=== PATIENT | male | born 1960 | race Caucasian/White ===

== ENCOUNTER 2024-05-01 23:29 | Inpatient (IN) | payer OTHER, SELFPAY ==
[2024-05-01] VITALS (8 sets, daily range): BP systolic 156–172; BP diastolic 84–96; BMI 26.0
[2024-05-01 21:44] LABS: % Basophils 0.5 % (0-2); % Immature Granulocytes 0.3 % (0-0.5); % Lymphocytes 22.2 % (20.5-51.1); % Monocytes 10.1 % (1.7-9.3); % Neutrophils 63.9 % (42.2-75.2); Absolute Eosinophils 0.2 10^3/uL (0-0.7); Absolute Lymphocytes 1.3 10^3/uL (1.2-3.4); Absolute Monocytes 0.6 10^3/uL (0.1-0.6); Absolute Neutrophils 3.8 10^3/uL (1.4-6.5); Hematocrit 45.7 % (39.0-52.0); Hemoglobin 15.2 g/dL (13.0-18.0); Mean Corp Hgb Conc. 33.3 g/dL (33.0-37.0); Mean Corpuscular Hgb 28.6 pg (27.0-31.0); Mean Corpuscular Volume 86.1 fL (80.0-94.0); Mean Platelet Volume 11.3 fL (7.4-10.4); Nucleated Red Blood Cells % 0 % (-); Platelet Count 163 10^3/uL (130-400); Red Blood Cell Count 5.31 10^6/uL (4.70-6.10); Red Cell Dist. Width 13.1 % (11.5-14.5); White Blood Cell Count 5.9 10^3/uL (4.8-10.8)
--- NOTE | 2024-05-01 21:53 | PHANOTE ---
med rec note- patient has no ecw and not making full sentence. family has not since patient in about a week . patient in car by himself
[2024-05-01 21:54] LABS: INR 0.96; PT 12.5 Sec (11.4-14.6)
[2024-05-01 21:57] LABS: ALT (SGPT) 27 U/L (0-50); AST (SGOT) 29 U/L (17-59); Albumin 4.3 g/dl (3.5-5.0); Alkaline Phosphatase 91 U/L (38-126); Blood Urea Nitrogen 16 mg/dl (9-20); Calcium 9.4 mg/dl (8.4-10.2); Carbon Dioxide 27 mmol/L (22-30); Chloride 101 mmol/L (98-107); Estimated Creatinine Clearance 68 ml/min; Glucose 224 mg/dl (70-99); Potassium 4.8 mmol/L (3.5-5.1); Sodium 141 mmol/L (135-145); Total Bilirubin 0.4 mg/dl (0.2-1.3); Total Protein 7.3 g/dl (6.3-8.2); eGFR > 60.00
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
[2024-05-01 22:08] LABS: Troponin I < 0.012 ng/ml
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
[2024-05-01] MEDS: ASPIRIN 300 MG RECTAL (23:45)
[2024-05-02] VITALS (20 sets, daily range): BP systolic 134–187; BP diastolic 76–119; PULSE 98–102; BMI 24.6
--- NOTE | 2024-05-02 | EDRN ---
Patient saturated in urine, changed brief, sheets and pulled up in bed, resting comfortably at this time, will call report to get patient upstairs.
--- NOTE | 2024-05-02 03:05 | PTCARENOTE ---
Pt admitted from ED. Assessment completed. Pt Q4 neuro and Qshift NIHSS. Pt assessment difficult due to diagnosis of Asperger syndrome (per the sister). Pt answering some question. Therapeutic communication tactics helped with talking more and
answering some questions, even smiled with laugh a few times. Pt appears easily over stimulated. Pt did state he feel anxious 'quite often' and sad because of 'autism'. Emotional support given. Pt able to minimally move (twitch) left leg when bottom
of left foot is touched, per ED RN this is new. Pt having no sensation or intentional movement in left arm. Left arm does posture up to chest with fingers bent and in fist, rolled washcloth placed in hand. Pt neck and head gravitates to right, Pt
able to turn head all the way left when asked. Pt follows finger but appears to look off then come right back to where finger has stopped. In what presents as a over stimulated way rather than loss of sight or drift. pt has call hutchison within reach
with education given. bed alarm on. Vitals stable at this time. Assessment care and vitals as charted.
[2024-05-02 05:40] LABS: Glucose - Point of Care 228 mg/dl (70-99)
[2024-05-02 05:45] LABS: Hematocrit 46.6 % (39.0-52.0); Hemoglobin 15.7 g/dL (13.0-18.0); Mean Corp Hgb Conc. 33.7 g/dL (33.0-37.0); Mean Corpuscular Hgb 28.5 pg (27.0-31.0); Mean Corpuscular Volume 84.7 fL (80.0-94.0); Mean Platelet Volume 11.7 fL (7.4-10.4); Platelet Count 172 10^3/uL (130-400); Red Cell Dist. Width 12.8 % (11.5-14.5); White Blood Cell Count 9.2 10^3/uL (4.8-10.8)
[2024-05-02 06:16] LABS: Troponin I < 0.012 ng/ml
[2024-05-02 06:20] LABS: Blood Urea Nitrogen 15 mg/dl (9-20); Calcium 9.3 mg/dl (8.4-10.2); Carbon Dioxide 23 mmol/L (22-30); Chloride 100 mmol/L (98-107); Estimated Creatinine Clearance 84 ml/min; Glucose 227 mg/dl (70-99); HDL Cholesterol 41 mg/dl; Magnesium 1.9 mg/dl (1.6-2.3); Potassium 4.3 mmol/L (3.5-5.1); Sodium 138 mmol/L (135-145); Total Cholesterol 278 mg/dl (50-199); eGFR > 60.00
[2024-05-02 06:48] LABS: Triglyceride 469 mg/dl (10-149)
[2024-05-02 07:21] LABS: Glucose - Point of Care 216 mg/dl (70-99)
[2024-05-02 07:30] LABS: LDL Cholesterol, Direct 147 mg/dl
--- NOTE | 2024-05-02 07:46 | PTCARENOTE ---
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 Pt becoming more hypertensive. Pt assessed, repositioned, temp taken (98.8). Pain assessed, labs unremarkable other than cholesterol. Per pt
not pain 'discomfort'. Day RN to contact Pt
--- NOTE | 2024-05-02 08:40 | PTOTSP ---
Speech Language Pathology
Pt seen for speech and language evaluations. Significantly decreased verbal initiation noted. Pt would immediately answer NURSE INFECTION CONTROL at times, and not answer at all at other times. When verbalizing, no dysarthria noted. L inattention noted with R gaze
preference. Language evaluated via the Quick Aphasia Battery (QAB), form 1. Results likely skewed given lack of responses many times. Overall score of 5.37, indicative of moderate deficits. Pt with the following deficits on the following
subtests: word comprehension= 7.08 (moderate); sentence comprehension= 0.00 (severe); word finding= 7.00 (mod); grammatical construction= 8.88 9 (mild); speech motor programming= 10.00 (WNL); repetition= 0.00 (severe); reading= 6.25 (moderate).
Pt also seen for clinical bedside swallow evaluation. P.O. trials of puree, regular solids, and thin liquids. Adequate mastication, bolus formation, and A-P transit noted with no oral residue. No overt signs of aspiration.
Recommend:
(1) Regular solids/thin liquids
(2) General aspiration precautions
(3) Meds as tolerated
(4) NURSE INFECTION CONTROL to continue to follow. Further dysphagia services not indicated. Will follow for cognitive-linguistic tx
[2024-05-02] MEDS: LOW STRENGTH ASPIRIN 81 MG PO (09:44)
[2024-05-02] MEDS: LOPRESSOR 12.5 MG PO ×2 (09:44→21:29)
[2024-05-02] MEDS: PLAVIX 75 MG PO (09:44)
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
[2024-05-02] MEDS: NOVOLOG FLEXPEN-MODERATE RESISTANCE 3 UNITS SC ×2 (11:15→14:45)
[2024-05-02 11:28] LABS: Glycohemoglobin (HgbA1c) 8.9 % (4.0-5.6)
--- NOTE | 2024-05-02 12:05 | PTCARENOTE ---
Received patient from hourly shift. Patient scored a 12 on NIH. Difficult to assess patient due Asbergers. Patient will not respond to certain questions or perform certain tasks. Patients can become tachycardic jumping up to the 130s, physician
notified and 12.5 mg metoprolol ordered. Patient ate small breakfast. Call hutchison within reach. Continuing to monitor.
[2024-05-02 13:18] LABS: Glucose - Point of Care 216 mg/dl (70-99)
--- NOTE | 2024-05-02 14:02 | W.PN.HOSP.TC ---
Today's Communication/Plan
-
See plan
Assessment / Plan
Assessment / Plan
Impression:
Acute right REMI territory infarct with left hemiparesis.
History of multiple CVA
Essential hypertension
NIDDM.
Plan:
Right REMI territory infarct.
MRI of the brain:
1. LARGE 8.6 cm ACUTE ISCHEMIC INFARCT in the ANTEROMEDIAL RIGHT FRONTAL LOBE (right anterior cerebral artery territory) containing severe cytotoxic edema.
2. Multiple small chronic infarcts in the white matter of both frontal lobes.
3. Small chronic lacunar infarcts in the basal ganglia.
4. Severe white matter leukoaraiosis in the frontal and parietal lobes.
5. Mild Wallerian degeneration in the right side of the midbrain and lisa.
6. Moderate diffuse cerebral and cerebellar volume loss.
CTA
There is absent flow/occlusion in the right anterior cerebral artery beyond the A2 segment of the right anterior cerebral artery with absent flow in the proximal portions of the right callosal marginal and pericallosal arteries with cross filling of
distal pericallosal branches
Risk factors dyslipidemia/LDL 147
Diabetes
ECG NSR/sinus tach. No known history of arrhythmias.
Was not a candidate for thrombolytics given unknown time of onset of symptoms/duration.
Initiated on dual antiplatelet therapy: Aspirin�Plavix.
Statin.
Permissive hypertension over the next 24 hours.
Echocardiogram pending
Follow neurochecks.
Physical therapy assessment
Essential hypertension
Permissive hypertension for the next 24 hours
Given significantly elevated SBP and tachycardia will initiate low-dose of beta-neftaly. Monitor closely
Type 2 diabetes
Hemoglobin A1c pending.
Confirm preadmission med regimen.
Continue basal bolus protocol with serial Accu-Cheks. Diet has been advanced with aspiration precautions.
Anticipated Discharge: 24 - 48 hours
Subjective/Interval History
-
Date of Service: May 02, 2024
Objective Data
-
Labs:
Laboratory Results
05/02/24
05:32
WBC 9.2
Hgb 15.7
Hct 46.6
Plt Count 172
Sodium 138
Potassium 4.3
Chloride 100
Carbon Dioxide 23
BUN 15
Creatinine 1.0
Glucose 227 H
Calcium 9.3
Vital Signs:
Vital Signs
Temp Pulse Resp BP Pulse Ox
98.4 F 112 21 172/111 94
05/02/24 13:10 05/02/24 09:44 05/02/24 06:45 05/02/24 09:44 05/02/24 06:45
I&O
05/01/24 05/02/24 05/03/24
06:59 06:59 06:59
Output Total 400 / 400 400 / 400
Balance -400 / -400 -400 / -400
Physical Exam
-
General: Well Developed and No Apparent Distress
HEENT: Normocephalic, Atraumatic and Moist Mucous Membranes
Respiratory: Clear to Auscultation
Cardiac: Regular Rhythm and S1/S2; Negative Murmur, Rub or Gallop
GI: Soft, Nontender, Nondistended and Normal Bowel Sounds; Negative Organomegaly
Rectal: Deferred by Provider
Musculoskeletal: No Clubbing, No Cyanosis and No Edema
Skin: Negative Rash
Neuro: Awake, Alert, Oriented and Other (Slow and intermittent response to questions. Left hemiparesis.)
[2024-05-02] MEDS: PROTONIX 20 MG PO (16:04)
--- NOTE | 2024-05-02 16:27 | CM ---
Patient with Hx Asperger Syndrome with Dx CVA with left hemiparesis. Room air. Brain MRI today. PT & OT recommends acute rehab. Physiatry Consult pending.
Spoke with patient's sister Poornima;
the patient resides alone in a mobile home with 4 TOPHER.
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 He had
rambling paranoid speech.
He has some housing insecurity due to not working and not paying his rent for several months- sister had to pay out about $3000 for his rent.
No prior DME, VN, SNF.
Pharmacy - [facility], [place]
The patient has no children. He has another sister in [facility].
The patient does not have a POA - Poornima is the process of doing POA.
Discussed patient's current functional status as per PT/OT. Poornima was informed re; Physiatry Consult. She is aware that if he goes to [facility] for [place] he would need a terminal block assembler plan, likely SNF placement. She would be interested in [facility] as
patient's mother resides there.
Case discussed with [facility] Liaison.
Plan follow up after seen by Physiatry.
--- NOTE | 2024-05-02 16:56 | CM ---
Patient with Hx Asperger Syndrome with Dx CVA with left hemiparesis. Room air. Brain MRI today. PT & OT recommends acute rehab. Physiatry Consult pending.
Spoke with patient's sister Poornima;
the patient resides alone in a mobile home with 4 TOPHER.
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
sugar. The patient has not been showering and not cleaning his home. He has had rambling paranoid speech per his sister.
His sister had contacted [facility] for resources.
He has some housing insecurity due to not working and not paying his rent for several months- sister had to pay out about $3000 for his rent.
No prior DME, VN, SNF.
Pharmacy - [facility] [address], [place]
The patient has no children. He has another sister in [facility].
The patient does not have a POA - Poornima is the process of doing POA.
Discussed patient's current functional status as per PT/OT. Poornima was informed re; Physiatry Consult. She is aware that if he goes to [facility] for [place] he would need a prison plan, likely SNF placement. She would be interested in [facility] as
patient's mother resides there.
Case discussed with [facility]iaison.
Plan follow up after seen by Physiatry.
[2024-05-02] MEDS: NOVOLOG FLEXPEN-MODERATE RESISTANCE 5 UNITS SC (17:49)
[2024-05-02] MEDS: LIPITOR 80 MG PO (17:52)
[2024-05-02 17:58] LABS: Glucose - Point of Care 264 mg/dl (70-99)
[2024-05-02 21:43] LABS: Glucose - Point of Care 187 mg/dl (70-99)
[2024-05-02] MEDS: TYLENOL 650 MG PO (21:47)
[2024-05-03] VITALS (13 sets, daily range): BP systolic 102–175; BP diastolic 64–110; PULSE 79
--- NOTE | 2024-05-03 01:34 | PTCARENOTE ---
Addendum entered by Sherry Schaffer RN 05/03/24 05:26:
Per neurology Recommendations, Permissive HTN. See work list for vital trend.
Original Note:
Pt able to communicate at times. Pt appearing to be more somber and tired this shift. Pt did laugh 2 times with RN. Pt not responding verbally a much as previous night. Pt able to communicate better with thumbs up thumbs down questions. Pt continues
on NIH and neuro checks, assessments difficult due to HX of Asperger. Call within reach. bed alarm on. Assessment care and vitals as charted.
--- NOTE | 2024-05-03 06:29 | PTCARENOTE ---
Pt taking out IV. VAT called and replaced.
[2024-05-03] MEDS: LOPRESSOR 12.5 MG PO (08:19)
[2024-05-03] MEDS: NOVOLOG FLEXPEN-MODERATE RESISTANCE 3 UNITS SC ×2 (08:19→17:11)
[2024-05-03] MEDS: PLAVIX 75 MG PO (08:19)
[2024-05-03] MEDS: PROTONIX 20 MG PO (08:19)
[2024-05-03] MEDS: LOW STRENGTH ASPIRIN 81 MG PO (08:20)
[2024-05-03 08:21] LABS: Glucose - Point of Care 248 mg/dl (70-99)
--- NOTE | 2024-05-03 09:50 | PN.CDI ---
CDI
- -
CDI:
Physician Documentation Request
Admit Date: 05/01/24 23:29
Dear Doctor Ck,
Please review the following and provide your response in the progress notes.
Clinical Indicators
The diagnosis of cytotoxic edema was included in the signed MRI of brain on 05/02/24.
Additional clinical indicators in the chart include:
Pt admitted with stroke.
05/02 brain MRI: 'Large acute infarct demonstrates restricted diffusion and contains a large amount of acute cytotoxic edema.'
Please indicate in your progress notes if you are in agreement that the above diagnosis is valid for this patient:
Cytotoxic edema is a valid diagnosis (Please include it in your progress notes)
Cytotoxic edema is not a valid diagnosis for this patient
Cytotoxic edema is not yet confirmed but remains a suspected condition
Other
Use of terms such as suspected, likely, concern for, or probable are acceptable for a diagnosis that is being evaluated, monitored or treated as if it exists and can be coded in the inpatient setting, when documented at the time of discharge.
Thank you,
Grace Hansen RN, BSN
CDI Specialist
Available via [place] [employer]
Please use your independent medical judgment in providing your response.
--- NOTE | 2024-05-03 10:44 | PTCARENOTE ---
Pt slightly restless today, pulling off condom cath and clothing frequently. Emotional support provided. Goal normotension today, plan discussed with neurologist Dr. Stover at bedside.
--- NOTE | 2024-05-03 10:55 | PTCARENOTE ---
Plan discussed with attending, will resume medications for diabetes and blood pressure control, will downgrade pt to med surg.
[2024-05-03] MEDS: ZESTRIL 5 MG PO (11:50)
[2024-05-03] MEDS: ACTOS 15 MG PO (11:50)
[2024-05-03] MEDS: NOVOLOG FLEXPEN-MODERATE RESISTANCE 5 UNITS SC (11:50)
[2024-05-03 11:54] LABS: Glucose - Point of Care 295 mg/dl (70-99)
--- NOTE | 2024-05-03 14:32 | PTCARENOTE ---
Pt written for transfer to [facility], attempt to call report to [facility] -RN unavailable at this time.
--- NOTE | 2024-05-03 14:58 | W.PN.HOSP.TC ---
Today's Communication/Plan
-
DAPT.
Statin.
PT/physiatry evaluation.
Adjust antihypertensive regimen.
Reintroduce Actos. Continue basal bolus protocol with serial Accu-Cheks.
Assessment / Plan
Assessment / Plan
Impression:
Acute right REMI territory infarct with left hemiparesis.
History of multiple CVA
Essential hypertension
NIDDM.
Asperger syndrome reported
Plan:
Right REMI territory infarct.
MRI of the brain:
1. LARGE 8.6 cm ACUTE ISCHEMIC INFARCT in the ANTEROMEDIAL RIGHT FRONTAL LOBE (right anterior cerebral artery territory) containing severe cytotoxic edema.
2. Multiple small chronic infarcts in the white matter of both frontal lobes.
3. Small chronic lacunar infarcts in the basal ganglia.
4. Severe white matter leukoaraiosis in the frontal and parietal lobes.
5. Mild Wallerian degeneration in the right side of the midbrain and lisa.
6. Moderate diffuse cerebral and cerebellar volume loss.
CTA
There is absent flow/occlusion in the right anterior cerebral artery beyond the A2 segment of the right anterior cerebral artery with absent flow in the proximal portions of the right callosal marginal and pericallosal arteries with cross filling of
distal pericallosal branches
Risk factors dyslipidemia/LDL 147
Diabetes
ECG NSR/sinus tach. No known history of arrhythmias.
Found not to be a candidate for thrombolytics given unknown time of onset of symptoms/duration.
Initiated on dual antiplatelet therapy: Aspirin�Plavix. For 21 days with aspirin on day 22.
Statin.
Permissive hypertension over the next 24 hours.
Echocardiogram with preserved biventricular function and no evidence of cardioembolic source.
Physical therapy assessment
Physiatry consultation
Essential hypertension
Adjust antihypertensive regimen with increased dose of Toprol and addition of lisinopril.
Type 2 diabetes
Hemoglobin A1c 8.9
Resume Actos
Continue basal bolus protocol.
Adjust accordingly
Anticipated Discharge: 24 - 48 hours
Subjective/Interval History
-
Date of Service: May 03, 2024
Objective Data
-
Vital Signs:
Vital Signs
Temp Pulse Resp BP Pulse Ox
98.3 F 86 18 137/88 97
05/03/24 11:00 05/03/24 14:36 05/03/24 14:36 05/03/24 14:36 05/03/24 07:15
I&O
05/02/24 05/03/24 05/04/24
06:59 06:59 06:59
Intake Total 60 / 60
Output Total 400 / 400 850 / 850
Balance -400 / -400 -790 / -790
Physical Exam
-
General: Well Developed and No Apparent Distress
HEENT: Normocephalic, Atraumatic and Moist Mucous Membranes
Respiratory: Clear to Auscultation
Cardiac: Regular Rhythm and S1/S2; Negative Murmur, Rub or Gallop
GI: Soft, Nontender, Nondistended and Normal Bowel Sounds; Negative Organomegaly
Rectal: Deferred by Provider
Musculoskeletal: No Clubbing, No Cyanosis and No Edema
Skin: Negative Rash
Neuro: Awake, Alert, Oriented and Other (Slow and intermittent response to questions. Left hemiparesis and neglect)
--- NOTE | 2024-05-03 15:09 | PTCARENOTE ---
Report given to YASMIN Gonzales, will send pt up to [facility] when finished working with PT/OT.
[2024-05-03 15:52] LABS: Glucose - Point of Care 228 mg/dl (70-99)
--- NOTE | 2024-05-03 16:41 | CM ---
Patient with Hx Asperger Syndrome with Dx CVA with left hemiparesis. Room air. PT & OT recommends acute rehab. Physiatry Consult pending.
Message to [facility] Liaison & Dr Blackman requesting Physiatry Eval.
Message from [facility]; not sure patient will be able to tolerate acute rehab. Will see how he does in therapy and revisit tomorrow.
Met with patient while he was working with PT/OT.
Met with mother and patient's sister Poornima; provided Poornima with 2 types of POA applications for healthcare or financial POAs, as found on [employer], official [place] website. His sister plans on having notary come in and establishing POA to help
patient with LTC plans.
Plan follow up with [facility] after PT/OT Re-eval tomorrow.
[2024-05-03] MEDS: LIPITOR 80 MG PO (17:15)
[2024-05-03 21:34] LABS: Glucose - Point of Care 252 mg/dl (70-99)
--- NOTE | 2024-05-03 21:37 | PTCARENOTE ---
Patient uncooperative with NIH, he follow basic commends like lifting his right hand and foot but refused to answer any question or open his eyes. When I attempted to open his eyes he close it tighter. Will try NIH later.
[2024-05-04 03:10] VITALS: BP 133/85
[2024-05-04 07:24] VITALS: BP 146/80
[2024-05-04 07:37] LABS: Glucose - Point of Care 270 mg/dl (70-99)
[2024-05-04] MEDS: NOVOLOG FLEXPEN-MODERATE RESISTANCE 5 UNITS SC ×2 (08:50→13:45)
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
--- NOTE | 2024-05-04 09:30 | PTOTSP ---
Speech Language Pathology
Pt seen for speech/language therapy. Upon arrival, pt sleeping. No response to verbal or tactile stimulation, including sternal rub. Notified PCT and RNs assessed pt. Once RN manually opened pt's eyes, eyes remained open for short period of
time. Vital signs stable. Attempted therapy with minimal ability to participate. Eyes remained closed unless manually opened by CARGO SUPERVISOR. They would remain open for less than a minute at times, and pt visually fixated on CARGO SUPERVISOR x2, but did not visually
track. Intermittent 1-step command following (60%). Minimal head shake/nod noted to 4 yes/no questions during entirety of session, including pt shaking head yes to 'Are you having more trouble talking?' No verbalizations or vocalizations noted
despite max cueing.
Pt also seen for dysphagia tx. Per PCT and RN, pt ate breakfast with some assistance this date. Oral holding of liquids was frequently noted per their report. This was not noted on evaluation 05/02. Pt accepted small sip of water via straw. No
oral manipulation noted despite max cueing (verbal, tactile, etc). CARGO SUPERVISOR had to get oral swab to push water out of oral cavity. Further P.O. trials deferred. Concerned regarding change in status from evaluation on 05/02. Notified neurology and
hospitalist.
Recommend:
(1) NPO
(2) Oral care 4x/day with suctioning as needed
(3) Non-oral meds while largely unresponsive
(4) CARGO SUPERVISOR to continue to follow
[2024-05-04 09:39] LABS: Glucose - Point of Care 293 mg/dl (70-99)
[2024-05-04] MEDS: TYLENOL/FEVERALL 650 MG RECTAL (10:40)
[2024-05-04] MEDS: ACTOS PO (11:28)
[2024-05-04] MEDS: NSS 1000 IV (11:28)
[2024-05-04 11:51] LABS: % Basophils 0.4 % (0-2); % Eosinophils 0.3 % (0-6); % Immature Granulocytes 0.2 % (0-0.5); % Lymphocytes 12.2 % (20.5-51.1); % Monocytes 10.3 % (1.7-9.3); % Neutrophils 76.6 % (42.2-75.2); Absolute Lymphocytes 1.2 10^3/uL (1.2-3.4); Absolute Neutrophils 7.5 10^3/uL (1.4-6.5); Hematocrit 47.3 % (39.0-52.0); Hemoglobin 16.4 g/dL (13.0-18.0); Mean Corp Hgb Conc. 34.7 g/dL (33.0-37.0); Mean Corpuscular Hgb 29.6 pg (27.0-31.0); Mean Corpuscular Volume 85.4 fL (80.0-94.0); Mean Platelet Volume 11.3 fL (7.4-10.4); Nucleated Red Blood Cells % 0 % (-); Platelet Count 165 10^3/uL (130-400); Red Blood Cell Count 5.54 10^6/uL (4.70-6.10); Red Cell Dist. Width 13.2 % (11.5-14.5); White Blood Cell Count 9.8 10^3/uL (4.8-10.8)
[2024-05-04 11:56] VITALS: BP 128/70
[2024-05-04 11:58] LABS: Glucose - Point of Care 314 mg/dl (70-99)
[2024-05-04 12:12] LABS: Blood Urea Nitrogen 26 mg/dl (9-20); Calcium 9.2 mg/dl (8.4-10.2); Carbon Dioxide 19 mmol/L (22-30); Chloride 98 mmol/L (98-107); Estimated Creatinine Clearance 70 ml/min; Glucose 329 mg/dl (70-99); Potassium 4.7 mmol/L (3.5-5.1); Sodium 134 mmol/L (135-145); eGFR > 60.00
--- NOTE | 2024-05-04 13:09 | W.PN.NEURO.1 ---
Today's Communication / Plan
-
63-year-old male with history of uncontrolled hypertension right frontal infarct with profound left hemiplegia who was improving. He is currently unresponsive
Plan: CT head/EEG/IV Keppra/chest x-ray/ID consult
Neuro Assessment/Plan
Assessment
63 yr. old male with h/o right frontal infarction with left hemiplegia who is currently febrile and unresponsive
Plan
1. Chest x-ray
2. IV antibiotics
3. ID consult
4. N.p.o.
5. EEG
6. IV KEPPRA
Subjective/Objective
Subjective Data
Date of Service: May 04, 2024
Mr. Varghese remains hemiplegic and following breakfast has been somnolent and difficult to arouse
Objective Data
Vital Signs
Temp Pulse Resp BP Pulse Ox
37.0 C 85 16 128/70 96
05/04/24 11:56 05/04/24 11:56 05/04/24 11:56 05/04/24 11:56 05/04/24 11:56
Lab Results
05/04/24 11:40
05/04/24 11:40
PT 12.5 Sec (11.4-14.6) 05/01/24 21:36
INR 0.96 05/01/24 21:36
APTT 25.0 Sec (23.4-35.0) 05/01/24 21:36
Sodium 134 mmol/L (135-145) L 05/04/24 11:40
Potassium 4.7 mmol/L (3.5-5.1) 05/04/24 11:40
BUN 26 mg/dl (9-20) H 05/04/24 11:40
Glucose 329 mg/dl (70-99) H 05/04/24 11:40
Calcium 9.2 mg/dl (8.4-10.2) 05/04/24 11:40
LDL Cholesterol Direct 147 mg/dl 05/02/24 05:32
LDL Cholesterol, Calc mg/dl 05/02/24 05:32
Patient Allergies
Penicillins Allergy (Verified 05/01/24 21:59)
Unknown
Review of Systems
-
Unable to obtain full review of systems at this time due to: Acuity and Lethargy
Constitutional: Fever
EENT: No Symptoms Reported
Respiratory: No Symptoms
Cardiac: No Symptoms
Abdomen/GI: No Symptoms
Genitourinary: No Symptoms
Musculoskeletal: No Symptoms
Skin: No Symptoms
Neuro: Weakness
Endocrine: No Symptoms
Hematologic / Lymphatic: No Symptoms
Allergy / Immunology: No Symptoms
Physical Exam
-
General: Well Developed, Well Nourished and Comfortable
Eyes: Able to visualize OU, Round OU, [place] Conjunctivae, No Ptosis and PERRLA
HEENT: Normocephalic and Atraumatic
Neck: No Bruits Bilaterally and Full Range of Motion
Respiratory: Decreased Breath Sounds
Cardiac: Regular Rhythm
GI: Normal Bowel Sounds
Skin: Unremarkable
Extremities: No Clubbing, No Cyanosis and No Edema
Psych: Unable to Assess
Extended Neurological Exam
Mood & Affect: Unable to Assess
Attention Span & Concentration: Unresponsive to Verbal Stimuli
Memory: Unable to Assess
Tremor: Hand Tremor Absent and Head Tremor Absent
Involuntary Movement: None
Speech: Unable to Assess
Cranial Nerve II: Left Eye: Visual Cole Grossly Intact
Cranial Nerve II: Right Eye: Visual Cole Grossly Intact
Cranial Nerves III, IV, : Extraocular Movement: Extraocular Movement Full in all Directions
Cranial Nerve V: Facial Sensation: Intact to Light Touch
Cranial Nerve VII: Facial Symmetry: Reduced
Cranial Nerve VIII: Hearing: Unable to Assess
Cranial Nerves IX, X: Palate Movement: Unable to Assess
Cranial Nerve XI: Shoulder Shrug: Unable to Assess
Cranial Nerve XII: Tongue Protusion: Unable to Assess
Muscle Strength, Overall: Reduced on Left
Muscle Bulk & Tone: Increased Tone
Pronator Drift: Unable to Assess
Deep Tendon Reflexes: Trace Throughout
Cold Sensation: Reduced and Unable to Assess
Vibration Sensation: Reduced and Unable to Assess
Touch Sensation: Unable to Assess
Coordination: Unable to Assess
Babinski Sign: Present on Left
Gait & Station: Unable to Assess
Modified Castro Score (MRS)
-
Modified Castro Scale (mRS): Severe disability. Requires constant nursing care.
Score: 5
[2024-05-04] MEDS: DEPACON 55 MG IV (14:15)
[2024-05-04] MEDS: KEPPRA 500 MG IV (14:16)
[2024-05-04] MEDS: PLAVIX PO ×2 (14:39→19:22)
[2024-05-04] MEDS: TOPROL XL PO ×2 (14:39→19:22)
[2024-05-04] MEDS: ZESTRIL PO ×2 (14:40→19:22)
[2024-05-04] MEDS: LIPITOR PO ×2 (14:40→19:22)
[2024-05-04] MEDS: LOW STRENGTH ASPIRIN PO ×2 (14:40→19:21)
[2024-05-04] MEDS: PROTONIX PO ×2 (14:40→19:22)
[2024-05-04 15:15] VITALS: BP 122/74
--- NOTE | 2024-05-04 15:18 | CM ---
CM reviewed chart, spoke with nurse and Dr. Blackman. Per Dr. Blackman, patient not able to participate in therapy, not appropriate for acute rehab at this time. CM will watch for updated PT notes for recommendations. CM will continue to follow for
all discharge planning needs.
Plan; watch for updated PT recommendations, may need SNF vs Acute Rehab is able to participate.
--- NOTE | 2024-05-04 15:25 | W.PN.HOSP.TC ---
Today's Communication/Plan
-
Fever workup.
Aspiration precautions
Empiric antibiotics
Assessment / Plan
Assessment / Plan
Impression:
Acute right REMI territory infarct with left hemiparesis.
Fever
History of multiple CVA
Essential hypertension
NIDDM.
Asperger syndrome reported
Plan:
Right REMI territory infarct.
MRI of the brain:
1. LARGE 8.6 cm ACUTE ISCHEMIC INFARCT in the ANTEROMEDIAL RIGHT FRONTAL LOBE (right anterior cerebral artery territory) containing severe cytotoxic edema.
2. Multiple small chronic infarcts in the white matter of both frontal lobes.
3. Small chronic lacunar infarcts in the basal ganglia.
4. Severe white matter leukoaraiosis in the frontal and parietal lobes.
5. Mild Wallerian degeneration in the right side of the midbrain and lisa.
6. Moderate diffuse cerebral and cerebellar volume loss.
CTA
There is absent flow/occlusion in the right anterior cerebral artery beyond the A2 segment of the right anterior cerebral artery with absent flow in the proximal portions of the right callosal marginal and pericallosal arteries with cross filling of
distal pericallosal branches
Risk factors dyslipidemia/LDL 147
Diabetes
ECG NSR/sinus tach. No known history of arrhythmias.
Found not to be a candidate for thrombolytics given unknown time of onset of symptoms/duration.
Initiated on dual antiplatelet therapy: Aspirin�Plavix. For 21 days with aspirin on day 22.
Statin.
Permissive hypertension over the next 24 hours.
Echocardiogram with preserved biventricular function and no evidence of cardioembolic source.
Physical therapy assessment
Physiatry consultation
New onset of fever 05/03 - 05/04.
Lethargic.
Concern for evolving infection/sepsis: At risk for aspiration, UTI
Sepsis workup including blood culture, urinalysis with reflex to culture
Chest x-ray with no parenchymal abnormalities, although with significant risk for aspiration
Keep n.p.o. while awaiting oral medications with caution.
Repeat CT scan of the head.
Empiric antibiotics: Ceftriaxone covering potential UTI versus aspiration
IV fluids normotonic solution for maintenance
Essential hypertension
Adjust antihypertensive regimen with increased dose of Toprol and addition of lisinopril.
Type 2 diabetes
Hemoglobin A1c 8.9
Given persistent neurologic deficiencies hold Actos
Continue basal bolus protocol
Anticipated Discharge: > 48 hours
Subjective/Interval History
-
Date of Service: May 04, 2024
Objective Data
-
Labs:
Laboratory Results
05/04/24
11:40
WBC 9.8
Hgb 16.4
Hct 47.3
Plt Count 165
Sodium 134 L
Potassium 4.7
Chloride 98
Carbon Dioxide 19 L
BUN 26 H
Creatinine 1.2
Glucose 329 H
Calcium 9.2
Vital Signs:
Vital Signs
Temp Pulse Resp BP Pulse Ox
98.7 F 69 18 122/74 96
05/04/24 15:15 05/04/24 15:15 05/04/24 15:15 05/04/24 15:15 05/04/24 15:15
I&O
05/03/24 05/04/24 05/05/24
06:59 06:59 06:59
Intake Total 60 / 60
Output Total 850 / 850 125 / 125
Balance -790 / -790 -125 / -125
Physical Exam
-
General: Well Developed and No Apparent Distress
HEENT: Normocephalic, Atraumatic and Moist Mucous Membranes
Respiratory: Clear to Auscultation
Cardiac: Regular Rhythm and S1/S2; Negative Murmur, Rub or Gallop
GI: Soft, Nontender, Nondistended and Normal Bowel Sounds; Negative Organomegaly
Rectal: Deferred by Provider
Musculoskeletal: No Clubbing, No Cyanosis and No Edema
Skin: Negative Rash
Neuro: Other (Left hemiparesis and neglect. Lethargic)
[2024-05-04] MEDS: STERILE WATER FOR INJECTION 10 ML IV (17:59)
[2024-05-04] MEDS: ROCEPHIN 1000 MG IV (17:59)
[2024-05-04 18:12] LABS: Glucose - Point of Care 151 mg/dl (70-99)
[2024-05-04] MEDS: NOVOLOG FLEXPEN-MODERATE RESISTANCE 1 UNITS SC (18:45)
[2024-05-04 18:59] LABS: Urine Albumin Trace (Neg - Trace); Urine Bilirubin Negative (Negative); Urine Character Clear (Clear); Urine Color Yellow; Urine Glucose 3+ (Negative); Urine Ketone Trace (Negative); Urine Leukocyte Negative (Negative); Urine Nitrite Negative (Negative); Urine Occult Blood Negative (Negative); Urine Specific Gravity 1.025 (<1.030); Urine Urobilinogen Negative (Neg - 1+)
[2024-05-04 19:53] VITALS: BP 142/73
[2024-05-04 23:14] LABS: Glucose - Point of Care 218 mg/dl (70-99)
[2024-05-04 23:17] VITALS: BP 120/76
[2024-05-04] MEDS: NOVOLOG FLEXPEN-MODERATE RESISTANCE 3 UNITS SC (23:28)
[2024-05-05] VITALS (8 sets, daily range): BP systolic 107–143; BP diastolic 53–83; PULSE 66; O2SAT 98
[2024-05-05] MEDS: KEPPRA 500 MG IV ×2 (02:19→14:46)
[2024-05-05] MEDS: NSS 1000 IV ×2 (02:22→16:15)
[2024-05-05 06:07] LABS: Glucose - Point of Care 210 mg/dl (70-99)
[2024-05-05] MEDS: NOVOLOG FLEXPEN-MODERATE RESISTANCE 3 UNITS SC (06:10)
[2024-05-05] MEDS: PROTONIX PO (07:49)
[2024-05-05] MEDS: PLAVIX PO (07:49)
[2024-05-05] MEDS: LOW STRENGTH ASPIRIN PO (07:49)
[2024-05-05] MEDS: TOPROL XL PO (07:49)
[2024-05-05] MEDS: ZESTRIL PO (07:49)
[2024-05-05 07:53] LABS: % Basophils 0.4 % (0-2); % Eosinophils 1.8 % (0-6); % Immature Granulocytes 0.4 % (0-0.5); % Lymphocytes 17.2 % (20.5-51.1); % Monocytes 10.6 % (1.7-9.3); % Neutrophils 69.6 % (42.2-75.2); Absolute Eosinophils 0.1 10^3/uL (0-0.7); Absolute Lymphocytes 1.4 10^3/uL (1.2-3.4); Absolute Monocytes 0.8 10^3/uL (0.1-0.6); Absolute Neutrophils 5.5 10^3/uL (1.4-6.5); Hematocrit 45.3 % (39.0-52.0); Hemoglobin 15.3 g/dL (13.0-18.0); Mean Corp Hgb Conc. 33.8 g/dL (33.0-37.0); Mean Corpuscular Hgb 28.8 pg (27.0-31.0); Mean Corpuscular Volume 85.2 fL (80.0-94.0); Nucleated Red Blood Cells % 0 % (-); Platelet Count 153 10^3/uL (130-400); Red Blood Cell Count 5.32 10^6/uL (4.70-6.10); Red Cell Dist. Width 13.2 % (11.5-14.5); White Blood Cell Count 7.9 10^3/uL (4.8-10.8)
[2024-05-05] MEDS: DEPACON IV (08:00)
[2024-05-05 08:25] LABS: Blood Urea Nitrogen 23 mg/dl (9-20); Calcium 8.7 mg/dl (8.4-10.2); Carbon Dioxide 21 mmol/L (22-30); Chloride 101 mmol/L (98-107); Estimated Creatinine Clearance 77 ml/min; Glucose 190 mg/dl (70-99); Potassium 4.2 mmol/L (3.5-5.1); Sodium 138 mmol/L (135-145); eGFR > 60.00
--- NOTE | 2024-05-05 09:35 | PTOTSP ---
Speech Language Pathology
Pt seen for cognitive-lingusitic tx. Initially drowsy with no response to verbal or tactile stimulation. However, after oral suctioning, eyes open and pt more alert. Mod-severe cognitive-linguistic deficits noted. No verbalizations or
vocalizations noted during session despite max cueing. When asked pt if he was having trouble, he shook his head yes. Pt able to visually fixate on FIELD MARKETING MANAGER and able to track FIELD MARKETING MANAGER to L side of bed given mod cueing. Simple yes/no questions answered 50%
of the time. He followed 1-step commands 50% of the time as well.
Pt also seen for dysphagia tx. Sister reported that pt has had choking episodes since CVA 3 years ago. Consistently oral holding thin liquids without swallow initiation. Oral suctioning completed. With puree and moderately thick liquids,
prolonged bolus formation and A-P transit noted, but was able to initiate swallow without oral residue. No overt signs of aspiration, but unable to rule out silent aspiration bedside. Pt will need VSE, but will wait until more consistently
responsive.
Recommend:
(1) Cautious initiation of IDDSI Level 4 (Puree) and Moderately thick liquids
(2) Aspiration precautions: sit upright, full supervision with assist as needed, slow rate, liquids via tsp or single cup sips, ensure oral cavity clear post P.O. intake with oral suctioning
(3) If oral holding consistently noted, stop meal
(4) If signs of aspiration with P.O. intake, make NPO
(5) Meds crushed in puree
(6) Will determine appropriate timing of VSE
(7) FIELD MARKETING MANAGER to continue to follow
[2024-05-05] MEDS: DEPACON 55 MG IV (09:44)
--- NOTE | 2024-05-05 10:40 | CM ---
Patient seen at bedside with sister Merrill
States she is working on POA with a instructional technologist.
Per note from Catherine Hilton from [facility], based on his current status, he would be a candidate for SNF.
Options of SNF given to sister. Discussed looking at facilities as well.
Sister also stated he would need SNF with LTC.
Referrals placed to [facility] - Will need authorization.
PLAN: Discharge when medically stable to SNF/LTC
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
[2024-05-05 12:25] LABS: Glucose - Point of Care 163 mg/dl (70-99)
[2024-05-05] MEDS: NOVOLOG FLEXPEN-MODERATE RESISTANCE 1 UNITS SC ×2 (12:29→17:08)
--- NOTE | 2024-05-05 12:59 | W.PN.NEURO.1 ---
Documented by User: Claudette Rod NP 05/05/24 13:58
Today's Communication / Plan
-
.
Neuro Assessment/Plan
Assessment
This is a 63-year-old male who presented to on 05/01/24 with report of confusion, aphasia, and left sided hemiparesis. He was outside of the time window for TNK/IAT.
05/04/24 AMS, patient obtunded. Febrile to 101.2 and exam concerning for seizure. Keppra initiated.
-CTA head/neck 05/01/24: There is absent flow/occlusion in the right anterior cerebral artery beyond the A2 segment of the right anterior cerebral artery with absent flow in the proximal portions of the right callosal marginal and pericallosal
arteries with cross filling of distal pericallosal branches.
-MRI brain 05/02/24: LARGE 8.6 cm ACUTE ISCHEMIC INFARCT in the ANTEROMEDIAL RIGHT FRONTAL LOBE (right anterior cerebral artery territory) containing severe cytotoxic edema. Multiple small chronic infarcts in the white matter of both frontal lobes.
Small chronic lacunar infarcts in the basal ganglia. Severe white matter leukoaraiosis in the frontal and parietal lobes. Mild Wallerian degeneration in the right side of the midbrain and lisa. Moderate diffuse cerebral and cerebellar volume loss.
-EEG 05/04/24: pending.
I. Large R REMI territory ischemic infarct in the setting of R A2 REMI occlusion. Etiology possibly cardioembolic.
II. Multiple old chronic infarcts.
III. NIDDM.
IV. HLD
V. HTN
Plan
-Continue Keppra 500mg IV q12hrs.
-Continue DAPT with aspirin 81mg daily and Plavix 75mg daily for 21 days. After 21 days, stop Plavix and continue aspirin 81mg daily only, indefinitely.
-Goal normotension.
-Goal normothermia.
-Monitor on telemetry, consider outpatient Holter monitoring.
-LDL goal <70. LDL is 147. Continue atorvastatin 80mg daily.
-Goal normoglycemia, hbA1c is 8.9.
-NIHSS and neurological checks per unit guidelines.
-Patient provided with a stroke education packet.
-PT/OT/ST evaluations.
-DVT prophylaxis.
-Patient should follow-up with Neurology in 4-6 weeks, may see the LUGGAGE LINER or one of the physicians.
Subjective/Objective
Subjective Data
Date of Service: May 05, 2024
No acute events overnight. Patient is still lethargic today but was more alert and interactive this morning per his family at bedside. No further fevers. His left side was previously spastic, and is now normal tone.
Objective Data
Vital Signs
Temp Pulse Resp BP Pulse Ox
97.9 F 64 18 122/81 97
05/05/24 11:54 05/05/24 11:54 05/05/24 11:54 05/05/24 11:54 05/05/24 11:54
Lab Results
05/05/24 06:39
05/05/24 06:39
PT 12.5 Sec (11.4-14.6) 05/01/24 21:36
INR 0.96 05/01/24 21:36
APTT 25.0 Sec (23.4-35.0) 05/01/24 21:36
Sodium 138 mmol/L (135-145) 05/05/24 06:39
Potassium 4.2 mmol/L (3.5-5.1) 05/05/24 06:39
BUN 23 mg/dl (9-20) H 05/05/24 06:39
Glucose 190 mg/dl (70-99) H 05/05/24 06:39
Calcium 8.7 mg/dl (8.4-10.2) 05/05/24 06:39
LDL Cholesterol Direct 147 mg/dl 05/02/24 05:32
LDL Cholesterol, Calc mg/dl 05/02/24 05:32
Patient Allergies
Penicillins Allergy (Verified 05/01/24 21:59)
Unknown
LDL Level: >70, statin ordered
Review of Systems
-
Unable to obtain full review of systems at this time due to: Lethargy
Physical Exam
-
General: No Apparent Distress
Eyes: PERRLA
HEENT: Normocephalic and Atraumatic
GI: Non-distended
Extremities: No Clubbing, No Cyanosis and No Edema
Psych: Unable to Assess
Extended Neurological Exam
Mood & Affect: Unable to Assess
Attention Span & Concentration: Lethargic and Closes Eyes after Stimulation (opens eyes to pain, not following commands currently)
Memory: Unable to Assess
Tremor: Hand Tremor Absent and Head Tremor Absent
Involuntary Movement: None
Speech: Moderately Reduced Output and Dysarthric
Cranial Nerve II: Left Eye: Pupillary Reactivity Unremarkable, Pupillary Size Unremarkable and Unable to Assess Visual Cole
Cranial Nerve II: Right Eye: Pupillary Reactivity Unremarkable, Pupillary Size Unremarkable and Unable to Assess Visual Cole
Cranial Nerves III, IV, : Extraocular Movement: Unable to Assess (gaze is midline)
Cranial Nerve V: Facial Sensation: Unable to Assess
Cranial Nerve VII: Facial Symmetry: Reduced (left facial drooping)
Cranial Nerve VIII: Hearing: Unable to Assess
Cranial Nerves IX, X: Palate Movement: Unable to Assess
Cranial Nerve XI: Shoulder Shrug: Unable to Assess
Cranial Nerve XII: Tongue Protusion: Unable to Assess
Muscle Strength, Overall: Reduced on Left (LUE withdraws to pain, LLE withdraws to pain)
Muscle Bulk & Tone: Bulk Unremarkable and Reduced Tone (LUE)
Pronator Drift: Unable to Assess
Deep Tendon Reflexes: Unremarkable Throughout
Cold Sensation: Unable to Assess
Vibration Sensation: Unable to Assess
Touch Sensation: Unable to Assess
Coordination: Unable to Assess
Babinski Sign: Absent Bilaterally
Modified Anshul Score (MRS)
-
Modified Anshul Scale (mRS): Severe disability. Requires constant nursing care.
Score: 5
Data Reviewed
-
CT-A: Report Reviewed and Image Reviewed
CT-Perfusion: Report Reviewed and Image Reviewed
CT Head: Report Reviewed and Image Reviewed
MRI Head: Report Reviewed and Image Reviewed
Echocardiogram: Report Reviewed
EEG: Report Reviewed
Labs: Report Reviewed
Lipid Profile: Report Reviewed
HgbA1C: Report Reviewed
Reviewed with: Physician, Patient and Family
Medications
-
Active Medications
Generic Name Dose Route Start Last Admin
Trade Name Freq PRN Reason Stop Dose Admin
Acetaminophen 650 mg 05/02/24 00:45 05/04/24 10:40
Acetaminophen 650 Mg Rectal Suppository RECTAL 05/30/24 00:44 650 mg
Q4HPRN PRN Administration
HARRIS, mild pain, or temp >100.4F
Acetaminophen 650 mg 05/02/24 00:45 05/02/24 21:47
Acetaminophen 325 Mg Tablet PO 05/30/24 00:44 650 mg
Q4HPRN PRN Administration
HARRIS, mild pain, or temp >100.4F
Aspirin 81 mg 05/02/24 10:00 05/05/24 07:49
Aspirin 81 Mg Chewable Tablet PO 05/30/24 09:59 Not Given
DAILY HO
Atorvastatin Calcium 80 mg 05/02/24 18:00 05/04/24 19:22
Atorvastatin (Lipitor) 80 Mg Tablet PO 05/30/24 17:59 Not Given
QPM HO
Clopidogrel Bisulfate 75 mg 05/02/24 08:00 05/05/24 07:49
Clopidogrel 75 Mg Tablet PO 05/30/24 07:59 Not Given
DAILY HO
Dextrose 12.5 grams 05/02/24 00:45
Dextrose 50% (0.5 Grams/Ml) 50 Ml Syringe IV 05/30/24 00:44
[id number] PRN
hypoglycemia
Protocol
Glucagon 1 mg 05/02/24 00:45
Glucagon 1 Mg Vial IM 05/30/24 00:44
PRN PRN
hypoglycemia
Protocol
Sodium Chloride 1,000 mls @ 75 mls/hr 05/04/24 11:15 05/05/24 02:22
Nss IV 1,000 mls
[id number] HO Administration
Insulin Aspart 0 units 05/05/24 00:00 05/05/24 12:29
Insulin Aspart Moderate Resistance 300 Units/3 Ml Pen.Injctr SC 06/02/24 00:00 1 units
Q6 HO Administration
Protocol
Levetiracetam 500 mg 05/04/24 14:00 05/05/24 02:19
Levetiracetam (100 Mg/Ml) 500 Mg/5 Ml Vial IV 06/01/24 13:59 500 mg
Q12H HO Administration
Lisinopril 5 mg 05/03/24 11:00 05/05/24 07:49
Lisinopril 5 Mg Tablet PO 05/31/24 10:59 Not Given
DAILY HO
Metoprolol Succinate 25 mg 05/04/24 08:00 05/05/24 07:49
Metoprolol 25 Mg Extended Release Tablet PO 06/01/24 07:59 Not Given
DAILY HO
Pantoprazole Sodium 20 mg 05/02/24 15:00 05/05/24 07:49
Pantoprazole 20 Mg Delayed Release Tablet PO 05/30/24 14:59 Not Given
DAILY HO
Pioglitazone HCl 15 mg 05/03/24 11:00 05/04/24 11:28
Pioglitazone Hcl 15 Mg Tablet PO 05/31/24 10:59 Not Given
DAILY HO
Sodium Chloride 0 flush 05/01/24 23:00
Sodium Chloride 0.9% (Flush) Syringe IV 05/29/24 22:59
PER PROTOCOL HO
Home Medications
�Medication �Instructions �Recorded
furosemide 20 mg tablet (Lasix) 20 mg PO DAILY 05/01/24
pioglitazone 15 mg tablet (Actos) 15 mg PO DAILY 05/01/24
rosuvastatin 40 mg tablet (Crestor) 40 mg PO DAILY 05/01/24
NIH Stroke Score
Subsequent NIH Scale
Date of Subsequent NIH Scale: 05/05/24
Time of Subsequent NIH Scale: 11:15
NIH Stroke Score
Level of Consciousness: 1 - Arousable
LOC Questions: 2-Neither correct
LOC Commands: 2-Performs neither correctly
Best Horizontal Gaze: 0-Normal
Visual Cole: 0=Normal, no visual loss
Facial Palsy: 2=Partial paralysis
Motor - Right Arm: UN=Amputation/jointfusion
Motor - Left Arm: 4=No movement
Motor - Right Leg: UN-Amputation/jointfusion
Motor - Left Le-No movement
Limb Ataxia: UN-Amputation/jointfusion
Sensation: 0-Normal
Best Language: 1-Mild aphasia
Dysarthria: 1-Mild slurring
Extinction and Inattention: 1-Sensory inattention
Total Score:: 18
Modified Kirklin (mRS) Score
Modified Kirklin Scale (mRS): Severe disability. Requires constant nursing care.
Score: 5
Alteplase Contraindication
Inclusion and Exclusion criteria reviewed: Yes

Documented by User: Quinn Stover MD 05/05/24 16:10
Today's Communication / Plan
-
63-year-old male who was admitted [facility] on 05/01/24 with sudden confusion, aphasia, and left sided hemiparesis. He was outside of the time window for IV TNK/IAT.
05/04/24 AMS, patient obtunded. Febrile to 101.2 and exam concerning for seizure. Patient placed on Keppra 500 mg twice daily with improvement of cognition..
PLAN: Continue aspirin
Continue Keppra 500 twice daily
Speech therapy
Will need SNF placement
Modified Kirklin Score (MRS)
-
Score: 5
NIH Stroke Score
NIH Stroke Score
Total Score:: 18
Modified Kirklin (mRS) Score
Score: 5
--- NOTE | 2024-05-05 14:29 | EEG.RPT ---
Electroencephalogram Report
Recording
Date of EE05/05/24
Type of EEG: Routine
Length of EEG recordin mins
Done with Video Recording: Yes
Patient Status: Inpatient
Recording Conditions: Confused
Hyperventilation Performed: No
Photic Stimulation Performed: Yes
Report
METHODS
A 21 channel digitized electroencephalogram was performed at [facility]. The 10/20 international system of electrode placement was used. In addition to EEG, the patient was monitored for EKG. The duration of the recording was 26 minutes.
BACKGROUND
The background consisted of diffuse lowing to ~7Hz frequencies. The study was limited frequently by movement artifact and artifact from the patient attempting to remove leads.
PHOTIC STIMULATION
Photic stimulation using a step-moore increase in photic frequency varying from 1-31 Hertz resulted in no driving responses but no appearance of abnormal activity.
CLINICAL EVENTS
The patient did not follow any commands during the study.
INTERPRETATION AND CLINICAL CORRELATION
This EEG is abnormal due to the presence of diffuse lowing to ~7Hz frequencies consistent with mild diffuse cerebral dysfunction, nonspecific in etiology.. The study was limited frequently by movement artifact and artifact from the patient
attempting to remove leads. From what was visible beneath the frequent artifact, no clear seizures were seen.
--- NOTE | 2024-05-05 16:26 | W.PN.HOSP.TC ---
Today's Communication/Plan
-
With large CVA, possibly subclinical seizure neurologic status remains tenuous
Continue DAPT.
Continue statin
Continue Keppra
Monitor closely for neurologic recovery
Diet adjusted with aspiration precautions
Discussed with nursing, neurology, patient's mother at the bedside.
Assessment / Plan
Assessment / Plan
Impression:
Acute right REMI territory infarct with left hemiparesis.
Fever
History of multiple CVA
Essential hypertension
NIDDM.
Asperger syndrome reported
Plan:
Right REMI territory infarct.
MRI of the brain:
1. LARGE 8.6 cm ACUTE ISCHEMIC INFARCT in the ANTEROMEDIAL RIGHT FRONTAL LOBE (right anterior cerebral artery territory) containing severe cytotoxic edema.
2. Multiple small chronic infarcts in the white matter of both frontal lobes.
3. Small chronic lacunar infarcts in the basal ganglia.
4. Severe white matter leukoaraiosis in the frontal and parietal lobes.
5. Mild Wallerian degeneration in the right side of the midbrain and lisa.
6. Moderate diffuse cerebral and cerebellar volume loss.
CTA
There is absent flow/occlusion in the right anterior cerebral artery beyond the A2 segment of the right anterior cerebral artery with absent flow in the proximal portions of the right callosal marginal and pericallosal arteries with cross filling of
distal pericallosal branches
Risk factors dyslipidemia/LDL 147
Diabetes
ECG NSR/sinus tach. No known history of arrhythmias.
Echocardiogram with preserved ventricular function and no evidence for cardioembolic source
Found not to be a candidate for thrombolytics given unknown time of onset of symptoms/duration.
Initiated on dual antiplatelet therapy: Aspirin�Plavix. For 21 days with aspirin on day 22.
Statin.
Concern for subclinical seizures given persistent lethargy
Repeated EEG with no epileptic activity.
Initiated on Keppra 500 mg IV every 12 hours on 05/04 by neurology
Continue to monitor mental status closely
Aspiration risk.
Speech evaluation daily.
Aspiration precautions
Initiated on modified diet.
New onset of fever 05/03 - 05/04.
Lethargic.
Concern for evolving infection/sepsis: At risk for aspiration, UTI
Sepsis workup with negative
Initiated empiric antibiotics discontinued on 05/05
Keep n.p.o. while awaiting oral medications with caution.
Essential hypertension
Adjust antihypertensive regimen with increased dose of Toprol and addition of lisinopril.
Type 2 diabetes
Hemoglobin A1c 8.9
Given persistent neurologic deficiencies hold Actos
Continue basal bolus protocol
Anticipated Discharge: > 48 hours
Subjective/Interval History
-
Date of Service: May 05, 2024
Objective Data
-
Labs:
Laboratory Results
05/05/24
06:39
WBC 7.9
Hgb 15.3
Hct 45.3
Plt Count 153
Sodium 138
Potassium 4.2
Chloride 101
Carbon Dioxide 21 L
BUN 23 H
Creatinine 1.1
Glucose 190 H
Calcium 8.7
Vital Signs:
Vital Signs
Temp Pulse Resp BP Pulse Ox
97.8 F 64 18 143/68 97
05/05/24 16:04 05/05/24 16:04 05/05/24 16:04 05/05/24 16:04 05/05/24 16:04
I&O
05/04/24 05/05/24 05/06/24
06:59 06:59 06:59
Intake Total 1140 / 1140
Output Total 125 / 125
Balance -125 / -125 1140 / 1140
Physical Exam
-
General: Well Developed and No Apparent Distress
HEENT: Normocephalic, Atraumatic and Moist Mucous Membranes
Respiratory: Clear to Auscultation
Cardiac: Regular Rhythm and S1/S2; Negative Murmur, Rub or Gallop
GI: Soft, Nontender, Nondistended and Normal Bowel Sounds; Negative Organomegaly
Rectal: Deferred by Provider
Musculoskeletal: No Clubbing, No Cyanosis and No Edema
Skin: Negative Rash
Neuro: Other (Lethargic with intermittent response to voice and simple commands. Left neglect. Left upper extremity weakness.)
[2024-05-05] MEDS: LIPITOR 80 MG PO (17:09)
[2024-05-05 17:15] LABS: Glucose - Point of Care 166 mg/dl (70-99)
[2024-05-06] VITALS (8 sets, daily range): BP systolic 137–167; BP diastolic 73–90; PULSE 70
[2024-05-06 00:18] LABS: Glucose - Point of Care 156 mg/dl (70-99)
[2024-05-06] MEDS: NOVOLOG FLEXPEN-MODERATE RESISTANCE 1 UNITS SC ×2 (00:20→05:48)
[2024-05-06] MEDS: KEPPRA 500 MG IV ×2 (02:47→13:26)
[2024-05-06 05:49] LABS: Glucose - Point of Care 182 mg/dl (70-99)
[2024-05-06] MEDS: TOPROL XL 25 MG PO (07:54)
[2024-05-06] MEDS: LOW STRENGTH ASPIRIN 81 MG PO (07:54)
[2024-05-06] MEDS: ZESTRIL 5 MG PO (07:54)
[2024-05-06] MEDS: PLAVIX 75 MG PO (07:54)
[2024-05-06] MEDS: PROTONIX 20 MG PO (07:54)
--- NOTE | 2024-05-06 08:10 | PTOTSP ---
Speech Language Pathology
Pt seen for speech/language tx. Poor initiation noted, but improved visual tracking noted, especially to L. No attempts at vocalizations/verbalizations noted during session. When asked pt if he was trying to talk, he utilized hand gesture for
'sort of.' Unsure if related to a severe verbal apraxia, behavioral, or combination. Pt followed 1-step commands with arm/leg, but did not follow any oral motor commands. Question oral motor apraxia. He was able to write name, although extremely
small and difficult to see. When asked to write how he felt, he wrote 'ok feelll.' Able to appropriately utilize low-tech picture communication board and letter board. 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 Left clipboard bedside with low-tech picture communication boards, paper, and pen.
Pt also seen for dysphagia tx. Trialed puree and moderately thick liquids via tsp/cup. Intermittently orally holding thickened liquids. When this was noted, empty spoon to lips was effective. When swallow initiated, no oral residue noted. No
overt signs of aspiration. Unable to rule out silent aspiration bedside.
Recommend:
(1) VSE given improved alertness
(2) Continue IDDSI Level 4 (Puree) and Moderately Thick Liquids via tsp/cup as tolerated pending VSE
(3) Meds crushed in puree as tolerated
(4) Consider Aspiration Risk Hydration Protocol (ARHP) pending VSE
(5) Communicate with pt via simple yes/no question and simple commands. Have pt communicate via communication boards and writing if not verbalizing
(6) EMERGENCY ROOM PHYSICIAN ASSISTANT to continue to follow
--- NOTE | 2024-05-06 10:19 | W.PN.NEURO.1 ---
Documented by User: Claudette Rod NP 05/06/24 13:45
Today's Communication / Plan
-
.
Neuro Assessment/Plan
Assessment
This is a 63-year-old male who presented to on 05/01/24 with report of confusion, aphasia, and left sided hemiparesis. He was outside of the time window for TNK/IAT.
05/04/24 AMS, patient obtunded. Febrile to 101.2 and exam concerning for seizure. Keppra initiated.
-CTA head/neck 05/01/24: There is absent flow/occlusion in the right anterior cerebral artery beyond the A2 segment of the right anterior cerebral artery with absent flow in the proximal portions of the right callosal marginal and pericallosal
arteries with cross filling of distal pericallosal branches.
-MRI brain 05/02/24: LARGE 8.6 cm ACUTE ISCHEMIC INFARCT in the ANTEROMEDIAL RIGHT FRONTAL LOBE (right anterior cerebral artery territory) containing severe cytotoxic edema. Multiple small chronic infarcts in the white matter of both frontal lobes.
Small chronic lacunar infarcts in the basal ganglia. Severe white matter leukoaraiosis in the frontal and parietal lobes. Mild Wallerian degeneration in the right side of the midbrain and lisa. Moderate diffuse cerebral and cerebellar volume loss.
-EEG 05/05/24: This EEG is abnormal due to the presence of diffuse lowing to ~7Hz frequencies consistent with mild diffuse cerebral dysfunction, nonspecific in etiology.. The study was limited frequently by movement artifact and artifact from the
patient attempting to remove leads. From what was visible beneath the frequent artifact, no clear seizures were seen.
I. Large R REMI territory ischemic infarct in the setting of R A2 REMI occlusion. Etiology possibly cardioembolic.
II. Likely seizure and fever of unknown origin in the setting of large ischemic infarct producing change in mental status over the past few days, now improving.
III. Multiple old chronic infarcts.
IV. NIDDM.
V. HLD
. HTN
Plan
-Continue Keppra 500mg IV q12hrs.
-Continue DAPT with aspirin 81mg daily and Plavix 75mg daily for 21 days. After 21 days, stop Plavix and continue aspirin 81mg daily only, indefinitely.
-Goal normotension.
-Goal normothermia.
-Monitor on telemetry, consider outpatient Holter monitoring.
-LDL goal <70. LDL is 147. Continue atorvastatin 80mg daily.
-Goal normoglycemia, hbA1c is 8.9.
-NIHSS and neurological checks per unit guidelines.
-Patient provided with a stroke education packet.
-PT/OT/ST evaluations.
-DVT prophylaxis.
-Patient should follow-up with Neurology in 4-6 weeks, may see the BEAUTY CULTURIST or one of the physicians.
Subjective/Objective
Subjective Data
Date of Service: May 06, 2024
No acute events overnight. Patient is very alert today. Currently he is not speaking but he is communicating well using a communication board. He denies any headache, dizziness, vision changes, swallowing difficulty, numbness, chest pain,
palpitations, and shortness of breath.
Objective Data
Vital Signs
Temp Pulse Resp BP Pulse Ox
98.0 F 65 18 159/83 97
05/06/24 07:00 05/06/24 07:00 05/06/24 07:00 05/06/24 07:00 05/06/24 07:00
Lab Results
05/05/24 06:39
05/05/24 06:39
PT 12.5 Sec (11.4-14.6) 05/01/24 21:36
INR 0.96 05/01/24 21:36
APTT 25.0 Sec (23.4-35.0) 05/01/24 21:36
Sodium 138 mmol/L (135-145) 05/05/24 06:39
Potassium 4.2 mmol/L (3.5-5.1) 05/05/24 06:39
BUN 23 mg/dl (9-20) H 05/05/24 06:39
Glucose 190 mg/dl (70-99) H 05/05/24 06:39
Calcium 8.7 mg/dl (8.4-10.2) 05/05/24 06:39
LDL Cholesterol Direct 147 mg/dl 05/02/24 05:32
LDL Cholesterol, Calc mg/dl 05/02/24 05:32
Patient Allergies
Penicillins Allergy (Verified 05/01/24 21:59)
Unknown
LDL Level: >70, statin ordered
Review of Systems
-
Unable to obtain full review of systems at this time due to: Aphasia
History Source: Patient
EENT: Negative Blurry Vision, Decreased Vision or Swallowing Difficulty
Respiratory: Negative Cough or Trouble Breathing
Cardiac: Negative Chest Pain or Palpitations
Abdomen/GI: Negative Nausea
Neuro: Weakness and Speech Problem; Negative Dizzy, Headache, Numbness, Ataxia or Tremors
Physical Exam
-
General: Well Developed, Well Nourished and No Apparent Distress
Eyes: No Ptosis and PERRLA
HEENT: Normocephalic and Atraumatic
Neck: Full Range of Motion
GI: Non-distended
Extremities: No Clubbing, No Cyanosis and No Edema
Extended Neurological Exam
Mood & Affect: Unable to Assess
Attention Span & Concentration: Awake, Alert and Interactive
Memory: Unremarkable (AAOx3 using communication board)
Tremor: Hand Tremor Absent and Head Tremor Absent
Involuntary Movement: None
Speech: Mute
Cranial Nerve II: Left Eye: Pupillary Reactivity Unremarkable, Pupillary Size Unremarkable and Unable to Assess Visual Cole
Cranial Nerve II: Right Eye: Pupillary Reactivity Unremarkable, Pupillary Size Unremarkable and Unable to Assess Visual Cole
Cranial Nerves III, IV, : Extraocular Movement: Extraocular Movement Full in all Directions
Cranial Nerve V: Facial Sensation: Unable to Assess
Cranial Nerve VII: Facial Symmetry: Reduced (left facial drooping)
Cranial Nerve VIII: Hearing: Unremarkable Hearing to Normal Conversational Volume
Cranial Nerves IX, X: Palate Movement: Unable to Assess
Cranial Nerve XI: Shoulder Shrug: Reduced on Left
Cranial Nerve XII: Tongue Protusion: Unable to Assess
Muscle Strength, Overall: Reduced on Left (LUE TF to pain, LLE withdraws to pain. )
Muscle Bulk & Tone: Reduced Tone (LUE)
Pronator Drift: Unable to Assess
Touch Sensation: Unable to Assess
Coordination: Unable to Assess
Babinski Sign: Absent Bilaterally
Gait & Station: Unable to Assess
Modified Sanborn Score (MRS)
-
Modified Sanborn Scale (mRS): Severe disability. Requires constant nursing care.
Score: 5
Data Reviewed
-
CT-A: Report Reviewed and Image Reviewed
CT-Perfusion: Report Reviewed and Image Reviewed
CT Head: Report Reviewed and Image Reviewed
MRI Head: Report Reviewed and Image Reviewed
Echocardiogram: Report Reviewed
EEG: Report Reviewed
Labs: Report Reviewed
Lipid Profile: Report Reviewed
HgbA1C: Report Reviewed
Reviewed with: Physician, Patient and Family

Documented by User: Quinn Stover MD 05/06/24 16:15
Today's Communication / Plan
-
63-year-old male who presented to on 05/01/24 with report of confusion, aphasia, and left sided hemiparesis, who improved initially followed by brief period of clinical decline 05/04/24 AMS,and exam concerning for seizure who recovered with. Keppra
On Keppra maintenance.
.
Modified Sanborn Score (MRS)
-
Score: 5
--- NOTE | 2024-05-06 10:22 | CM ---
Addendum entered by Jen Barrientos 05/06/24 14:42:
Additional skilled rehab list provided to patients sister and mother.
Addendum entered by Jen Barrientos 05/06/24 12:33:
Spoke with Marlene from [facility] [phone] she would like updated PT/OT/ST notes sent via [employer] today or tomorrow to show progress.
They will review with their MDR.
Will need a [facility] auth.
If accepted will need NPI#s
Marelne will be off for a month, but her vm will have the covering liaison.
Original Note:
Spoke with family bedside.
Sister Merrill is working on POA, trademark attorney to come to hospital today.
Patient more alert.
Merrill is also working on patient getting SS and disability.
Sister would like patient reeval for Acute Rehab because he is now more alert.
CM did review therapy recommendations and referrals placed for [facility] rehab and [facility].
Referrals also placed to [facility] facilities.
Plan: rehab once medically appropriate.
--- NOTE | 2024-05-06 11:36 | PTOTSP ---
Addendum entered and electronically signed by ST Marycruz 05/06/24 11:41:
5. Strategies: upright to 90 degrees, full supervision with assist as needed, slow rate, ensure oral cavity clear post P.O. intake with oral suctioning
Original Note:
Video Swallow Study
Summary: Patient with moderate oral stage changes (i.e., prolonged but functional mastication, prolonged oral holding, prolonged A-P transfers with lingual pumping, segmented transfers, but only trace oral residue) and WFL-mild pharyngeal stage of
swallowing. No penetration/aspiration occurred. Esophageal sweep unremarkable.
PO intake may be limited by oral stage changes/prolonged oral holding. Dietitian consulted. Continue pureed diet. Consider advancing to thin liquids as outlined below. Monitor clinical tolerance closely and discontinue if patient with decline in
mental status and/or respiratory status.
Recommendations:
1. IDDSI Level 4 Puree, IDDSI Level 0 Thin Liquids
2. Medications crushed in puree if medically cleared
3. Oral care 3x daily
4. Dysphagia therapy and speech therapy at the acute care level and after D/C from acute care.
[2024-05-06 12:17] LABS: Glucose - Point of Care 238 mg/dl (70-99)
[2024-05-06] MEDS: NOVOLOG FLEXPEN-MODERATE RESISTANCE 3 UNITS SC (12:50)
--- NOTE | 2024-05-06 15:38 | W.PN.HOSP.TC ---
Today's Communication/Plan
-
Mentation improved
Remains with dense left-sided paresis.
Repeated VSE cleared for modified diet.
Continue IV Keppra with transition to oral if stable oral intake over the next 24 hours.
Physical therapy evaluation.
Asking physiatry to come back and consider acute rehab.
Discussed with nursing.
Discussed with family members at the bedside.
Assessment / Plan
Assessment / Plan
Impression:
Acute right REMI territory infarct with left hemiparesis.
Fever
History of multiple CVA
Essential hypertension
NIDDM.
Asperger syndrome reported
Plan:
Right REMI territory infarct.
MRI of the brain:
1. LARGE 8.6 cm ACUTE ISCHEMIC INFARCT in the ANTEROMEDIAL RIGHT FRONTAL LOBE (right anterior cerebral artery territory) containing severe cytotoxic edema.
2. Multiple small chronic infarcts in the white matter of both frontal lobes.
3. Small chronic lacunar infarcts in the basal ganglia.
4. Severe white matter leukoaraiosis in the frontal and parietal lobes.
5. Mild Wallerian degeneration in the right side of the midbrain and lisa.
6. Moderate diffuse cerebral and cerebellar volume loss.
CTA
There is absent flow/occlusion in the right anterior cerebral artery beyond the A2 segment of the right anterior cerebral artery with absent flow in the proximal portions of the right callosal marginal and pericallosal arteries with cross filling of
distal pericallosal branches
Risk factors dyslipidemia/LDL 147
Diabetes
ECG NSR/sinus tach. No known history of arrhythmias.
Echocardiogram with preserved ventricular function and no evidence for cardioembolic source
Found not to be a candidate for thrombolytics given unknown time of onset of symptoms/duration.
Initiated on dual antiplatelet therapy: Aspirin�Plavix. For 21 days with aspirin on day 22.
Statin.
Concern for subclinical seizures given persistent lethargy
Repeated EEG with no epileptic activity.
Initiated on Keppra 500 mg IV every 12 hours on 05/04 by neurology
Continue to monitor mental status closely
Aspiration risk.
Speech evaluation daily including VSE on 05/06
Aspiration precautions
Initiated on modified diet.
New onset of fever 05/03 - 05/04.
Lethargic.
Concern for evolving infection/sepsis: At risk for aspiration, UTI
Sepsis workup with negative
Initiated empiric antibiotics discontinued on 05/05
Keep n.p.o. while awaiting oral medications with caution.
Essential hypertension
Adjust antihypertensive regimen with increased dose of Toprol and addition of lisinopril.
Type 2 diabetes
Hemoglobin A1c 8.9
Given persistent neurologic deficiencies hold Actos
Continue basal bolus protocol
Anticipated Discharge: > 48 hours
Subjective/Interval History
-
Date of Service: May 06, 2024
Objective Data
-
Vital Signs:
Vital Signs
Temp Pulse Resp BP Pulse Ox
98.1 F 70 20 167/73 97
05/06/24 11:00 05/06/24 11:00 05/06/24 11:00 05/06/24 11:00 05/06/24 11:00
I&O
05/05/24 05/06/24 05/07/24
06:59 06:59 06:59
Intake Total 1140 / 1140
Balance 1140 / 1140
Physical Exam
-
General: Well Developed and No Apparent Distress
HEENT: Normocephalic, Atraumatic and Moist Mucous Membranes
Respiratory: Clear to Auscultation
Cardiac: Regular Rhythm and S1/S2; Negative Murmur, Rub or Gallop
GI: Soft, Nontender, Nondistended and Normal Bowel Sounds; Negative Organomegaly
Rectal: Deferred by Provider
Musculoskeletal: No Clubbing, No Cyanosis and No Edema
Skin: Negative Rash
Neuro: Awake, Alert, Oriented and Other (Left upper extremity weakness)
[2024-05-06 16:15] LABS: Glucose - Point of Care 290 mg/dl (70-99)
[2024-05-06] MEDS: NOVOLOG FLEXPEN-MODERATE RESISTANCE 5 UNITS SC (16:35)
[2024-05-06] MEDS: LIPITOR PO (17:50)
[2024-05-06 21:21] LABS: Glucose - Point of Care 231 mg/dl (70-99)
[2024-05-07] VITALS (8 sets, daily range): BP systolic 104–159; BP diastolic 72–98; PULSE 73; O2SAT 96
[2024-05-07] MEDS: KEPPRA 500 MG IV ×2 (01:57→13:19)
[2024-05-07 08:00] LABS: Glucose - Point of Care 192 mg/dl (70-99)
[2024-05-07] MEDS: ZESTRIL 5 MG PO (09:00)
[2024-05-07] MEDS: TOPROL XL 25 MG PO (09:00)
[2024-05-07] MEDS: PLAVIX 75 MG PO (09:00)
[2024-05-07] MEDS: LOW STRENGTH ASPIRIN 81 MG PO (09:00)
[2024-05-07] MEDS: PROTONIX 20 MG PO (09:00)
[2024-05-07] MEDS: NOVOLOG FLEXPEN-MODERATE RESISTANCE 1 UNITS SC ×2 (09:02→17:21)
[2024-05-07 11:39] LABS: Glucose - Point of Care 328 mg/dl (70-99)
[2024-05-07] MEDS: NOVOLOG FLEXPEN-MODERATE RESISTANCE 7 UNITS SC (11:44)
--- NOTE | 2024-05-07 12:31 | W.PN.HOSP.TC ---
Today's Communication/Plan
-
Planning for SNF
Neurochecks
Continue DAPT and high intensity statin
Assessment / Plan
Assessment / Plan
#Acute right REMI infarct C/B left hemiparesis
#H/O multiple lacunar and cerebral CVA
-Suspected cerebrovascular etiology with multiple previous infarcts; no arrhythmia history, low suspicion for cardioembolic
-CTA showed absent flow to the right REMI distal to A2; MRI confirmed acute stroke with severe cytotoxic edema
-Metabolic risk factors including T2DM, dyslipidemia that are poorly controlled
-Was started on to dual antiplatelet therapy for 21 days, high intensity
-Remains on neurochecks, difficult to assess due to his Asperger's and communication issues
Plan
-Continue DAPT for 21 days; start MAPT on 05/24/24
-Continue with high intensity statin, consider Zetia as well in future
-Will need risk factor modification with improved control of diabetes, HLD
-Continue with neurochecks every shift
#Subclinical seizure concern
-Has persistent lethargy, compounded by poor communication skills from Asperger's
-Currently on Keppra 500 mg twice daily IV empirically, ordered by neurology on 05/04
-Monitor clinically with neurochecks, neurology following
#Aspiration risk
-Currently on pur�ed diet with aspiration precautions
#New onset fever on 05/03 through 04/24
-Infectious workup was negative, possibly secondary to CVA
-Status post empiric antibiotic course
#Essential hypertension
-Currently on regimen consisting of Toprol and lisinopril
-Suspect this is contributing to his chronic cerebrovascular disease
-Will monitor closely and adjust regimen
#Type 2 diabetes mellitus
-A1c 8.9%, C/B macrovascular disease/ASCVD, no known microvascular disease states though likely present
-Currently on ISS with Accu-Cheks; holding pioglitazone due to neurological status
-Continue with Accu-Cheks, glucose goal <200, avoid hypoglycemia
DVT prophylaxis: SCDs
Diet: Pur�ed
CODE STATUS: Full code
Disposition: Acute inpatient rehab per PT, will consult today
Anticipated Discharge: 24 - 48 hours
Subjective/Interval History
-
Date of Service: May 07, 2024
Seen and examined at bedside. No acute events overnight. AFVSS this morning. Remains minimally responsive though arousable
On exam he has flaccid paresis of the left upper extremity, as well as left lower extremity. Babinski upgoing on the left
History limited by baseline mental status as well as effects of CVA, possible seizure event
Objective Data
-
Vital Signs:
Vital Signs
Temp Pulse Resp BP Pulse Ox
98.9 F 81 16 144/80 97
05/07/24 11:04 05/07/24 11:04 05/07/24 11:04 05/07/24 11:04 05/07/24 11:04
I&O
05/06/24 05/07/24 05/08/24
06:59 06:59 06:59
Intake Total 630 / 630
Balance 630 / 630
Review of Systems
-
Unable to obtain full review of systems at this time due to: Patient Non-verbal
Physical Exam
-
General: Well Nourished, No Apparent Distress, Comfortable and Other (Arousable, not engaging in conversation)
HEENT: Normocephalic, Atraumatic and Moist Mucous Membranes
Respiratory: Clear to Auscultation and Non Labored Respirations
Cardiac: Regular Rhythm and S1/S2; Negative Murmur, Rub or Gallop
GI: Soft, Nontender, Nondistended and Normal Bowel Sounds
Musculoskeletal: No Clubbing, No Cyanosis and No Edema
Skin: Warm and Dry; Negative Rash
Neuro: Other (Lethargic, unable to assess cranial nerves though PERRLA. Flaccid paralysis of left upper and lower extremity. Upgoing Babinski on the left)
--- NOTE | 2024-05-07 14:02 | CM ---
Addendum entered by Maritza Espinosa 05/07/24 15:03:
CM met with patients sister, discussed plan for SNF with transition to LTC. Merrill requesting referrals to [facility], [facility], [facility], [facility], and [facility]. Referrals placed in [facility].
Plan; SNF pending accepting facility.
Original Note:
Patient asleep, met with mother, Beatriz, bedside. CM discussed [facility] declining patient. CM discussed PMR consult from earlier in the week recommending SNF. Patient mother reports her daughter, Merrill, has been the main contact and she
will be in the hospital in about an hour. CM will return to discuss with family.
Plan; acute vs SNF
[2024-05-07 16:45] LABS: Glucose - Point of Care 188 mg/dl (70-99)
[2024-05-07] MEDS: LIPITOR PO (17:31)
[2024-05-07 21:26] LABS: Glucose - Point of Care 174 mg/dl (70-99)
[2024-05-08] VITALS (8 sets, daily range): BP systolic 114–153; BP diastolic 70–89; PULSE 64; O2SAT 97
[2024-05-08] MEDS: KEPPRA 500 MG IV ×2 (01:00→13:19)
[2024-05-08] MEDS: PLAVIX 75 MG PO (07:23)
[2024-05-08] MEDS: PROTONIX 20 MG PO (07:23)
[2024-05-08] MEDS: LOW STRENGTH ASPIRIN 81 MG PO (07:23)
[2024-05-08] MEDS: TOPROL XL 25 MG PO (07:23)
[2024-05-08] MEDS: ZESTRIL 5 MG PO (07:23)
[2024-05-08] MEDS: NOVOLOG FLEXPEN-MODERATE RESISTANCE 1 UNITS SC ×2 (07:25→18:20)
[2024-05-08 07:59] LABS: Glucose - Point of Care 158 mg/dl (70-99)
--- NOTE | 2024-05-08 10:43 | W.PN.HOSP.TC ---
Today's Communication/Plan
-
Continue with DAPT and statin
Evaluation by physiatry if awake and responding enough
Assessment / Plan
Assessment / Plan
#Acute right REMI infarct C/B left hemiparesis
#H/O multiple lacunar and cerebral CVA
-Suspected cerebrovascular etiology with multiple previous infarcts; no arrhythmia history, low suspicion for cardioembolic
-CTA showed absent flow to the right REMI distal to A2; MRI confirmed acute stroke with severe cytotoxic edema
-Metabolic risk factors including T2DM, dyslipidemia that are poorly controlled
-Was started on to dual antiplatelet therapy for 21 days, high intensity
-Remains on neurochecks, difficult to assess due to his Asperger's and communication issues
Plan
-Continue DAPT for 21 days; start MAPT on 05/24/24
-Continue with high intensity statin, consider Zetia as well in future
-Will need risk factor modification with improved control of diabetes, HLD
-Continue with neurochecks every shift
#Subclinical seizure concern
-Has persistent lethargy, compounded by poor communication skills from Asperger's
-Currently on Keppra 500 mg twice daily IV empirically, ordered by neurology on 05/04
-Monitor clinically with neurochecks, neurology following
#Aspiration risk
-Currently on pur�ed diet with aspiration precautions
#New onset fever on 05/03 through 04/24
-Infectious workup was negative, possibly secondary to CVA
-Status post empiric antibiotic course
#Essential hypertension
-Currently on regimen consisting of Toprol and lisinopril
-Suspect this is contributing to his chronic cerebrovascular disease
-Will monitor closely and adjust regimen
#Type 2 diabetes mellitus
-A1c 8.9%, C/B macrovascular disease/ASCVD, no known microvascular disease states though likely present
-Currently on ISS with Accu-Cheks; holding pioglitazone due to neurological status
-Continue with Accu-Cheks, glucose goal <200, avoid hypoglycemia
DVT prophylaxis: SCDs
Diet: Pur�ed
CODE STATUS: Full code
Disposition: SNF versus acute inpatient rehab
Anticipated Discharge: Within 24 hours
Subjective/Interval History
-
Date of Service: May 08, 2024
Seen and examined at the bedside. No acute events overnight. AFVSS this morning.
He states that he feels okay, not in pain currently. Will aim to have evaluation by physiatry when more awake
History limited by his communication deficit
Objective Data
-
Vital Signs:
Vital Signs
Temp Pulse Resp BP Pulse Ox
97.7 F 69 16 148/89 96
05/08/24 07:00 05/08/24 07:00 05/08/24 07:00 05/08/24 07:00 05/08/24 07:00
I&O
05/07/24 05/08/24 05/09/24
06:59 06:59 06:59
Intake Total 630 / 630 120 / 120
Balance 630 / 630 120 / 120
Review of Systems
-
Unable to obtain full review of systems at this time due to: Patient Non-verbal
Physical Exam
-
General: Well Nourished, No Apparent Distress and Comfortable
HEENT: Normocephalic, Atraumatic and Moist Mucous Membranes
Respiratory: Clear to Auscultation and Non Labored Respirations; Negative Wheezes, Rales or Rhonchi
Cardiac: Regular Rhythm and S1/S2; Negative Murmur, Rub or Gallop
GI: Soft, Nontender, Nondistended and Normal Bowel Sounds
Musculoskeletal: No Clubbing, No Cyanosis and No Edema
Skin: Warm and Dry; Negative Rash
Neuro: AO x 3, Central Nerve's Intact and Other (Flaccid paralysis to the left extremities, upgoing Babinski on left)
Psych: Calm
[2024-05-08 12:00] LABS: Glucose - Point of Care 357 mg/dl (70-99)
[2024-05-08] MEDS: NOVOLOG FLEXPEN-MODERATE RESISTANCE 9 UNITS SC (12:43)
[2024-05-08 14:33] LABS: Glucose - Point of Care 216 mg/dl (70-99)
[2024-05-08 17:40] LABS: Glucose - Point of Care 186 mg/dl (70-99)
[2024-05-08] MEDS: LIPITOR 80 MG PO (18:19)
[2024-05-08 21:31] LABS: Glucose - Point of Care 243 mg/dl (70-99)
[2024-05-09] MEDS: KEPPRA 500 MG IV ×2 (01:02→15:06)
[2024-05-09 03:25] VITALS: BP 149/83
[2024-05-09 07:30] VITALS: BP 120/83
[2024-05-09 08:26] LABS: Glucose - Point of Care 189 mg/dl (70-99)
[2024-05-09] MEDS: TOPROL XL 25 MG PO (08:58)
[2024-05-09] MEDS: LOW STRENGTH ASPIRIN 81 MG PO (08:59)
[2024-05-09] MEDS: ZESTRIL 5 MG PO (08:59)
[2024-05-09] MEDS: PROTONIX 20 MG PO (08:59)
[2024-05-09] MEDS: PLAVIX 75 MG PO (09:00)
[2024-05-09] MEDS: NOVOLOG FLEXPEN-MODERATE RESISTANCE 1 UNITS SC (09:03)
[2024-05-09 11:30] VITALS: BP 129/66
[2024-05-09 12:18] LABS: Glucose - Point of Care 223 mg/dl (70-99)
--- NOTE | 2024-05-09 13:35 | CM ---
CM met with patients sisterMerrill, discussed [facility] reviewing patient, awaiting ability to accept. [facility], [facility] in [facility]. CM will continue to follow for all discharge
planning needs.
Plan; SNF once facility found, will need insurance auth.
[2024-05-09] MEDS: NOVOLOG FLEXPEN-MODERATE RESISTANCE 3 UNITS SC (13:53)
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
[2024-05-09 15:30] VITALS: BP 111/67
--- NOTE | 2024-05-09 17:10 | W.PN.HOSP.TC ---
Today's Communication/Plan
-
Continue antiplatelet therapy.
Continue Keppra transitioning to oral.
Continue supportive care
Diet has been advanced with aspiration precautions.
Placement to senior care facility for rehab.
Assessment / Plan
Assessment / Plan
#Acute right REMI infarct C/B left hemiparesis
#H/O multiple lacunar and cerebral CVA
-Suspected cerebrovascular etiology with multiple previous infarcts; no arrhythmia history, low suspicion for cardioembolic
-CTA showed absent flow to the right REMI distal to A2; MRI confirmed acute stroke with severe cytotoxic edema
-Metabolic risk factors including T2DM, dyslipidemia that are poorly controlled
-Was started on to dual antiplatelet therapy for 21 days, high intensity
-Remains on neurochecks, difficult to assess due to his Asperger's and communication issues
Plan
-Continue DAPT for 21 days; start MAPT on 05/24/24
-Continue with high intensity statin, consider Zetia as well in future
-Will need risk factor modification with improved control of diabetes, HLD
-Continue with neurochecks every shift
#Subclinical seizure concern
-Has persistent lethargy, compounded by poor communication skills from Asperger's
-Currently on Keppra 500 mg twice daily IV empirically, ordered by neurology on 05/04
-Monitor clinically with neurochecks, neurology following
#Aspiration risk
-Currently on pur�ed diet with aspiration precautions
#New onset fever on 05/03 through 04/24
-Infectious workup was negative, possibly secondary to CVA
-Status post empiric antibiotic course
#Essential hypertension
-Currently on regimen consisting of Toprol and lisinopril
-Suspect this is contributing to his chronic cerebrovascular disease
-Will monitor closely and adjust regimen
#Type 2 diabetes mellitus
-A1c 8.9%, C/B macrovascular disease/ASCVD, no known microvascular disease states though likely present
-Currently on ISS with Accu-Cheks; holding pioglitazone due to neurological status
-Continue with Accu-Cheks, glucose goal <200, avoid hypoglycemia
DVT prophylaxis: SCDs
Diet: Pur�ed
CODE STATUS: Full code
Disposition: SNF versus acute inpatient rehab
Anticipated Discharge: 24 - 48 hours
Subjective/Interval History
-
Date of Service: May 09, 2024
Objective Data
-
Vital Signs:
Vital Signs
Temp Pulse Resp BP Pulse Ox
98.5 F 67 16 129/66 96
05/09/24 11:30 05/09/24 11:30 05/09/24 11:30 05/09/24 11:30 05/09/24 11:30
I&O
05/08/24 05/09/24 05/10/24
06:59 06:59 06:59
Intake Total 120 / 120 840 / 840
Balance 120 / 120 840 / 840
Physical Exam
-
General: Well Nourished, No Apparent Distress and Comfortable
HEENT: Normocephalic, Atraumatic and Moist Mucous Membranes
Respiratory: Clear to Auscultation and Non Labored Respirations; Negative Wheezes, Rales or Rhonchi
Cardiac: Regular Rhythm and S1/S2; Negative Murmur, Rub or Gallop
GI: Soft, Nontender, Nondistended and Normal Bowel Sounds
Musculoskeletal: No Clubbing, No Cyanosis and No Edema
Skin: Warm and Dry; Negative Rash
Neuro: AO x 3, Central Nerve's Intact and Other (Flaccid paralysis to the left extremities, upgoing Babinski on left)
Psych: Calm
[2024-05-09 17:17] LABS: Glucose - Point of Care 298 mg/dl (70-99)
--- NOTE | 2024-05-09 17:24 | CON.NEURO ---
Neuro Assessment/Plan
Assessment
This is a 63-year-old male who presented to on 05/01/24 with report of confusion, aphasia, and left sided hemiparesis. He was outside of the time window for TNK/IAT.
05/04/24 AMS, patient obtunded. Febrile to 101.2 and exam concerning for seizure. Keppra initiated.
-CTA head/neck 05/01/24: There is absent flow/occlusion in the right anterior cerebral artery beyond the A2 segment of the right anterior cerebral artery with absent flow in the proximal portions of the right callosal marginal and pericallosal
arteries with cross filling of distal pericallosal branches.
-MRI brain 05/02/24: LARGE 8.6 cm ACUTE ISCHEMIC INFARCT in the ANTEROMEDIAL RIGHT FRONTAL LOBE (right anterior cerebral artery territory) containing severe cytotoxic edema. Multiple small chronic infarcts in the white matter of both frontal lobes.
Small chronic lacunar infarcts in the basal ganglia. Severe white matter leukoaraiosis in the frontal and parietal lobes. Mild Wallerian degeneration in the right side of the midbrain and lisa. Moderate diffuse cerebral and cerebellar volume loss.
-EEG 05/05/24: This EEG is abnormal due to the presence of diffuse lowing to ~7Hz frequencies consistent with mild diffuse cerebral dysfunction, nonspecific in etiology.. The study was limited frequently by movement artifact and artifact from the
patient attempting to remove leads. From what was visible beneath the frequent artifact, no clear seizures were seen.
I. Large R REMI territory ischemic infarct in the setting of R A2 REMI occlusion. Etiology possibly cardioembolic.
II. Likely seizure and fever of unknown origin in the setting of large ischemic infarct producing change in mental status over the past few days, now improving.
III. Multiple old chronic infarcts.
IV. NIDDM.
V. HLD
. HTN
Plan
-Continue Keppra 500mg IV q12hrs.
-Continue DAPT with aspirin 81mg daily and Plavix 75mg daily for 21 days. After 21 days, stop Plavix and continue aspirin 81mg daily only, indefinitely.
-Goal normotension.
-Goal normothermia.
-Monitor on telemetry, consider outpatient Holter monitoring.
-LDL goal <70. LDL is 147. Continue atorvastatin 80mg daily.
-Goal normoglycemia, hbA1c is 8.9.
-NIHSS and neurological checks per unit guidelines.
-Patient provided with a stroke education packet.
-PT/OT/ST evaluations.
-DVT prophylaxis.
-Patient should follow-up with Neurology in 4-6 weeks, may see the [employer] VICE PRESIDENT or one of the physicians.
Consultation
Order
Date of Consultation: 05/09/24
Requesting Provider:
Reason for Consult: Stroke
Neurology follow-up note
CC: none
HPI: This is a 63-year-old man who presented to [facility] on May 01, 2024 after he was found encephalopathic by EMS following witnessed driving issues.
Hospital course was complicated by fever. The patient was started in Keppra given worsening of encephalopathy. Routine EEG(05/05/2024) showed diffuse lowing to ~7Hz frequencies.
ER VS: 171/85, 79, afebrile
PDMP:no Rxed meds
Labs:LDL 147, VmP5C-8.9
EKG-NSR
Tele-no reported events to date(the patient is freeqeuncy removes leads)
Brain MRI wo indira(05/02/2024) acute R REMI infarct with edema, multiple chronic periventricular white matter infarcts in the frontal lobes measuring 5 mm in size in the right frontal lobe and 6.4 mm in size in the left frontal lobe. There is a 5.9 mm
chronic infarct in the periventricular right frontal lobe and right basal ganglia. There is a 4.5 mm chronic infarct in the superior right basal ganglia. There is a 6.7 mm chronic lacunar infarct in the left basal ganglia; severe white matter
leukoaraiosis in the frontal and parietal lobes.
Small central disc herniation at C2/C3 causing mild spinal cord compression and central canal stenosis.
Moderate diffuse cerebral and cerebellar volume loss
Brain MRI wo indira(05/09/2024) acute/subacute right ICA infarct with hemorrhagic conversion, new acute to subacute R parks radiata and L inferior left cerebellar hemisphere.
CTA head/neck(05/01/2024)no evidence of intracranial or extracranial stenosis.
TTE(05/02/2024)-no evidence of PFO, ASA
PMH: type II DM, DLP, BPH, chronic prostatitis, elevated PSA, ?Asperger syndrome
PSH: prostate biopsy
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
All:PNC
ROS:Constitutional: Negative. Negative for chills, fever and unexpected weight change.
HENT: Negative for ear pain, hearing loss, tinnitus and trouble swallowing.
Eyes: Negative. Negative for photophobia, pain and visual disturbance.
Respiratory: Negative for cough, choking and shortness of breath.
Cardiovascular: Negative for chest pain, palpitations and leg swelling.
Gastrointestinal: Negative for abdominal pain and vomiting.
Endocrine: Negative. Negative for cold intolerance.
Genitourinary: Negative for dysuria, flank pain and urgency.
Musculoskeletal: Negative for back pain, gait problem, neck pain and neck stiffness.
Skin: Negative for rash.
Allergic/Immunologic: Negative. Negative for immunocompromised state.
Neurological: Negative for dizziness, tremors, seizures, speech difficulty, numbness and headaches.
Psychiatric/Behavioral: Negative for behavioral problems, confusion and hallucinations.
General: Well developed. In no acute distress.
Cardio: Regular rate and rhythm without murmur. Extremities are without cyanosis or edema.
Neuro:
Mental Status: Alert, oriented to name, age, month, year. Severely increased processing time. Able to cross midline. Impaired attention and comprehension. Nonfluent, no hemineglect.
Cranial Nerves: Pupils are equally round and reactive to light. EOMs full. BTT BL No ptosis. No nystagmus. L mild facial weakness Normal hearing AU. The palate elevated well. SCMs and traps 5/5. Tongue midline. No dysarthria. Severe
hypophonia
Motor: R hemiplegia
Reflexes: limited exam due to cooperation
Sensory: Unable due to encephalopathy
Coordination: No tremor; normal
Gait: Nonambulatory.
Assessment and Plan:
I. Acute R REMI with hemorrhagic conversion and edema
II. Acute R MCA and Left SCA territory strokes. Likely etiology-embolic.
III. Vacular/metabolic encephalopathy
V. Leukoaraiosis
. 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
-Continue Telemetry monitoring
-Neurochecks every 3 hours
-Aspiration precautions
-Head MRV or CTV
-Hold Plavix
-Leukoencephalopathy blood work
-DIAMANTE
-CT head wo contrast tomorrow in AM or with any change in neuro exam
-Continue Keppra 500 mg twice daily
-Continue ASA 81 mg QD
-Lipitor 80 mg QHS.
-Loop recorder if no events of Telemetry and normal DIAMANTE.
-PT, speech therapy
-DVT prophylaxis.
I personally reviewed all radiology and labs along with past medical records pertinent to current medical problems. Total time spent in patient care is 60 minutes.
Thank you for allowing us to participate in the care of this patient. We will continue to follow. Please do not hesitate to contact us with any questions or concerns.
Subjective/Objective
Subjective Data
Date of Service: May 09, 2024
Objective Data
Vital Signs
Temp Pulse Resp BP Pulse Ox
36.9 C 67 16 129/66 96
05/09/24 11:30 05/09/24 11:30 05/09/24 11:30 05/09/24 11:30 05/09/24 11:30
Lab Results
05/05/24 06:39
05/05/24 06:39
PT 12.5 Sec (11.4-14.6) 05/01/24 21:36
INR 0.96 05/01/24 21:36
APTT 25.0 Sec (23.4-35.0) 05/01/24 21:36
Sodium 138 mmol/L (135-145) 05/05/24 06:39
Potassium 4.2 mmol/L (3.5-5.1) 05/05/24 06:39
BUN 23 mg/dl (9-20) H 05/05/24 06:39
Glucose 190 mg/dl (70-99) H 05/05/24 06:39
Calcium 8.7 mg/dl (8.4-10.2) 05/05/24 06:39
LDL Cholesterol Direct 147 mg/dl 05/02/24 05:32
LDL Cholesterol, Calc mg/dl 05/02/24 05:32
Patient Allergies
Penicillins Allergy (Verified 05/01/24 21:59)
Unknown
Medications
-
Active Medications
Generic Name Dose Route Start Last Admin
Trade Name Freq PRN Reason Stop Dose Admin
Acetaminophen 650 mg 05/02/24 00:45 05/04/24 10:40
Acetaminophen 650 Mg Rectal Suppository RECTAL 05/30/24 00:44 650 mg
Q4HPRN PRN Administration
HARRIS, mild pain, or temp >100.4F
Acetaminophen 650 mg 05/02/24 00:45 05/02/24 21:47
Acetaminophen 325 Mg Tablet PO 05/30/24 00:44 650 mg
Q4HPRN PRN Administration
HARRIS, mild pain, or temp >100.4F
Aspirin 81 mg 05/02/24 10:00 05/09/24 08:59
Aspirin 81 Mg Chewable Tablet PO 05/30/24 09:59 81 mg
DAILY HO Administration
Atorvastatin Calcium 80 mg 05/02/24 18:00 05/08/24 18:19
Atorvastatin (Lipitor) 80 Mg Tablet PO 05/30/24 17:59 80 mg
QPM HO Administration
Clopidogrel Bisulfate 75 mg 05/02/24 08:00 05/09/24 09:00
Clopidogrel 75 Mg Tablet PO 05/30/24 07:59 75 mg
DAILY HO Administration
Dextrose 12.5 grams 05/02/24 00:45
Dextrose 50% (0.5 Grams/Ml) 50 Ml Syringe IV 05/30/24 00:44
[id number] PRN
hypoglycemia
Protocol
Glucagon 1 mg 05/02/24 00:45
Glucagon 1 Mg Vial IM 05/30/24 00:44
PRN PRN
hypoglycemia
Protocol
Insulin Aspart 0 units 05/06/24 11:30 05/09/24 13:53
Insulin Aspart Moderate Resistance 300 Units/3 Ml Pen.Injctr SC 06/03/24 11:29 3 units
AC HO Administration
Protocol
Levetiracetam 500 mg 05/09/24 20:00
Levetiracetam 500 Mg Regular Release Tablet PO 06/06/24 19:59
BID HO
Lisinopril 5 mg 05/03/24 11:00 05/09/24 08:59
Lisinopril 5 Mg Tablet PO 05/31/24 10:59 5 mg
DAILY HO Administration
Loratadine 10 mg 05/08/24 08:00
Loratadine 10 Mg Tablet PO 06/05/24 07:59
BIDPRN PRN
ALLERGY SYMPTOMS
Metoprolol Succinate 25 mg 05/04/24 08:00 05/09/24 08:58
Metoprolol 25 Mg Extended Release Tablet PO 06/01/24 07:59 25 mg
DAILY HO Administration
Pantoprazole Sodium 20 mg 05/02/24 15:00 05/09/24 08:59
Pantoprazole 20 Mg Delayed Release Tablet PO 05/30/24 14:59 20 mg
DAILY HO Administration
Pioglitazone HCl 15 mg 05/03/24 11:00 05/04/24 11:28
Pioglitazone Hcl 15 Mg Tablet PO 05/31/24 10:59 Not Given
DAILY HO
Sodium Chloride 0 flush 05/01/24 23:00
Sodium Chloride 0.9% (Flush) Syringe IV 05/29/24 22:59
PER PROTOCOL HO
Home Medications
�Medication �Instructions �Recorded
furosemide 20 mg tablet (Lasix) 20 mg PO DAILY 05/01/24
pioglitazone 15 mg tablet (Actos) 15 mg PO DAILY 05/01/24
rosuvastatin 40 mg tablet (Crestor) 40 mg PO DAILY 05/01/24
Vital Signs and Labs
-
Vital Signs and Labs:
Vital Signs
Temp Pulse Resp BP Pulse Ox
36.9 C 67 16 129/66 96
05/09/24 11:30 05/09/24 11:30 05/09/24 11:30 05/09/24 11:30 05/09/24 11:30
Lab Results
05/05/24 06:39
05/05/24 06:39
PT 12.5 Sec (11.4-14.6) 05/01/24 21:36
INR 0.96 05/01/24 21:36
APTT 25.0 Sec (23.4-35.0) 05/01/24 21:36
Sodium 138 mmol/L (135-145) 05/05/24 06:39
Potassium 4.2 mmol/L (3.5-5.1) 05/05/24 06:39
BUN 23 mg/dl (9-20) H 05/05/24 06:39
Glucose 190 mg/dl (70-99) H 05/05/24 06:39
Calcium 8.7 mg/dl (8.4-10.2) 05/05/24 06:39
LDL Cholesterol Direct 147 mg/dl 05/02/24 05:32
LDL Cholesterol, Calc mg/dl 05/02/24 05:32
Medications
-
Medications:
Generic Name Dose Route Start Last Admin
Trade Name Freq PRN Reason Stop Dose Admin
Acetaminophen 650 mg 05/02/24 00:45 05/04/24 10:40
Acetaminophen 650 Mg Rectal Suppository RECTAL 05/30/24 00:44 650 mg
Q4HPRN PRN Administration
HARRIS, mild pain, or temp >100.4F
Acetaminophen 650 mg 05/02/24 00:45 05/02/24 21:47
Acetaminophen 325 Mg Tablet PO 05/30/24 00:44 650 mg
Q4HPRN PRN Administration
HARRIS, mild pain, or temp >100.4F
Aspirin 81 mg 05/02/24 10:00 05/09/24 08:59
Aspirin 81 Mg Chewable Tablet PO 05/30/24 09:59 81 mg
DAILY HO Administration
Atorvastatin Calcium 80 mg 05/02/24 18:00 05/08/24 18:19
Atorvastatin (Lipitor) 80 Mg Tablet PO 05/30/24 17:59 80 mg
QPM HO Administration
Clopidogrel Bisulfate 75 mg 05/02/24 08:00 05/09/24 09:00
Clopidogrel 75 Mg Tablet PO 05/30/24 07:59 75 mg
DAILY HO Administration
Dextrose 12.5 grams 05/02/24 00:45
Dextrose 50% (0.5 Grams/Ml) 50 Ml Syringe IV 05/30/24 00:44
[id number] PRN
hypoglycemia
Protocol
Glucagon 1 mg 05/02/24 00:45
Glucagon 1 Mg Vial IM 05/30/24 00:44
PRN PRN
hypoglycemia
Protocol
Insulin Aspart 0 units 05/06/24 11:30 05/09/24 13:53
Insulin Aspart Moderate Resistance 300 Units/3 Ml Pen.Injctr SC 06/03/24 11:29 3 units
AC HO Administration
Protocol
Levetiracetam 500 mg 05/09/24 20:00
Levetiracetam 500 Mg Regular Release Tablet PO 06/06/24 19:59
BID HO
Lisinopril 5 mg 05/03/24 11:00 05/09/24 08:59
Lisinopril 5 Mg Tablet PO 05/31/24 10:59 5 mg
DAILY HO Administration
Loratadine 10 mg 05/08/24 08:00
Loratadine 10 Mg Tablet PO 06/05/24 07:59
BIDPRN PRN
ALLERGY SYMPTOMS
Metoprolol Succinate 25 mg 05/04/24 08:00 05/09/24 08:58
Metoprolol 25 Mg Extended Release Tablet PO 06/01/24 07:59 25 mg
DAILY HO Administration
Pantoprazole Sodium 20 mg 05/02/24 15:00 05/09/24 08:59
Pantoprazole 20 Mg Delayed Release Tablet PO 05/30/24 14:59 20 mg
DAILY HO Administration
Pioglitazone HCl 15 mg 05/03/24 11:00 05/04/24 11:28
Pioglitazone Hcl 15 Mg Tablet PO 05/31/24 10:59 Not Given
DAILY HO
Sodium Chloride 0 flush 05/01/24 23:00
Sodium Chloride 0.9% (Flush) Syringe IV 05/29/24 22:59
PER PROTOCOL HO
Home Medications
-
Home Medications
furosemide 20 mg tablet (Lasix) 20 mg PO DAILY 05/01/24
pioglitazone 15 mg tablet (Actos) 15 mg PO DAILY 05/01/24
rosuvastatin 40 mg tablet (Crestor) 40 mg PO DAILY 05/01/24
[2024-05-09] MEDS: LIPITOR PO (18:01)
[2024-05-09] MEDS: NOVOLOG FLEXPEN-MODERATE RESISTANCE 5 UNITS SC (18:35)
[2024-05-09 19:30] VITALS: BP 111/70
[2024-05-09 22:14] LABS: Erythrocyte Sed Rate 23 mm/hour (0-20)
[2024-05-09 22:21] LABS: Lactic Acid 1.7 mmol/L (0.7-2.0)
[2024-05-09] MEDS: KEPPRA 500 MG PO (22:22)
[2024-05-09 23:34] LABS: Glucose - Point of Care 164 mg/dl (70-99)
[2024-05-09 23:54] VITALS: BP 115/66
[2024-05-10 01:01] LABS: Amphetamines Negative (Negative); Barbiturates Negative (Negative); Benzodiazepines Negative (Negative); Buprenorphine Negative (Negative); Cocaine Negative (Negative); Marijuana Negative (Negative); Methadone Negative (Negative); Methamphetamines Negative (Negative); Opiates Negative (Negative); Phencyclidine Negative (Negative); Tricyclic Antidepressants Negative (Negative)
[2024-05-10 03:44] VITALS: BP 155/86
[2024-05-10 05:51] LABS: Glucose - Point of Care 197 mg/dl (70-99)
[2024-05-10 07:00] VITALS: BP 139/80
[2024-05-10] MEDS: KEPPRA 500 MG PO ×2 (08:08→20:24)
[2024-05-10] MEDS: NOVOLOG FLEXPEN-MODERATE RESISTANCE 1 UNITS SC (08:08)
[2024-05-10] MEDS: LOW STRENGTH ASPIRIN 81 MG PO (08:09)
[2024-05-10] MEDS: PROTONIX 20 MG PO (08:09)
[2024-05-10] MEDS: ZESTRIL 5 MG PO (08:09)
[2024-05-10] MEDS: TOPROL XL 25 MG PO (08:09)
--- NOTE | 2024-05-10 10:35 | W.PN.NEURO.1 ---
Today's Communication / Plan
-
.
Neuro Assessment/Plan
Assessment
This is a 63-year-old male who presented to on 05/01/24 with report of confusion, aphasia, and left sided hemiparesis. He was outside of the time window for TNK/IAT.
05/04/24 AMS, patient obtunded. Febrile to 101.2 and exam concerning for seizure. Keppra initiated.
-CTA head/neck 05/01/24: There is absent flow/occlusion in the right anterior cerebral artery beyond the A2 segment of the right anterior cerebral artery with absent flow in the proximal portions of the right callosal marginal and pericallosal
arteries with cross filling of distal pericallosal branches.
-MRI brain 05/02/24: LARGE 8.6 cm ACUTE ISCHEMIC INFARCT in the ANTEROMEDIAL RIGHT FRONTAL LOBE (right anterior cerebral artery territory) containing severe cytotoxic edema. Multiple small chronic infarcts in the white matter of both frontal lobes.
Small chronic lacunar infarcts in the basal ganglia. Severe white matter leukoaraiosis in the frontal and parietal lobes. Mild Wallerian degeneration in the right side of the midbrain and lisa. Moderate diffuse cerebral and cerebellar volume loss.
-EEG 05/05/24: This EEG is abnormal due to the presence of diffuse lowing to ~7Hz frequencies consistent with mild diffuse cerebral dysfunction, nonspecific in etiology.. The study was limited frequently by movement artifact and artifact from the
patient attempting to remove leads. From what was visible beneath the frequent artifact, no clear seizures were seen.
I. Large R REMI territory ischemic infarct in the setting of R A2 REMI occlusion. Etiology possibly cardioembolic.
II. Likely seizure and fever of unknown origin in the setting of large ischemic infarct producing change in mental status over the past few days, now improving.
III. Multiple old chronic infarcts.
IV. NIDDM.
V. HLD
. HTN
Plan
-Continue Keppra 500mg IV q12hrs.
-Continue DAPT with aspirin 81mg daily and Plavix 75mg daily for 21 days. After 21 days, stop Plavix and continue aspirin 81mg daily only, indefinitely.
-Goal normotension.
-Goal normothermia.
-Monitor on telemetry, consider outpatient Holter monitoring.
-LDL goal <70. LDL is 147. Continue atorvastatin 80mg daily.
-Goal normoglycemia, hbA1c is 8.9.
-NIHSS and neurological checks per unit guidelines.
-Patient provided with a stroke education packet.
-PT/OT/ST evaluations.
-DVT prophylaxis.
-Patient should follow-up with Neurology in 4-6 weeks, may see the COPYMAN or one of the physicians.
Subjective/Objective
Subjective Data
Date of Service: May 10, 2024
Reason for Consult: Stroke
Neurology follow-up note
24h events: Normotensive, afebrile, no reported or documented seizures.
Telemetry�normal sinus rhythm
MAR: No [employer] suppressants.
MRV head-no evidence of thrombosis.
Labs: pending
Brain MRI wo indira(05/02/2024) acute R REMI infarct with edema, multiple chronic periventricular white matter infarcts in the frontal lobes measuring 5 mm in size in the right frontal lobe and 6.4 mm in size in the left frontal lobe. There is a 5.9 mm
chronic infarct in the periventricular right frontal lobe and right basal ganglia. There is a 4.5 mm chronic infarct in the superior right basal ganglia. There is a 6.7 mm chronic lacunar infarct in the left basal ganglia; severe white matter
leukoaraiosis in the frontal and parietal lobes.
Small central disc herniation at C2/C3 causing mild spinal cord compression and central canal stenosis.
Moderate diffuse cerebral and cerebellar volume loss
Brain MRI wo indira(05/09/2024) acute/subacute right ICA infarct with hemorrhagic conversion, new acute to subacute R parks radiata and L inferior left cerebellar hemisphere.
CTA head/neck(05/01/2024)no evidence of intracranial or extracranial stenosis.
TTE(05/02/2024)-no evidence of PFO, ASA
PMH: type II DM, DLP, BPH, chronic prostatitis, elevated PSA, ?Asperger syndrome
PSH: prostate biopsy
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
All:PNC
ROS: Unable due to encephalopathy
General: Well developed. In no acute distress.
Cardio: Regular rate a. Extremities are without cyanosis or edema.
Neuro:
Mental Status: Stuporous, grimaces to sternal rub. Does not follow requests. No verbal output
CN: Resisted eye opening. Left facial weakness.
Motor: Spastic hemiplegia on the left, spastic hemiparesis on the left(leg>arm)
Reflexes: Limited exam due to increased motor
Sensory: Does not localize
Coordination: No tremors or myoclonic movements
Gait: Nonambulatory.
Assessment and Plan:
I. Acute R REMI with hemorrhagic conversion and edema
II. Acute R MCA and Left SCA territory strokes. Likely etiology-embolic.
III. Vacular/metabolic encephalopathy, clinically worse.
V. Leukoaraiosis
. 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
-NPO
-stat CT head wo contrast
-f/u Leukoencephalopathy blood work
-DIAMANTE
-Continue Keppra 500 mg twice daily
-Lipitor 80 mg QHS.
-Loop recorder if no events of Telemetry and normal DIAMANTE.
-Will consider ABG and EEG based on CT head results
-DVT prophylaxis.
I personally reviewed all radiology and labs along with past medical records pertinent to current medical problems. Total time spent in patient care is 35 minutes.
Thank you for allowing us to participate in the care of this patient. We will continue to follow. Please do not hesitate to contact us with any questions or concerns.
Objective Data
Vital Signs
Temp Pulse Resp BP Pulse Ox
36.8 C 70 18 139/80 96
05/10/24 07:00 05/10/24 07:00 05/10/24 07:00 05/10/24 07:00 05/10/24 07:00
Lab Results
05/05/24 06:39
PT 12.5 Sec (11.4-14.6) 05/01/24 21:36
INR 0.96 05/01/24 21:36
APTT 25.0 Sec (23.4-35.0) 05/01/24 21:36
Sodium 138 mmol/L (135-145) 05/05/24 06:39
Potassium 4.2 mmol/L (3.5-5.1) 05/05/24 06:39
BUN 23 mg/dl (9-20) H 05/05/24 06:39
Glucose 190 mg/dl (70-99) H 05/05/24 06:39
Calcium 8.7 mg/dl (8.4-10.2) 05/05/24 06:39
LDL Cholesterol Direct 147 mg/dl 05/02/24 05:32
LDL Cholesterol, Calc mg/dl 05/02/24 05:32
Ur Buprenorphine Negative (Negative) 05/10/24 00:23
Patient Allergies
Penicillins Allergy (Verified 05/01/24 21:59)
Unknown
[2024-05-10 11:18] LABS: Blood Urea Nitrogen 22 mg/dl (9-20); Calcium 9.2 mg/dl (8.4-10.2); Carbon Dioxide 26 mmol/L (22-30); Chloride 101 mmol/L (98-107); Estimated Creatinine Clearance 70 ml/min; Glucose 218 mg/dl (70-99); Potassium 4.5 mmol/L (3.5-5.1); Sodium 137 mmol/L (135-145); eGFR > 60.00
[2024-05-10] MEDS: NOVOLOG FLEXPEN-MODERATE RESISTANCE SC (11:50)
[2024-05-10 12:22] LABS: % Basophils 0.6 % (0-2); % Eosinophils 1.8 % (0-6); % Immature Granulocytes 0.3 % (0-0.5); % Lymphocytes 13.1 % (20.5-51.1); % Monocytes 8.8 % (1.7-9.3); % Neutrophils 75.4 % (42.2-75.2); Absolute Basophils 0.1 10^3/uL (0-0.2); Absolute Eosinophils 0.2 10^3/uL (0-0.7); Absolute Lymphocytes 1.1 10^3/uL (1.2-3.4); Absolute Monocytes 0.8 10^3/uL (0.1-0.6); Absolute Neutrophils 6.6 10^3/uL (1.4-6.5); Hematocrit 44.8 % (39.0-52.0); Hemoglobin 15.1 g/dL (13.0-18.0); Mean Corp Hgb Conc. 33.7 g/dL (33.0-37.0); Mean Platelet Volume 11.9 fL (7.4-10.4); Nucleated Red Blood Cells % 0 % (-); Platelet Count 185 10^3/uL (130-400); Red Blood Cell Count 5.21 10^6/uL (4.70-6.10); Red Cell Dist. Width 12.8 % (11.5-14.5); White Blood Cell Count 8.7 10^3/uL (4.8-10.8)
--- NOTE | 2024-05-10 13:41 | W.PN.CD ---
Today's Communication / Plan
-
Unremarkable DIAMANTE.
We will signoff please call with questions/concerns.
Impression / Plan
-
Stroke:
-this diagnosis is threat to bodily function
-Head CT: There is 8.5 cm subacute nonhemorrhagic right middle cerebral artery infarct with cytotoxic edema and mass effect with compression of the underlying ventricle and effacement of the overlying sulci. There is 15 mm lacunar infarct involving
the head of the caudate and anterior limb of the internal capsule and the right. There is a 20 mm lacunar infarct involving the head of the caudate, anterior limb of the internal capsule and lentiform nucleus on the left. There is moderate diffuse
cortical atrophy with nonspecific white matter changes as described above.
-Brain MRI: Signal abnormality involving the previously seen right anterior cerebral artery infarct. There has been interval development of decreased T2 gradient-echo signal within this area of infarction, suggesting hemosiderin deposition from a
component of hemorrhage. MRI is very sensitive for hemorrhage, and this may represent microscopic hemorrhage. If evaluation for a component of macroscopic hemorrhage is desired, consider a follow-up CT of the head. New foci of acute to subacute
infarction involving the parks radiata of the right parietal lobe and the anterior and inferior left cerebellar hemisphere.
-On ASA, plavix, statin
-tele stable without arrhythmia. Echo unremarkable.
- DIAMANTE was unremarkable no PFO appreciated
HTN:
-better with ACEI/BB addition
HLD:
-LDL 147
-now on statin
DM:
-hgbA1C 8.9
-management per primary
Physical Exam
Vital Signs/Labs
Vital Signs
Temp Pulse Resp BP Pulse Ox
98.2 F 70 18 139/80 96
05/10/24 07:00 05/10/24 07:00 05/10/24 07:00 05/10/24 07:00 05/10/24 08:20
05/10/24 06:00
05/10/24 10:32
PT 12.5 Sec (11.4-14.6) 05/01/24 21:36
INR 0.96 05/01/24 21:36
APTT 25.0 Sec (23.4-35.0) 05/01/24 21:36
Magnesium 1.9 mg/dl (1.6-2.3) 05/02/24 05:32
Triglycerides 469 mg/dl (10-149) H 05/02/24 05:32
LDL Cholesterol, Calc mg/dl 05/02/24 05:32
VLDL Cholesterol, Calc mg/dl (0-30) 05/02/24 05:32
HDL Cholesterol 41 mg/dl 05/02/24 05:32
Physical Exam
Constitutional: No acute distress and Comfortable
EENT: Anicteric
Cardiovascular: Rhythm & rate is regular and Pedal edema is absent
Respiratory: Respiratory effort normal
GI: Soft
Neuro/Psych: Alert and Oriented
Data Reviewed
-
Date of Service: May 10, 2024
EKG: Tracing Personally Visualized and interpreted (sr)
Echo: Tracing Personally Visualized and interpreted
Labs: Labs Reviewed by me
--- NOTE | 2024-05-10 14:06 | EEG.RPT ---
Electroencephalogram Report
Recording
Date of EE05/10/24
Type of EEG: Routine
Length of EEG recordin mins
Done with Video Recording: Yes
Patient Status: Inpatient
Recording Conditions: Asleep
Hyperventilation Performed: No
Photic Stimulation Performed: Yes
Report
A 21 channel digitized electroencephalogram was performed at [facility]. The 10/20 international system of electrode placement was used. In addition to EEG, the patient was monitored for EKG. The duration of the recording was 23 minutes.
BACKGROUND
The background consisted of diffuse lowing to ~7Hz frequencies
SLEEP
Stage II sleep was obtained and consisted of symmetrical sleep spindles.
PHOTIC STIMULATION
Photic stimulation using a step-moore increase in photic frequency varying from 1-31 Hertz resulted in no driving responses but no appearance of abnormal activity.
CLINICAL EVENTS
None
INTERPRETATION AND CLINICAL CORRELATION
This EEG is abnormal due to the presence of diffuse lowing to ~7Hz frequencies consistent with mild diffuse cerebral dysfunction, nonspecific in etiology. Sleep architecture was also captured; no clear epileptiform abnormalities were noted.
--- NOTE | 2024-05-10 14:22 | CM ---
CM reviewed chart and call to sister to review dc planning
Pt offered beds at [facility] and [facility] and [facility] extended care are considering
Pt declined at a number of SNFs
[facility] is 1st choice per sister
Pt with Aspergers and thorough PASRR screen completed
Pt diagnosed two years prior greater than 18 y/o- pt is NOT a target
Updated PASRR completed and uploaded into Care Port
Pt will require auth for SNF placement with eventual transition to LTC
Discharge Disposition- SNF pending auth
[2024-05-10 15:00] VITALS: BP 145/80
--- NOTE | 2024-05-10 15:20 | PTOTSP ---
Speech Language Pathology
Pt seen for aphasia/apraxia tx. Suspect severe apraxia, negatively affecting swallow initiation, verbal initiation, and oral motor commands. Able to follow 1-step commands in all areas, except oral motor. Verbalized x3 during session
spontaneously (not in response to command), which further supports apraxia dx. He stated 'no,' 'depressing' when RN TRANSFER pointed out political commercials, and 'brain is broken' at end of session with pt crying after saying this.
Pt also seen for dysphagia tx. P.O. trials of puree, regular solids, and thin liquids provided. Adequate mastication of regular solids. Improved swallow initiation with regular solids compared to puree and thin liquids, suspect secondary to
increased tactile feedback. Significant oral holding with puree and thin liquids. Provided max cueing, including touching empty tsp to lips, offering next trial, oral prep set, verbal cueing, buccal/laryngeal massage. Inconsistently effective.
Had to orally suction thin liquids from oral cavity given no initiation x2. Mild diffuse oral residue of solids suctioned from oral cavity. Pt attempting to aid in swallow initiation himself by touching cracker to his lips, but this was
ineffective. No overt signs of aspiration.
Recommend:
(1) Upgrade to IDDSI Level 6 (Soft/Bite-Sized) and Thin Liquids
(2) Aspiration precautions: ensure pt swallows prior to next bite/sip, oral suctioning post meals, sit upright, full supervision
(3) Meds as tolerated
(4) Consider repeat PM&R consult for acute rehab consideration
(5) RN TRANSFER to continue to follow
[2024-05-10 15:24] LABS: HIV Combo Negative (Negative)
--- NOTE | 2024-05-10 16:20 | W.PN.HOSP.TC ---
Today's Communication/Plan
-
DIAMANTE.
Diet with aspiration precautions per
Continue monitoring for neurologic recovery
Attempt of physical therapy.
Consider repeat physiatry evaluation if able to participate with PT.
Assessment / Plan
Assessment / Plan
Impression:
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
Fever
History of multiple CVA
Essential hypertension
NIDDM.
Asperger syndrome reported
Plan:
Acute likely embolic multifocal CVA.
MRI of the brain:
1. LARGE 8.6 cm ACUTE ISCHEMIC INFARCT in the ANTEROMEDIAL RIGHT FRONTAL LOBE (right anterior cerebral artery territory) containing severe cytotoxic edema.
2. Multiple small chronic infarcts in the white matter of both frontal lobes.
3. Small chronic lacunar infarcts in the basal ganglia.
4. Severe white matter leukoaraiosis in the frontal and parietal lobes.
5. Mild Wallerian degeneration in the right side of the midbrain and lisa.
6. Moderate diffuse cerebral and cerebellar volume loss.
CTA
There is absent flow/occlusion in the right anterior cerebral artery beyond the A2 segment of the right anterior cerebral artery with absent flow in the proximal portions of the right callosal marginal and pericallosal arteries with cross filling of
distal pericallosal branches
Risk factors dyslipidemia/LDL 147
Diabetes
ECG NSR/sinus tach. No known history of arrhythmias.
Echocardiogram with preserved ventricular function and no evidence for cardioembolic source
Found not to be a candidate for thrombolytics given unknown time of onset of symptoms/duration.
Initiated on dual antiplatelet therapy: Aspirin�Plavix. For 21 days with aspirin on day 22.
Statin.
Repeat MRI 05/09 with new foci of acute to subacute infarction involving parks radiata of the right parietal lobe and anterior and inferior left cerebral hemisphere.
In addition there is a hemorrhagic component at the right REMI infarct territory
MRV negative for thrombosis
DIAMANTE 05/10 with no evidence of cardioembolic source.
Initially on DAPT with aspirin and Plavix, although with concern for hemorrhagic conversion as well as no evidence of intracranial stenosis on imaging Plavix had been discontinued on 05/09
Clinical concern for embolic CVA, although no documented arrhythmia on presentation and ongoing telemetry. May require outpatient cardiac monitoring.
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
Concern for subclinical seizures given persistent lethargy
Repeated EEG with no epileptic activity.
Continue Keppra 5 mg every 12 hours
Continue to monitor mental status closely
Aspiration risk.
Speech evaluation daily including VSE on 05/06
Aspiration precautions
Initiated on modified diet.
New onset of fever 05/03 - 05/04.
Lethargic.
Concern for evolving infection/sepsis: At risk for aspiration, UTI
Sepsis workup with negative
Initiated empiric antibiotics discontinued on 05/05
Keep n.p.o. while awaiting oral medications with caution.
Essential hypertension
Adjust antihypertensive regimen with increased dose of Toprol and addition of lisinopril.
Type 2 diabetes
Hemoglobin A1c 8.9
Given persistent neurologic deficiencies hold oral glucose lowering medication
Continue basal bolus protocol
Initiated on Lantus. Continue dose adjustment.
Anticipated Discharge: > 48 hours
Anticipated Discharge: 24 - 48 hours
Subjective/Interval History
-
Date of Service: May 10, 2024
Objective Data
-
Labs:
Laboratory Results
05/10/24 05/10/24
06:00 10:32
WBC 8.7
Hgb 15.1
Hct 44.8
Plt Count 185 D
Sodium 137
Potassium 4.5
Chloride 101
Carbon Dioxide 26
BUN 22 H
Creatinine 1.2
Glucose 218 H
Calcium 9.2
Vital Signs:
Vital Signs
Temp Pulse Resp BP Pulse Ox
98.2 F 70 18 139/80 96
05/10/24 07:00 05/10/24 07:00 05/10/24 07:00 05/10/24 07:00 05/10/24 08:20
I&O
05/09/24 05/10/24 05/11/24
06:59 06:59 06:59
Intake Total 840 / 840 580 / 580
Balance 840 / 840 580 / 580
Physical Exam
-
General: Well Nourished, No Apparent Distress and Comfortable
HEENT: Normocephalic, Atraumatic and Moist Mucous Membranes
Respiratory: Clear to Auscultation and Non Labored Respirations; Negative Wheezes, Rales or Rhonchi
Cardiac: Regular Rhythm and S1/S2; Negative Murmur, Rub or Gallop
GI: Soft, Nontender, Nondistended and Normal Bowel Sounds
Musculoskeletal: No Clubbing, No Cyanosis and No Edema
Skin: Warm and Dry; Negative Rash
Neuro: AO x 3, Central Nerve's Intact and Other (Flaccid paralysis to the left extremities, upgoing Babinski on left)
Psych: Calm
[2024-05-10 16:51] LABS: Glucose - Point of Care 219 mg/dl (70-99)
[2024-05-10] MEDS: NOVOLOG FLEXPEN-MODERATE RESISTANCE 3 UNITS SC (16:58)
[2024-05-10] MEDS: LIPITOR 80 MG PO (17:00)
[2024-05-10 19:23] VITALS: BP 101/59
[2024-05-10 21:51] LABS: Glucose - Point of Care 175 mg/dl (70-99)
[2024-05-10 22:53] VITALS: BP 158/101
[2024-05-10] MEDS: LANTUS 0.07 UNITS SC (23:09)
[2024-05-11] VITALS (8 sets, daily range): BP systolic 96–153; BP diastolic 60–89
--- NOTE | 2024-05-11 02:45 | FALL ---
Description of Fall: RN heard bed alarm sounding. Upon entering room, Patient seen laying horizontal across bed with torso and legs on bed but head and arms dangling over side of bed with head touching floor. Patient denies pain but states he hit
his head on the floor.
Injuries Noted: No visible injuries noted
Action Taken: Patient assisted back into bed by staff. Neuro checks unchanged from previous neurochecks. Vitals stable. direct care worker PETER and claims adjuster supervisor notified. Head CT obtained.
Name of Provider Notified: PETER Gibbons
--- NOTE | 2024-05-11 03:23 | W.PN.UPDATE ---
Update Note
Progress Note Update
RN notified LAUNDRY AGENT, noticed patient dangling his upper body from the bed towards floor, almost touching the ground. Patient is AAOx2-3, reports he has autism and couldn't focus. does report he hit his head, mild redness on top of his head, nothing new
per nursing, no bruises, cuts noted. Denies headache, dizziness or blur vision at present. Neuro checks at baseline. was on Plavix, ASA, Will order CT head r/o bleed. Stable VS.
[2024-05-11 07:08] LABS: Glucose - Point of Care 180 mg/dl (70-99)
[2024-05-11] MEDS: KEPPRA 500 MG PO ×2 (08:19→19:57)
[2024-05-11] MEDS: NOVOLOG FLEXPEN-MODERATE RESISTANCE 1 UNITS SC ×2 (08:19→17:34)
[2024-05-11] MEDS: LOW STRENGTH ASPIRIN 81 MG PO (08:20)
[2024-05-11] MEDS: PROTONIX 20 MG PO (08:23)
[2024-05-11] MEDS: TOPROL XL 25 MG PO (08:23)
[2024-05-11] MEDS: ZESTRIL 5 MG PO (08:24)
--- NOTE | 2024-05-11 08:52 | W.PN.NEURO.1 ---
Today's Communication / Plan
-
.
Subjective/Objective
Subjective Data
Date of Service: May 11, 2024
Neurology follow-up note
24h events: The patient was found repositioned in the bed with no evidence of fall/trauma. Mr. Varghese reports a mild headache-I always have sinus headache'.
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
DIAMANTE(05/10/2024)-no evidence of cardioembolism.
Routine EEG(05/10/2024) diffuse slowing to ~7Hz.
CT head wo contrast(05/11/2024) Continued evolution of right REMI territory infarct without evidence of hemorrhagic conversion. Interval decrease in edema as evidenced by decreased sulcal effacement and regional mass effect. There is no significant
midline shift. Continued evolution of the infarct involving the parks radiata of the right parietal lobe without hemorrhagic conversion. Infarct involving the left cerebellar hemisphere seen on recent MR is not appreciated on the current
examination.
Brain MRI wo indira(05/02/2024) acute R REMI infarct with edema, multiple chronic periventricular white matter infarcts in the frontal lobes measuring 5 mm in size in the right frontal lobe and 6.4 mm in size in the left frontal lobe. There is a 5.9 mm
chronic infarct in the periventricular right frontal lobe and right basal ganglia. There is a 4.5 mm chronic infarct in the superior right basal ganglia. There is a 6.7 mm chronic lacunar infarct in the left basal ganglia; severe white matter
leukoaraiosis in the frontal and parietal lobes.
Small central disc herniation at C2/C3 causing mild spinal cord compression and central canal stenosis.
Moderate diffuse cerebral and cerebellar volume loss
Brain MRI wo indira(05/09/2024) acute/subacute right ICA infarct with hemorrhagic conversion, new acute to subacute R parks radiata and L inferior left cerebellar hemisphere.
CTA head/neck(05/01/2024)no evidence of intracranial or extracranial stenosis.
TTE(05/02/2024)-no evidence of PFO, ASA
PMH: type II DM, DLP, BPH, chronic prostatitis, elevated PSA, ?Asperger syndrome
PSH: prostate biopsy
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
All:PNC
ROS: Positive for mild headache, negative for ear pain, tinnitus.
General: Well developed. In no acute distress.
Cardio: Regular rate . Extremities are without cyanosis or edema.
Neuro:
Mental Status: Awake, oriented to name, month, year. Poor attention and comprehension. Increased processing time. No aphasia.
CN: Orthophoric primary gaze. Pupils�3 mm, reactive. Extraocular movement intact. Left facial weakness. Hearing is preserved. No dysarthria.
Motor: spastic hemiplegia on the left (traceable flexion in the left lower extremity). RLE drift. Right upper extremity�antigravity
Reflexes: Limited exam due to increased motor tone
Coordination: No tremors or myoclonic movements
Gait: Nonambulatory.
Assessment and Plan:
I. Acute R REMI with hemorrhagic conversion and edema(improved)
II. Acute R MCA and Left SCA territory strokes. Likely etiology-embolic.
III. Vacular/metabolic encephalopathy, clinically improved.
V. Leukoaraiosis
. 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
-f/u Leukoencephalopathy blood work
-Continue ASA 81mg QD. No indications for DAPT due to high NIH stroke score.
-Lipitor 80 mg QHS.
-Strict glycemic control
-Cardiology consult for ILR.
-Wean off Keppra as OP
-DVT prophylaxis.
-OP Neurology follow up in 2-3 weeks
I personally reviewed all radiology and labs along with past medical records pertinent to current medical problems. Total time spent in patient care is 35 minutes.
Thank you for allowing us to participate in the care of this patient. Please do not hesitate to contact us with any questions or concerns.
Objective Data
Vital Signs
Temp Pulse Resp BP Pulse Ox
36.5 C 71 18 127/76 95
05/11/24 03:09 05/11/24 03:09 05/11/24 03:09 05/11/24 03:09 05/11/24 03:09
Lab Results
05/10/24 06:00
05/10/24 10:32
PT 12.5 Sec (11.4-14.6) 05/01/24 21:36
INR 0.96 05/01/24 21:36
APTT 25.0 Sec (23.4-35.0) 05/01/24 21:36
Sodium 137 mmol/L (135-145) 05/10/24 10:32
Potassium 4.5 mmol/L (3.5-5.1) 05/10/24 10:32
BUN 22 mg/dl (9-20) H 05/10/24 10:32
Glucose 218 mg/dl (70-99) H 05/10/24 10:32
Calcium 9.2 mg/dl (8.4-10.2) 05/10/24 10:32
LDL Cholesterol Direct 147 mg/dl 05/02/24 05:32
LDL Cholesterol, Calc mg/dl 05/02/24 05:32
Ur Buprenorphine Negative (Negative) 05/10/24 00:23
Patient Allergies
Penicillins Allergy (Verified 05/01/24 21:59)
Unknown
Vital Signs and Labs
-
Vital Signs and Labs:
Vital Signs
Temp Pulse Resp BP Pulse Ox
36.4 C 66 16 127/72 98
05/11/24 08:00 05/11/24 08:00 05/11/24 08:00 05/11/24 08:00 05/11/24 08:00
Lab Results
05/10/24 06:00
05/10/24 10:32
PT 12.5 Sec (11.4-14.6) 05/01/24 21:36
INR 0.96 05/01/24 21:36
APTT 25.0 Sec (23.4-35.0) 05/01/24 21:36
Sodium 137 mmol/L (135-145) 05/10/24 10:32
Potassium 4.5 mmol/L (3.5-5.1) 05/10/24 10:32
BUN 22 mg/dl (9-20) H 05/10/24 10:32
Glucose 218 mg/dl (70-99) H 05/10/24 10:32
Calcium 9.2 mg/dl (8.4-10.2) 05/10/24 10:32
LDL Cholesterol Direct 147 mg/dl 05/02/24 05:32
LDL Cholesterol, Calc mg/dl 05/02/24 05:32
Ur Buprenorphine Negative (Negative) 05/10/24 00:23
Medications
-
Medications:
Generic Name Dose Route Start Last Admin
Trade Name Freq PRN Reason Stop Dose Admin
Acetaminophen 650 mg 05/02/24 00:45 05/04/24 10:40
Acetaminophen 650 Mg Rectal Suppository RECTAL 05/30/24 00:44 650 mg
Q4HPRN PRN Administration
HARRIS, mild pain, or temp >100.4F
Acetaminophen 650 mg 05/02/24 00:45 05/02/24 21:47
Acetaminophen 325 Mg Tablet PO 05/30/24 00:44 650 mg
Q4HPRN PRN Administration
HARRIS, mild pain, or temp >100.4F
Aspirin 81 mg 05/02/24 10:00 05/11/24 08:20
Aspirin 81 Mg Chewable Tablet PO 05/30/24 09:59 81 mg
DAILY HO Administration
Atorvastatin Calcium 80 mg 05/02/24 18:00 05/10/24 17:00
Atorvastatin (Lipitor) 80 Mg Tablet PO 05/30/24 17:59 80 mg
QPM HO Administration
Dextrose 12.5 grams 05/02/24 00:45
Dextrose 50% (0.5 Grams/Ml) 50 Ml Syringe IV 05/30/24 00:44
B50CGQR PRN
hypoglycemia
Protocol
Glucagon 1 mg 05/02/24 00:45
Glucagon 1 Mg Vial IM 05/30/24 00:44
PRN PRN
hypoglycemia
Protocol
Insulin Glargine 7 units/ 0.07 mls @ 0 mls/hr 05/10/24 22:00 05/10/24 23:09
Device SC 06/07/24 21:59 0.07 mls
HS HO Administration
As Directed
Insulin Aspart 0 units 05/06/24 11:30 05/11/24 08:19
Insulin Aspart Moderate Resistance 300 Units/3 Ml Pen.Injctr SC 06/03/24 11:29 1 units
AC HO Administration
Protocol
Levetiracetam 500 mg 05/09/24 20:00 05/11/24 08:19
Levetiracetam 500 Mg Regular Release Tablet PO 06/06/24 19:59 500 mg
BID HO Administration
Lisinopril 5 mg 05/03/24 11:00 05/11/24 08:24
Lisinopril 5 Mg Tablet PO 05/31/24 10:59 5 mg
DAILY HO Administration
Loratadine 10 mg 05/08/24 08:00
Loratadine 10 Mg Tablet PO 06/05/24 07:59
BIDPRN PRN
ALLERGY SYMPTOMS
Metoprolol Succinate 25 mg 05/04/24 08:00 05/11/24 08:23
Metoprolol 25 Mg Extended Release Tablet PO 06/01/24 07:59 25 mg
DAILY HO Administration
Pantoprazole Sodium 20 mg 05/02/24 15:00 05/11/24 08:23
Pantoprazole 20 Mg Delayed Release Tablet PO 05/30/24 14:59 20 mg
DAILY HO Administration
Pioglitazone HCl 15 mg 05/03/24 11:00 05/04/24 11:28
Pioglitazone Hcl 15 Mg Tablet PO 05/31/24 10:59 Not Given
DAILY HO
Sodium Chloride 0 flush 05/01/24 23:00
Sodium Chloride 0.9% (Flush) Syringe IV 05/29/24 22:59
PER PROTOCOL HO
Home Medications
-
Home Medications
furosemide 20 mg tablet (Lasix) 20 mg PO DAILY 05/01/24
pioglitazone 15 mg tablet (Actos) 15 mg PO DAILY 05/01/24
rosuvastatin 40 mg tablet (Crestor) 40 mg PO DAILY 05/01/24
azelastine 137 mcg (0.1 %) nasal spray 1 spray intranasal BID 05/10/24
glipizide 10 mg tablet 10 mg PO DAILY 05/10/24
metformin 500 mg tablet 500 mg PO BID 05/10/24
--- NOTE | 2024-05-11 09:46 | W.PN.UPDATE ---
Update Note
Progress Note Update
-ILR requested by Neurology.
-Will arrange with EP Cardiology tomorrow.
--- NOTE | 2024-05-11 11:14 | CM ---
CM reviewed chart, met with patient and sister, Merrill, bedside. Merrill reports she just spoke with [facility], believes they are able to accept patient for rehab with transition to LTC. Merrill unsure if [facility] will be reevaluating patient for acute
rehab, TT to Hospitalist. CM will continue to follow for all discharge planning needs.
Plan; [facility]/LTC, will require insurance auth, vs Acute Rehab.
[2024-05-11 12:03] LABS: Glucose - Point of Care 220 mg/dl (70-99)
[2024-05-11] MEDS: NOVOLOG FLEXPEN-MODERATE RESISTANCE 3 UNITS SC (12:08)
[2024-05-11 17:06] LABS: Glucose - Point of Care 168 mg/dl (70-99)
[2024-05-11] MEDS: LIPITOR 80 MG PO (17:35)
--- NOTE | 2024-05-11 18:12 | W.PN.HOSP.TC ---
Today's Communication/Plan
-
Continue supportive care.
Continue aspirin.
Physiatry evaluation.
Outpatient cardiac monitoring/ILR
Assessment / Plan
Assessment / Plan
Impression:
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
Fever
History of multiple CVA
Essential hypertension
NIDDM.
Asperger syndrome reported
Plan:
Acute likely embolic multifocal CVA.
MRI of the brain:
1. LARGE 8.6 cm ACUTE ISCHEMIC INFARCT in the ANTEROMEDIAL RIGHT FRONTAL LOBE (right anterior cerebral artery territory) containing severe cytotoxic edema.
2. Multiple small chronic infarcts in the white matter of both frontal lobes.
3. Small chronic lacunar infarcts in the basal ganglia.
4. Severe white matter leukoaraiosis in the frontal and parietal lobes.
5. Mild Wallerian degeneration in the right side of the midbrain and lisa.
6. Moderate diffuse cerebral and cerebellar volume loss.
CTA
There is absent flow/occlusion in the right anterior cerebral artery beyond the A2 segment of the right anterior cerebral artery with absent flow in the proximal portions of the right callosal marginal and pericallosal arteries with cross filling of
distal pericallosal branches
Risk factors dyslipidemia/LDL 147
Diabetes
ECG NSR/sinus tach. No known history of arrhythmias.
Echocardiogram with preserved ventricular function and no evidence for cardioembolic source
Found not to be a candidate for thrombolytics given unknown time of onset of symptoms/duration.
Initiated on dual antiplatelet therapy: Aspirin�Plavix. For 21 days with aspirin on day 22.
Statin.
Repeat MRI 05/09 with new foci of acute to subacute infarction involving parks radiata of the right parietal lobe and anterior and inferior left cerebral hemisphere.
In addition there is a hemorrhagic component at the right REMI infarct territory
MRV negative for thrombosis
DIAMANTE 05/10 with no evidence of cardioembolic source.
Initially on DAPT with aspirin and Plavix, although with concern for hemorrhagic conversion as well as no evidence of intracranial stenosis on imaging Plavix had been discontinued on 05/09
Clinical concern for embolic CVA, although no documented arrhythmia on presentation and ongoing telemetry. May require outpatient cardiac monitoring.
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
Concern for subclinical seizures given persistent lethargy
Repeated EEG with no epileptic activity.
Continue Keppra 5 mg every 12 hours
Continue to monitor mental status closely
Aspiration risk.
Speech evaluation daily including VSE on 05/06
Aspiration precautions
Initiated on modified diet.
New onset of fever 05/03 - 05/04.
Lethargic.
Concern for evolving infection/sepsis: At risk for aspiration, UTI
Sepsis workup with negative
Initiated empiric antibiotics discontinued on 05/05
Keep n.p.o. while awaiting oral medications with caution.
Essential hypertension
Adjust antihypertensive regimen with increased dose of Toprol and addition of lisinopril.
Type 2 diabetes
Hemoglobin A1c 8.9
Given persistent neurologic deficiencies hold oral glucose lowering medication
Continue basal bolus protocol
Initiated on Lantus. Continue dose adjustment.
Anticipated Discharge: > 48 hours
Anticipated Discharge: 24 - 48 hours
Subjective/Interval History
-
Date of Service: May 11, 2024
Objective Data
-
Vital Signs:
Vital Signs
Temp Pulse Resp BP Pulse Ox
98.3 F 72 20 132/73 97
05/11/24 15:00 05/11/24 15:00 05/11/24 15:00 05/11/24 15:00 05/11/24 15:00
I&O
05/10/24 05/11/24 05/12/24
06:59 06:59 06:59
Intake Total 580 / 580 720 / 720
Balance 580 / 580 720 / 720
Physical Exam
-
General: Well Nourished, No Apparent Distress and Comfortable
HEENT: Normocephalic, Atraumatic and Moist Mucous Membranes
Respiratory: Clear to Auscultation and Non Labored Respirations; Negative Wheezes, Rales or Rhonchi
Cardiac: Regular Rhythm and S1/S2; Negative Murmur, Rub or Gallop
GI: Soft, Nontender, Nondistended and Normal Bowel Sounds
Musculoskeletal: No Clubbing, No Cyanosis and No Edema
Skin: Warm and Dry; Negative Rash
Neuro: Central Nerve's Intact and Other (Flaccid paralysis to the left extremities, upgoing Babinski on left)
Psych: Calm
[2024-05-11 21:07] LABS: Glucose - Point of Care 165 mg/dl (70-99)
[2024-05-11] MEDS: LANTUS 0.07 UNITS SC (21:09)
[2024-05-12] VITALS (8 sets, daily range): BP systolic 104–146; BP diastolic 59–84; PULSE 61–62; O2SAT 98
[2024-05-12 05:45] LABS: Glucose - Point of Care 150 mg/dl (70-99)
[2024-05-12] MEDS: NOVOLOG FLEXPEN-MODERATE RESISTANCE 1 UNITS SC ×3 (05:49→17:32)
[2024-05-12] MEDS: PROTONIX 20 MG PO (08:10)
[2024-05-12] MEDS: KEPPRA 500 MG PO ×2 (08:10→21:39)
[2024-05-12] MEDS: TOPROL XL 25 MG PO (08:10)
[2024-05-12] MEDS: LOW STRENGTH ASPIRIN 81 MG PO (08:11)
[2024-05-12] MEDS: ZESTRIL 5 MG PO (08:11)
[2024-05-12 09:02] LABS: ANA, IgG Reflex to HEp-2 None Detected (None Detected)
[2024-05-12 11:39] LABS: Glucose - Point of Care 151 mg/dl (70-99)
[2024-05-12] MEDS: TYLENOL 650 MG PO (11:47)
--- NOTE | 2024-05-12 12:27 | W.PN.NEURO.1 ---
Today's Communication / Plan
-
.
Neuro Assessment/Plan
Assessment
This is a 63-year-old male who presented to on 05/01/24 with report of confusion, aphasia, and left sided hemiparesis. He was outside of the time window for TNK/IAT.
05/04/24 AMS, patient obtunded. Febrile to 101.2 and exam concerning for seizure. Keppra initiated.
-CTA head/neck 05/01/24: There is absent flow/occlusion in the right anterior cerebral artery beyond the A2 segment of the right anterior cerebral artery with absent flow in the proximal portions of the right callosal marginal and pericallosal
arteries with cross filling of distal pericallosal branches.
-MRI brain 05/02/24: LARGE 8.6 cm ACUTE ISCHEMIC INFARCT in the ANTEROMEDIAL RIGHT FRONTAL LOBE (right anterior cerebral artery territory) containing severe cytotoxic edema. Multiple small chronic infarcts in the white matter of both frontal lobes.
Small chronic lacunar infarcts in the basal ganglia. Severe white matter leukoaraiosis in the frontal and parietal lobes. Mild Wallerian degeneration in the right side of the midbrain and lisa. Moderate diffuse cerebral and cerebellar volume loss.
-EEG 05/05/24: This EEG is abnormal due to the presence of diffuse lowing to ~7Hz frequencies consistent with mild diffuse cerebral dysfunction, nonspecific in etiology.. The study was limited frequently by movement artifact and artifact from the
patient attempting to remove leads. From what was visible beneath the frequent artifact, no clear seizures were seen.
I. Large R REMI territory ischemic infarct in the setting of R A2 REMI occlusion. Etiology possibly cardioembolic.
II. Likely seizure and fever of unknown origin in the setting of large ischemic infarct producing change in mental status over the past few days, now improving.
III. Multiple old chronic infarcts.
IV. NIDDM.
V. HLD
. HTN
Plan
-Continue Keppra 500mg IV q12hrs.
-Continue DAPT with aspirin 81mg daily and Plavix 75mg daily for 21 days. After 21 days, stop Plavix and continue aspirin 81mg daily only, indefinitely.
-Goal normotension.
-Goal normothermia.
-Monitor on telemetry, consider outpatient Holter monitoring.
-LDL goal <70. LDL is 147. Continue atorvastatin 80mg daily.
-Goal normoglycemia, hbA1c is 8.9.
-NIHSS and neurological checks per unit guidelines.
-Patient provided with a stroke education packet.
-PT/OT/ST evaluations.
-DVT prophylaxis.
-Patient should follow-up with Neurology in 4-6 weeks, may see the MECHANIC WELDER or one of the physicians.
Subjective/Objective
Subjective Data
Date of Service: May 12, 2024
Neurology follow-up note
24h events: normotensive, afebrile. Mr. Varghese was noted to talk less today.
ILR-pending.
No labs to review.
DIAMANTE(05/10/2024)-no evidence of cardioembolism.
Routine EEG(05/10/2024) diffuse slowing to ~7Hz.
CT head wo contrast(05/11/2024) Continued evolution of right REMI territory infarct without evidence of hemorrhagic conversion. Interval decrease in edema as evidenced by decreased sulcal effacement and regional mass effect. There is no significant
midline shift. Continued evolution of the infarct involving the parks radiata of the right parietal lobe without hemorrhagic conversion. Infarct involving the left cerebellar hemisphere seen on recent MR is not appreciated on the current
examination.
Brain MRI wo indira(05/02/2024) acute R REMI infarct with edema, multiple chronic periventricular white matter infarcts in the frontal lobes measuring 5 mm in size in the right frontal lobe and 6.4 mm in size in the left frontal lobe. There is a 5.9 mm
chronic infarct in the periventricular right frontal lobe and right basal ganglia. There is a 4.5 mm chronic infarct in the superior right basal ganglia. There is a 6.7 mm chronic lacunar infarct in the left basal ganglia; severe white matter
leukoaraiosis in the frontal and parietal lobes.
Small central disc herniation at C2/C3 causing mild spinal cord compression and central canal stenosis.
Moderate diffuse cerebral and cerebellar volume loss
Brain MRI wo indira(05/09/2024) acute/subacute right ICA infarct with hemorrhagic conversion, new acute to subacute R parks radiata and L inferior left cerebellar hemisphere.
CTA head/neck(05/01/2024)no evidence of intracranial or extracranial stenosis.
TTE(05/02/2024)-no evidence of PFO, ASA
PMH: type II DM, DLP, BPH, chronic prostatitis, elevated PSA, ?Asperger syndrome
PSH: prostate biopsy
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
All:PNC
ROS: Positive for mild headache, negative for ear pain, tinnitus.
General: Well developed. In no acute distress.
Cardio: Regular rate . Extremities are without cyanosis or edema.
Neuro:
Mental Status: Awake, nods appropriately. Follows simple requests consistently. Increased processing time. No verbal output.
CN: Orthophoric primary gaze. Pupils�3 mm, reactive. Extraocular movement intact. Left facial weakness. Hearing is preserved. No dysarthria.
Motor: spastic hemiplegia on the left (tripple flexion in the left lower extremity). RLE drift. Right upper extremity�antigravity
Reflexes: Limited exam due to increased motor tone
Coordination: No tremors or myoclonic movements
Gait: Nonambulatory.
Assessment and Plan:
I. Acute R REMI with hemorrhagic conversion and edema(improved)
II. Acute R MCA and Left SCA territory strokes. Likely etiology-embolic.
III. Vacular/metabolic encephalopathy, clinically worse
V. Leukoaraiosis
. 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
-f/u Leukoencephalopathy blood work
-Continue ASA 81mg QD. No need for DAPT due to high NIH stroke score.
-Lipitor 80 mg QHS.
-CBC, COMP
-ILR.
-Wean off Keppra as OP
-DVT prophylaxis.
-OP Neurology follow up in 2-3 weeks
I personally reviewed all radiology and labs along with past medical records pertinent to current medical problems. Total time spent in patient care is 35 minutes.
Thank you for allowing us to participate in the care of this patient. Please do not hesitate to contact us with any questions or concerns.
Objective Data
Vital Signs
Temp Pulse Resp BP Pulse Ox
36.9 C 64 16 127/76 96
05/12/24 02:56 05/12/24 12:23 05/12/24 12:23 05/12/24 12:23 05/12/24 12:23
Lab Results
05/10/24 06:00
05/10/24 10:32
PT 12.5 Sec (11.4-14.6) 05/01/24 21:36
INR 0.96 05/01/24 21:36
APTT 25.0 Sec (23.4-35.0) 05/01/24 21:36
Sodium 137 mmol/L (135-145) 05/10/24 10:32
Potassium 4.5 mmol/L (3.5-5.1) 05/10/24 10:32
BUN 22 mg/dl (9-20) H 05/10/24 10:32
Glucose 218 mg/dl (70-99) H 05/10/24 10:32
Calcium 9.2 mg/dl (8.4-10.2) 05/10/24 10:32
LDL Cholesterol Direct 147 mg/dl 05/02/24 05:32
LDL Cholesterol, Calc mg/dl 05/02/24 05:32
Ur Buprenorphine Negative (Negative) 05/10/24 00:23
Patient Allergies
Penicillins Allergy (Verified 05/01/24 21:59)
Unknown
Vital Signs and Labs
-
Vital Signs and Labs:
Vital Signs
Temp Pulse Resp BP Pulse Ox
36.9 C 64 16 127/76 96
05/12/24 02:56 05/12/24 12:23 05/12/24 12:23 05/12/24 12:23 05/12/24 12:23
Lab Results
05/10/24 06:00
05/10/24 10:32
PT 12.5 Sec (11.4-14.6) 05/01/24 21:36
INR 0.96 05/01/24 21:36
APTT 25.0 Sec (23.4-35.0) 05/01/24 21:36
Sodium 137 mmol/L (135-145) 05/10/24 10:32
Potassium 4.5 mmol/L (3.5-5.1) 05/10/24 10:32
BUN 22 mg/dl (9-20) H 05/10/24 10:32
Glucose 218 mg/dl (70-99) H 05/10/24 10:32
Calcium 9.2 mg/dl (8.4-10.2) 05/10/24 10:32
LDL Cholesterol Direct 147 mg/dl 05/02/24 05:32
LDL Cholesterol, Calc mg/dl 05/02/24 05:32
Ur Buprenorphine Negative (Negative) 05/10/24 00:23
Medications
-
Medications:
Generic Name Dose Route Start Last Admin
Trade Name Freq PRN Reason Stop Dose Admin
Acetaminophen 650 mg 05/02/24 00:45 05/04/24 10:40
Acetaminophen 650 Mg Rectal Suppository RECTAL 05/30/24 00:44 650 mg
Q4HPRN PRN Administration
HARRIS, mild pain, or temp >100.4F
Acetaminophen 650 mg 05/02/24 00:45 05/12/24 11:47
Acetaminophen 325 Mg Tablet PO 05/30/24 00:44 650 mg
Q4HPRN PRN Administration
HARRIS, mild pain, or temp >100.4F
Aspirin 81 mg 05/02/24 10:00 05/12/24 08:11
Aspirin 81 Mg Chewable Tablet PO 05/30/24 09:59 81 mg
DAILY HO Administration
Atorvastatin Calcium 80 mg 05/02/24 18:00 05/11/24 17:35
Atorvastatin (Lipitor) 80 Mg Tablet PO 05/30/24 17:59 80 mg
QPM HO Administration
Dextrose 12.5 grams 05/02/24 00:45
Dextrose 50% (0.5 Grams/Ml) 50 Ml Syringe IV 05/30/24 00:44
[id number] PRN
hypoglycemia
Protocol
Glucagon 1 mg 05/02/24 00:45
Glucagon 1 Mg Vial IM 05/30/24 00:44
PRN PRN
hypoglycemia
Protocol
Insulin Glargine 7 units/ 0.07 mls @ 0 mls/hr 05/10/24 22:00 05/11/24 21:09
Device SC 06/07/24 21:59 0.07 mls
HS HO Administration
As Directed
Insulin Aspart 0 units 05/12/24 06:00 05/12/24 05:49
Insulin Aspart Moderate Resistance 300 Units/3 Ml Pen.Injctr SC 06/09/24 05:59 1 units
Q6 HO Administration
Protocol
Levetiracetam 500 mg 05/09/24 20:00 05/12/24 08:10
Levetiracetam 500 Mg Regular Release Tablet PO 06/06/24 19:59 500 mg
BID HO Administration
Lisinopril 5 mg 05/03/24 11:00 05/12/24 08:11
Lisinopril 5 Mg Tablet PO 05/31/24 10:59 5 mg
DAILY HO Administration
Loratadine 10 mg 05/08/24 08:00
Loratadine 10 Mg Tablet PO 06/05/24 07:59
BIDPRN PRN
ALLERGY SYMPTOMS
Metoprolol Succinate 25 mg 05/04/24 08:00 05/12/24 08:10
Metoprolol 25 Mg Extended Release Tablet PO 06/01/24 07:59 25 mg
DAILY HO Administration
Pantoprazole Sodium 20 mg 05/02/24 15:00 05/12/24 08:10
Pantoprazole 20 Mg Delayed Release Tablet PO 05/30/24 14:59 20 mg
DAILY HO Administration
Pioglitazone HCl 15 mg 05/03/24 11:00 05/04/24 11:28
Pioglitazone Hcl 15 Mg Tablet PO 05/31/24 10:59 Not Given
DAILY HO
Sodium Chloride 0 flush 05/01/24 23:00
Sodium Chloride 0.9% (Flush) Syringe IV 05/29/24 22:59
PER PROTOCOL HO
Home Medications
-
Home Medications
furosemide 20 mg tablet (Lasix) 20 mg PO DAILY 05/01/24
pioglitazone 15 mg tablet (Actos) 15 mg PO DAILY 05/01/24
rosuvastatin 40 mg tablet (Crestor) 40 mg PO DAILY 05/01/24
azelastine 137 mcg (0.1 %) nasal spray 1 spray intranasal BID 05/10/24
glipizide 10 mg tablet 10 mg PO DAILY 05/10/24
metformin 500 mg tablet 500 mg PO BID 05/10/24
--- NOTE | 2024-05-12 12:56 | W.PN.CD ---
Today's Communication / Plan
-
- ILR today
Impression / Plan
-
Stroke:
-this diagnosis is threat to bodily function
-Head CT: There is 8.5 cm subacute nonhemorrhagic right middle cerebral artery infarct with cytotoxic edema and mass effect with compression of the underlying ventricle and effacement of the overlying sulci. There is 15 mm lacunar infarct involving
the head of the caudate and anterior limb of the internal capsule and the right. There is a 20 mm lacunar infarct involving the head of the caudate, anterior limb of the internal capsule and lentiform nucleus on the left. There is moderate diffuse
cortical atrophy with nonspecific white matter changes as described above.
-Brain MRI: Signal abnormality involving the previously seen right anterior cerebral artery infarct. There has been interval development of decreased T2 gradient-echo signal within this area of infarction, suggesting hemosiderin deposition from a
component of hemorrhage. MRI is very sensitive for hemorrhage, and this may represent microscopic hemorrhage. If evaluation for a component of macroscopic hemorrhage is desired, consider a follow-up CT of the head. New foci of acute to subacute
infarction involving the parks radiata of the right parietal lobe and the anterior and inferior left cerebellar hemisphere.
-On ASA, plavix, statin
-tele stable without arrhythmia. Echo unremarkable.
- DIAMANTE was unremarkable no PFO appreciated
- ILR consent obtained from his sister on the phone.
HTN:
-better with ACEI/BB addition
HLD:
-LDL 147
-now on statin
DM:
-hgbA1C 8.9
-management per primary
Physical Exam
Vital Signs/Labs
Vital Signs
Temp Pulse Resp BP Pulse Ox
98.4 F 64 16 127/76 96
05/12/24 02:56 05/12/24 12:23 05/12/24 12:23 05/12/24 12:23 05/12/24 12:23
PT 12.5 Sec (11.4-14.6) 05/01/24 21:36
INR 0.96 05/01/24 21:36
APTT 25.0 Sec (23.4-35.0) 05/01/24 21:36
Magnesium 1.9 mg/dl (1.6-2.3) 05/02/24 05:32
Triglycerides 469 mg/dl (10-149) H 05/02/24 05:32
LDL Cholesterol, Calc mg/dl 05/02/24 05:32
VLDL Cholesterol, Calc mg/dl (0-30) 05/02/24 05:32
HDL Cholesterol 41 mg/dl 05/02/24 05:32
Physical Exam
Constitutional: No acute distress and Comfortable
EENT: Anicteric and Moist mucous membranes
Cardiovascular: Rhythm & rate is regular, Pedal edema is absent and Systolic murmur absent
Respiratory: Respiratory effort normal, Lungs clear to auscul. and Wheeze Absent
GI: Soft, Non tender and Normal bowel sounds
Data Reviewed
-
Date of Service: May 12, 2024
Medical Decision Making: Reviewed Test Results, Test Interpretation and Review of Case with other Provider
EKG: Tracing Personally Visualized and interpreted
Echo: Report Reviewed by me
Medical Tests (PFT, Pathology etc): Discussed with Physician, Discussed with Patient and Discussed with Family
Labs: Labs Reviewed by me
Old Records: Reviewed
--- NOTE | 2024-05-12 13:05 | CM ---
Patient seen at bedside, pending pm&r assessment. Patient will need auth pending bed availability at [facility] vs Acute Rehab. Awaiting updates. CM will continue to follow for discharge planning needs.
Plan; snf vs acute rehab; patient will need auth when medical treatment plan is confirmed.
[2024-05-12 13:33] LABS: % Basophils 0.6 % (0-2); % Eosinophils 1.4 % (0-6); % Immature Granulocytes 0.5 % (0-0.5); % Lymphocytes 11.7 % (20.5-51.1); % Monocytes 8.8 % (1.7-9.3); Absolute Eosinophils 0.1 10^3/uL (0-0.7); Absolute Lymphocytes 0.8 10^3/uL (1.2-3.4); Absolute Monocytes 0.6 10^3/uL (0.1-0.6); Absolute Neutrophils 5.1 10^3/uL (1.4-6.5); Hematocrit 46.3 % (39.0-52.0); Hemoglobin 15.3 g/dL (13.0-18.0); Mean Corpuscular Hgb 28.2 pg (27.0-31.0); Mean Corpuscular Volume 85.3 fL (80.0-94.0); Mean Platelet Volume 11.5 fL (7.4-10.4); Nucleated Red Blood Cells % 0 % (-); Platelet Count 222 10^3/uL (130-400); Red Blood Cell Count 5.43 10^6/uL (4.70-6.10); Red Cell Dist. Width 12.9 % (11.5-14.5); White Blood Cell Count 6.6 10^3/uL (4.8-10.8)
[2024-05-12 13:54] LABS: ALT (SGPT) 25 U/L (0-50); AST (SGOT) 30 U/L (17-59); Alkaline Phosphatase 102 U/L (38-126); Blood Urea Nitrogen 26 mg/dl (9-20); Calcium 9.5 mg/dl (8.4-10.2); Carbon Dioxide 20 mmol/L (22-30); Chloride 102 mmol/L (98-107); Estimated Creatinine Clearance 65 ml/min; Glucose 186 mg/dl (70-99); Potassium 4.5 mmol/L (3.5-5.1); Sodium 138 mmol/L (135-145); Total Bilirubin 0.7 mg/dl (0.2-1.3); Total Protein 6.7 g/dl (6.3-8.2); eGFR > 60.00
--- NOTE | 2024-05-12 14:37 | ITS.CL.IMPLP ---
Housekeeping Coordinator - Implant Loop
Implant Loop
Procedure Report:
Procedure: Insertion of Loop Recorder.�
Date of the procedure: 05/12/2024
Procedure Physician: Evita Thorne MD [facility]
Indication: Cryptogenic stroke
Description of the procedure:
Patient was brought to the holding area after informed consent was obtained from the patient. The time-out was performed immediately before the procedure.
The left parasternal chest area was prepped and draped in sterile fashion with chlorhexidine prep x 3 times. Lidocaine 1% was injected subcutaneously for local anesthesia. The loop recorder was tunneled and then injected into the subcutaneous
tissue. The tunneling tool was removed leaving the loop recorder in place. The dermis was closed with steristrips and a pressure Tegaderm dressing was placed. There were no immediate complications.
Post procedure, the device was interrogated and showed good detectable P and R waves.
There were no immediate complications.
Device:
LINQII; Model: [id number]; Serial #:[id number]
R wave amplitude: 0.4 mV
Final Programming:
��������������� Tachycardia Detection: >182 bpm for 16 beats
��������������� Bradycardia Detection: 30 bpm for 12 beats, Asystole for 5 seconds.
��������������� Atrial fibrillation detection: On with > 10 min duration
Conclusion:
Successful insertion of loop recorder.
Recommendation:
Routine post-insert loop care.
--- NOTE | 2024-05-12 16:22 | W.PN.HOSP.TC ---
Today's Communication/Plan
-
PT
Supportive care.
ILR placement
Assessment / Plan
Assessment / Plan
Impression:
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
Fever
History of multiple CVA
Essential hypertension
NIDDM.
Asperger syndrome reported
Plan:
Acute likely embolic multifocal CVA.
MRI of the brain:
1. LARGE 8.6 cm ACUTE ISCHEMIC INFARCT in the ANTEROMEDIAL RIGHT FRONTAL LOBE (right anterior cerebral artery territory) containing severe cytotoxic edema.
2. Multiple small chronic infarcts in the white matter of both frontal lobes.
3. Small chronic lacunar infarcts in the basal ganglia.
4. Severe white matter leukoaraiosis in the frontal and parietal lobes.
5. Mild Wallerian degeneration in the right side of the midbrain and lisa.
6. Moderate diffuse cerebral and cerebellar volume loss.
CTA
There is absent flow/occlusion in the right anterior cerebral artery beyond the A2 segment of the right anterior cerebral artery with absent flow in the proximal portions of the right callosal marginal and pericallosal arteries with cross filling of
distal pericallosal branches
Risk factors dyslipidemia/LDL 147
Diabetes
ECG NSR/sinus tach. No known history of arrhythmias.
Echocardiogram with preserved ventricular function and no evidence for cardioembolic source
Found not to be a candidate for thrombolytics given unknown time of onset of symptoms/duration.
Initiated on dual antiplatelet therapy: Aspirin�Plavix. For 21 days with aspirin on day 22.
Statin.
Repeat MRI 05/09 with new foci of acute to subacute infarction involving parks radiata of the right parietal lobe and anterior and inferior left cerebral hemisphere.
In addition there is a hemorrhagic component at the right REMI infarct territory
MRV negative for thrombosis
DIAMANTE 05/10 with no evidence of cardioembolic source.
Initially on DAPT with aspirin and Plavix, although with concern for hemorrhagic conversion as well as no evidence of intracranial stenosis on imaging Plavix had been discontinued on 05/09
Clinical concern for embolic CVA, although no documented arrhythmia on presentation and ongoing telemetry. May require outpatient cardiac monitoring.
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
Concern for subclinical seizures given persistent lethargy
Repeated EEG with no epileptic activity.
Continue Keppra 5 mg every 12 hours
Continue to monitor mental status closely
Aspiration risk.
Speech evaluation daily including VSE on 05/06
Aspiration precautions
Initiated on modified diet.
New onset of fever 05/03 - 05/04.
Lethargic.
Concern for evolving infection/sepsis: At risk for aspiration, UTI
Sepsis workup with negative
Initiated empiric antibiotics discontinued on 05/05
Keep n.p.o. while awaiting oral medications with caution.
Essential hypertension
Adjust antihypertensive regimen with increased dose of Toprol and addition of lisinopril.
Type 2 diabetes
Hemoglobin A1c 8.9
Given persistent neurologic deficiencies hold oral glucose lowering medication
Continue basal bolus protocol
Initiated on Lantus. Continue dose adjustment.
Anticipated Discharge: > 48 hours
Anticipated Discharge: 24 - 48 hours
Subjective/Interval History
-
Date of Service: May 12, 2024
Objective Data
-
Labs:
Laboratory Results
05/12/24
13:20
WBC 6.6
Hgb 15.3
Hct 46.3
Plt Count 222
Sodium 138
Potassium 4.5
Chloride 102
Carbon Dioxide 20 L
BUN 26 H
Creatinine 1.3
Glucose 186 H
Calcium 9.5
Total Bilirubin 0.7
AST 30
ALT 25
Alkaline Phosphatase 102
Vital Signs:
Vital Signs
Temp Pulse Resp BP Pulse Ox
98.1 F 51 16 104/61 98
05/12/24 16:17 05/12/24 16:17 05/12/24 16:17 05/12/24 16:17 05/12/24 16:17
I&O
05/11/24 05/12/24 05/13/24
06:59 06:59 06:59
Intake Total 720 / 720 250 / 250
Balance 720 / 720 250 / 250
Physical Exam
-
General: Well Nourished, No Apparent Distress and Comfortable
HEENT: Normocephalic, Atraumatic and Moist Mucous Membranes
Respiratory: Clear to Auscultation and Non Labored Respirations; Negative Wheezes, Rales or Rhonchi
Cardiac: Regular Rhythm and S1/S2; Negative Murmur, Rub or Gallop
GI: Soft, Nontender, Nondistended and Normal Bowel Sounds
Musculoskeletal: No Clubbing, No Cyanosis and No Edema
Skin: Warm and Dry; Negative Rash
Neuro: Central Nerve's Intact and Other (Flaccid paralysis to the left extremities, upgoing Babinski on left)
Psych: Calm
[2024-05-12 17:32] LABS: Glucose - Point of Care 183 mg/dl (70-99)
[2024-05-12] MEDS: LIPITOR 80 MG PO (17:32)
[2024-05-12 21:21] LABS: Glucose - Point of Care 151 mg/dl (70-99)
[2024-05-12] MEDS: LANTUS 0.07 UNITS SC (21:40)
[2024-05-12 23:22] LABS: Myeloperoxidase Antibody 0 AU/mL (0-19); Serine Protease-3, IgG 0 AU/mL (0-19)
[2024-05-13] VITALS (8 sets, daily range): BP systolic 105–150; BP diastolic 64–87; PULSE 68
[2024-05-13 07:37] LABS: Glucose - Point of Care 120 mg/dl (70-99)
[2024-05-13] MEDS: NOVOLOG FLEXPEN-MODERATE RESISTANCE SC ×2 (07:52→12:16)
[2024-05-13] MEDS: ZESTRIL 5 MG PO (07:54)
[2024-05-13] MEDS: PROTONIX 20 MG PO (07:54)
[2024-05-13] MEDS: KEPPRA 500 MG PO ×2 (07:54→20:03)
[2024-05-13] MEDS: LOW STRENGTH ASPIRIN 81 MG PO (07:55)
[2024-05-13] MEDS: TOPROL XL 25 MG PO (07:55)
[2024-05-13] MEDS: CLARITIN 10 MG PO (11:17)
[2024-05-13 11:29] LABS: Glucose - Point of Care 150 mg/dl (70-99)
--- NOTE | 2024-05-13 14:41 | W.PN.NEURO.1 ---
Today's Communication / Plan
-
.
Subjective/Objective
Subjective Data
Date of Service: May 13, 2024
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 He was noted to have labile mood.
According to patient's cousin the patient reportedly had progressive cognitive changes over the last several years. He was noted to have difficulties with organization and challenges managing his finances she has gave up and send that he was
actively involved in. His sister does have
multiple sclerosis
PMH: type II DM, DLP, BPH, chronic prostatitis, elevated PSA, ?Asperger syndrome
PSH: prostate biopsy
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
FH: sister-multiple sclerosis.
All:PNC
ROS: Positive for mild headache, negative for ear pain, tinnitus.
General: Well developed. In no acute distress.
Cardio: Regular rate . Extremities are without cyanosis or edema.
Neuro:
Mental Status: Awake, nods appropriately. Follows simple requests consistently. Increased processing time. Mute
CN: Orthophoric primary gaze. Pupils�3 mm, reactive. Extraocular movement intact. Left facial weakness. Hearing is preserved. No dysarthria.
Motor: spastic hemiplegia on the left (tripple flexion in the left lower extremity). RLE drift. Right upper extremity�antigravity
Reflexes: Limited exam due to increased motor tone
Coordination: No tremors or myoclonic movements
Gait: Nonambulatory.
Assessment and Plan:
I. Acute R REMI with hemorrhagic conversion and edema(improved)
II. Acute R MCA and Left SCA territory strokes. Likely etiology-embolic.
III. Vacular/metabolic encephalopathy, clinically worse
V. Leukoaraiosis
. 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
-Continue ASA 81mg QD. No need for DAPT due to high NIH stroke score.
-Lipitor 80 mg QHS.
-Wean off Keppra as OP
-Speech therapy
-May consider MS work up as OP
-DVT prophylaxis.
-OP Neurology follow up in 1-2 weeks
I personally reviewed all radiology and labs along with past medical records pertinent to current medical problems. Total time spent in patient care is 35 minutes.
Thank you for allowing us to participate in the care of this patient. Please do not hesitate to contact us with any questions or concerns
Objective Data
Vital Signs
Temp Pulse Resp BP Pulse Ox
36.6 C 68 18 147/83 96
05/13/24 11:00 05/13/24 11:00 05/13/24 11:00 05/13/24 11:00 05/13/24 11:00
Lab Results
05/12/24 13:20
05/12/24 13:20
PT 12.5 Sec (11.4-14.6) 05/01/24 21:36
INR 0.96 05/01/24 21:36
APTT 25.0 Sec (23.4-35.0) 05/01/24 21:36
Sodium 138 mmol/L (135-145) 05/12/24 13:20
Potassium 4.5 mmol/L (3.5-5.1) 05/12/24 13:20
BUN 26 mg/dl (9-20) H 05/12/24 13:20
Glucose 186 mg/dl (70-99) H 05/12/24 13:20
Calcium 9.5 mg/dl (8.4-10.2) 05/12/24 13:20
LDL Cholesterol Direct 147 mg/dl 05/02/24 05:32
LDL Cholesterol, Calc mg/dl 05/02/24 05:32
Ur Buprenorphine Negative (Negative) 05/10/24 00:23
Patient Allergies
Penicillins Allergy (Verified 05/01/24 21:59)
Unknown
Vital Signs and Labs
-
Vital Signs and Labs:
Vital Signs
Temp Pulse Resp BP Pulse Ox
36.7 C 76 16 135/80 94
05/14/24 11:45 05/14/24 11:45 05/14/24 11:45 05/14/24 11:45 05/14/24 11:45
Lab Results
05/12/24 13:20
05/12/24 13:20
PT 12.5 Sec (11.4-14.6) 05/01/24 21:36
INR 0.96 05/01/24 21:36
APTT 25.0 Sec (23.4-35.0) 05/01/24 21:36
Sodium 138 mmol/L (135-145) 05/12/24 13:20
Potassium 4.5 mmol/L (3.5-5.1) 05/12/24 13:20
BUN 26 mg/dl (9-20) H 05/12/24 13:20
Glucose 186 mg/dl (70-99) H 05/12/24 13:20
Calcium 9.5 mg/dl (8.4-10.2) 05/12/24 13:20
LDL Cholesterol Direct 147 mg/dl 05/02/24 05:32
LDL Cholesterol, Calc mg/dl 05/02/24 05:32
Ur Buprenorphine Negative (Negative) 05/10/24 00:23
Medications
-
Medications:
Generic Name Dose Route Start Last Admin
Trade Name Freq PRN Reason Stop Dose Admin
Acetaminophen 650 mg 05/02/24 00:45 05/04/24 10:40
Acetaminophen 650 Mg Rectal Suppository RECTAL 05/30/24 00:44 650 mg
Q4HPRN PRN Administration
HARRIS, mild pain, or temp >100.4F
Acetaminophen 650 mg 05/02/24 00:45 05/12/24 11:47
Acetaminophen 325 Mg Tablet PO 05/30/24 00:44 650 mg
Q4HPRN PRN Administration
HARRIS, mild pain, or temp >100.4F
Aspirin 81 mg 05/02/24 10:00 05/14/24 07:58
Aspirin 81 Mg Chewable Tablet PO 05/30/24 09:59 81 mg
DAILY HO Administration
Atorvastatin Calcium 80 mg 05/02/24 18:00 05/13/24 17:33
Atorvastatin (Lipitor) 80 Mg Tablet PO 05/30/24 17:59 80 mg
QPM HO Administration
Dextrose 12.5 grams 05/02/24 00:45
Dextrose 50% (0.5 Grams/Ml) 50 Ml Syringe IV 05/30/24 00:44
[id number] PRN
hypoglycemia
Protocol
Glucagon 1 mg 05/02/24 00:45
Glucagon 1 Mg Vial IM 05/30/24 00:44
PRN PRN
hypoglycemia
Protocol
Insulin Glargine 7 units/ 0.07 mls @ 0 mls/hr 05/10/24 22:00 05/13/24 21:45
Device SC 06/07/24 21:59 0.07 mls
HS HO Administration
As Directed
Insulin Aspart 0 units 05/13/24 07:30 05/14/24 12:28
Insulin Aspart Moderate Resistance 300 Units/3 Ml Pen.Injctr SC 06/10/24 07:29 3 units
AC HO Administration
Protocol
Levetiracetam 500 mg 05/09/24 20:00 05/14/24 07:58
Levetiracetam 500 Mg Regular Release Tablet PO 06/06/24 19:59 500 mg
BID HO Administration
Lisinopril 5 mg 05/03/24 11:00 05/14/24 07:58
Lisinopril 5 Mg Tablet PO 05/31/24 10:59 5 mg
DAILY HO Administration
Loratadine 10 mg 05/08/24 08:00 05/13/24 11:17
Loratadine 10 Mg Tablet PO 06/05/24 07:59 10 mg
BIDPRN PRN Administration
ALLERGY SYMPTOMS
Metoprolol Succinate 25 mg 05/04/24 08:00 05/14/24 07:58
Metoprolol 25 Mg Extended Release Tablet PO 06/01/24 07:59 25 mg
DAILY HO Administration
Pantoprazole Sodium 20 mg 05/02/24 15:00 05/14/24 07:58
Pantoprazole 20 Mg Delayed Release Tablet PO 05/30/24 14:59 20 mg
DAILY HO Administration
Pioglitazone HCl 15 mg 05/03/24 11:00 05/04/24 11:28
Pioglitazone Hcl 15 Mg Tablet PO 05/31/24 10:59 Not Given
DAILY HO
Sodium Chloride 0 flush 05/01/24 23:00
Sodium Chloride 0.9% (Flush) Syringe IV 05/29/24 22:59
PER PROTOCOL HO
Home Medications
-
Home Medications
furosemide 20 mg tablet (Lasix) 20 mg PO DAILY 05/01/24
pioglitazone 15 mg tablet (Actos) 15 mg PO DAILY 05/01/24
rosuvastatin 40 mg tablet (Crestor) 40 mg PO DAILY 05/01/24
azelastine 137 mcg (0.1 %) nasal spray 1 spray intranasal BID 05/10/24
glipizide 10 mg tablet 10 mg PO DAILY 05/10/24
metformin 500 mg tablet 500 mg PO BID 05/10/24
--- NOTE | 2024-05-13 15:58 | CM ---
CM reviewed chart, spoke with patients sisterMerrill. PMR consult pending. CM awaiting to confirm with [facility] ability to accept patient, SNF reports they are trying to get under contact with patients insurance, can clinically accept patient.
Patient will require insurance auth. CM will continue to follow for all discharge planning needs.
Plan; Acute Rehab pending PMR re-consult vs SNF, awaiting confirmation from SNF on ability to accept patients insurance.
[2024-05-13 16:31] LABS: Glucose - Point of Care 178 mg/dl (70-99)
[2024-05-13] MEDS: NOVOLOG FLEXPEN-MODERATE RESISTANCE 1 UNITS SC (16:31)
--- NOTE | 2024-05-13 16:57 | W.PN.HOSP.TC ---
Today's Communication/Plan
-
Neurologic status had been with no new developments with dense left hemiparesis.
Remains on aspirin.
Diet has been adjusted with aspiration precautions.
ILR placed for outpatient monitoring.
Optimized for discharge to detention facility pending bed availability.
Assessment / Plan
Assessment / Plan
Impression:
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
Fever
History of multiple CVA
Essential hypertension
NIDDM.
Asperger syndrome reported
Plan:
Acute likely embolic multifocal CVA.
MRI of the brain:
1. LARGE 8.6 cm ACUTE ISCHEMIC INFARCT in the ANTEROMEDIAL RIGHT FRONTAL LOBE (right anterior cerebral artery territory) containing severe cytotoxic edema.
2. Multiple small chronic infarcts in the white matter of both frontal lobes.
3. Small chronic lacunar infarcts in the basal ganglia.
4. Severe white matter leukoaraiosis in the frontal and parietal lobes.
5. Mild Wallerian degeneration in the right side of the midbrain and lisa.
6. Moderate diffuse cerebral and cerebellar volume loss.
CTA
There is absent flow/occlusion in the right anterior cerebral artery beyond the A2 segment of the right anterior cerebral artery with absent flow in the proximal portions of the right callosal marginal and pericallosal arteries with cross filling of
distal pericallosal branches
Risk factors dyslipidemia/LDL 147
Diabetes
ECG NSR/sinus tach. No known history of arrhythmias.
Echocardiogram with preserved ventricular function and no evidence for cardioembolic source
Found not to be a candidate for thrombolytics given unknown time of onset of symptoms/duration.
Initiated on dual antiplatelet therapy: Aspirin�Plavix. For 21 days with aspirin on day 22.
Statin.
Repeat MRI 05/09 with new foci of acute to subacute infarction involving parks radiata of the right parietal lobe and anterior and inferior left cerebral hemisphere.
In addition there is a hemorrhagic component at the right REMI infarct territory
MRV negative for thrombosis
DIAMANTE 05/10 with no evidence of cardioembolic source.
Initially on DAPT with aspirin and Plavix, although with concern for hemorrhagic conversion as well as no evidence of intracranial stenosis on imaging Plavix had been discontinued on 05/09
Clinical concern for embolic CVA, although no documented arrhythmia on presentation and ongoing telemetry. May require outpatient cardiac monitoring.
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
Concern for subclinical seizures given persistent lethargy
Repeated EEG with no epileptic activity.
Continue Keppra 5 mg every 12 hours
Continue to monitor mental status closely
Aspiration risk.
Speech evaluation daily including VSE on 05/06
Aspiration precautions
Initiated on modified diet.
New onset of fever 05/03 - 05/04.
Lethargic.
Concern for evolving infection/sepsis: At risk for aspiration, UTI
Sepsis workup with negative
Initiated empiric antibiotics discontinued on 05/05
Keep n.p.o. while awaiting oral medications with caution.
Essential hypertension
Adjust antihypertensive regimen with increased dose of Toprol and addition of lisinopril.
Type 2 diabetes
Hemoglobin A1c 8.9
Given persistent neurologic deficiencies hold oral glucose lowering medication
Continue basal bolus protocol
Initiated on Lantus. Continue dose adjustment.
Anticipated Discharge: > 48 hours
Anticipated Discharge: 24 - 48 hours
Subjective/Interval History
-
Date of Service: May 13, 2024
Objective Data
-
Vital Signs:
Vital Signs
Temp Pulse Resp BP Pulse Ox
97.8 F 68 18 147/83 96
05/13/24 11:00 05/13/24 11:00 05/13/24 11:00 05/13/24 11:00 05/13/24 11:00
I&O
05/12/24 05/13/24 05/14/24
06:59 06:59 06:59
Intake Total 250 / 250 0 / 0
Balance 250 / 250 0 / 0
Physical Exam
-
General: Well Nourished, No Apparent Distress and Comfortable
HEENT: Normocephalic, Atraumatic and Moist Mucous Membranes
Respiratory: Clear to Auscultation and Non Labored Respirations; Negative Wheezes, Rales or Rhonchi
Cardiac: Regular Rhythm and S1/S2; Negative Murmur, Rub or Gallop
GI: Soft, Nontender, Nondistended and Normal Bowel Sounds
Musculoskeletal: No Clubbing, No Cyanosis and No Edema
Skin: Warm and Dry; Negative Rash
Neuro: Central Nerve's Intact and Other (Flaccid paralysis to the left extremities, upgoing Babinski on left)
Psych: Calm
[2024-05-13] MEDS: LIPITOR 80 MG PO (17:33)
[2024-05-13 21:37] LABS: Glucose - Point of Care 288 mg/dl (70-99)
[2024-05-13] MEDS: LANTUS 0.07 UNITS SC (21:45)
[2024-05-14 03:40] VITALS: BP 127/74
[2024-05-14 07:09] VITALS: BP 122/70
[2024-05-14 07:42] LABS: Glucose - Point of Care 167 mg/dl (70-99)
[2024-05-14] MEDS: KEPPRA 500 MG PO ×2 (07:58→19:40)
[2024-05-14] MEDS: TOPROL XL 25 MG PO (07:58)
[2024-05-14] MEDS: LOW STRENGTH ASPIRIN 81 MG PO (07:58)
[2024-05-14] MEDS: PROTONIX 20 MG PO (07:58)
[2024-05-14] MEDS: ZESTRIL 5 MG PO (07:58)
--- NOTE | 2024-05-14 08:18 | W.PN.HOSP.TC ---
Today's Communication/Plan
-
Neurologic status same.
Remains on Aspirin.
Continue modified diet.
Optimize for discharge to detention facility pending bed availability.
Assessment / Plan
Assessment / Plan
Physical Exam
General: Not in acute distress
HEENT: Normocephalic
Respiratory: Clear to Auscultation Bilaterally
Cardiac: Regular Rhythm and S1/S2
GI: Soft, Nontender, Nondistended and Normal Bowel Sounds
Musculoskeletal: No Cyanosis and No Edema
Skin: Warm and Dry
Neuro: Central Nerve's Intact and Other (Flaccid paralysis to the left extremities, upgoing Babinski on left)
Psych: Calm
Impression:
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
Dense left hemiparesis
Fever
History of multiple CVA
Essential hypertension
NIDDM.
Asperger syndrome reported
Plan:
Acute likely embolic multifocal CVA.
MRI of the brain:
1. LARGE 8.6 cm ACUTE ISCHEMIC INFARCT in the ANTEROMEDIAL RIGHT FRONTAL LOBE (right anterior cerebral artery territory) containing severe cytotoxic edema.
2. Multiple small chronic infarcts in the white matter of both frontal lobes.
3. Small chronic lacunar infarcts in the basal ganglia.
4. Severe white matter leukoaraiosis in the frontal and parietal lobes.
5. Mild Wallerian degeneration in the right side of the midbrain and lisa.
6. Moderate diffuse cerebral and cerebellar volume loss.
CTA
There is absent flow/occlusion in the right anterior cerebral artery beyond the A2 segment of the right anterior cerebral artery with absent flow in the proximal portions of the right callosal marginal and pericallosal arteries with cross filling of
distal pericallosal branches
Risk factors dyslipidemia/LDL 147
Diabetes
ECG NSR/sinus tach. No known history of arrhythmias.
Echocardiogram with preserved ventricular function and no evidence for cardioembolic source
Found not to be a candidate for thrombolytics given unknown time of onset of symptoms/duration.
Initiated on dual antiplatelet therapy: Aspirin�Plavix. For 21 days with aspirin on day 22.
Statin.
Repeat MRI 05/09 with new foci of acute to subacute infarction involving parks radiata of the right parietal lobe and anterior and inferior left cerebral hemisphere.
In addition there is a hemorrhagic component at the right REMI infarct territory
MRV negative for thrombosis
DIAMANTE 05/10 with no evidence of cardioembolic source.
Initially on DAPT with Aspirin and Plavix, although with concern for hemorrhagic conversion as well as no evidence of intracranial stenosis on imaging Plavix had been discontinued on 05/09
Clinical concern for embolic CVA, although no documented arrhythmia on presentation and ongoing telemetry. May require outpatient cardiac monitoring.
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
Concern for subclinical seizures given persistent lethargy
Repeated EEG with no epileptic activity.
Continue Keppra 5 mg every 12 hours
Continue to monitor mental status closely
Aspiration risk.
Speech evaluation daily including VSE on 05/06
Aspiration precautions
Initiated on modified diet.
New onset of fever 05/03 - 05/04.
Lethargic.
Concern for evolving infection/sepsis: At risk for aspiration, UTI
Sepsis workup with negative
Initiated empiric antibiotics but discontinued on 05/05
Keep IDDSI 6 diet and thin liquids while administering oral medications with caution.
Essential hypertension
Adjust antihypertensive regimen with increased dose of Toprol and addition of lisinopril.
Type 2 diabetes
Hemoglobin A1c 8.9
Given persistent neurologic deficiencies hold oral glucose lowering medication
Continue basal bolus protocol
Initiated on Lantus. Continue dose adjustment.
Anticipated Discharge: > 48 hours
Anticipated Discharge: > 48 hours
Subjective/Interval History
-
Date of Service: May 14, 2024
Patient was seen and examined. No new complaints/events reported.
Objective Data
-
Vital Signs:
Vital Signs
Temp Pulse Resp BP Pulse Ox
98.2 F 67 16 122/70 94
05/14/24 07:09 05/14/24 07:09 05/14/24 07:09 05/14/24 07:09 05/14/24 07:09
I&O
05/13/24 05/14/24 05/15/24
06:59 06:59 06:59
Intake Total 0 / 0 450 / 450
Balance 0 / 0 450 / 450
[2024-05-14] MEDS: NOVOLOG FLEXPEN-MODERATE RESISTANCE 1 UNITS SC (09:01)
[2024-05-14 11:45] VITALS: BP 135/80
[2024-05-14 12:04] LABS: Glucose - Point of Care 219 mg/dl (70-99)
[2024-05-14] MEDS: NOVOLOG FLEXPEN-MODERATE RESISTANCE 3 UNITS SC (12:28)
[2024-05-14 15:51] VITALS: BP 117/73
[2024-05-14 15:55] VITALS: BP 127/72; PULSE 63; O2SAT 95
[2024-05-14 16:52] LABS: Glucose - Point of Care 289 mg/dl (70-99)
[2024-05-14] MEDS: LIPITOR 80 MG PO (16:56)
[2024-05-14] MEDS: NOVOLOG FLEXPEN-MODERATE RESISTANCE 5 UNITS SC (16:56)
[2024-05-14 21:36] LABS: Glucose - Point of Care 229 mg/dl (70-99)
[2024-05-14] MEDS: LANTUS 0.09 UNITS SC (21:37)
[2024-05-14 23:27] VITALS: BP 126/78
[2024-05-15 03:18] VITALS: BP 119/75
[2024-05-15] MEDS: TOPROL XL 25 MG PO (07:33)
[2024-05-15] MEDS: PROTONIX 20 MG PO (07:33)
[2024-05-15] MEDS: ZESTRIL 5 MG PO (07:34)
[2024-05-15] MEDS: LOW STRENGTH ASPIRIN 81 MG PO (07:34)
[2024-05-15] MEDS: KEPPRA 500 MG PO ×2 (07:34→20:59)
[2024-05-15 07:50] LABS: Glucose - Point of Care 173 mg/dl (70-99)
[2024-05-15] MEDS: NOVOLOG FLEXPEN-MODERATE RESISTANCE 1 UNITS SC (08:07)
[2024-05-15 08:11] VITALS: BP 154/85
[2024-05-15 13:36] LABS: Glucose - Point of Care 207 mg/dl (70-99)
[2024-05-15] MEDS: NOVOLOG FLEXPEN-MODERATE RESISTANCE 3 UNITS SC ×2 (14:11→16:58)
[2024-05-15 15:24] VITALS: BP 133/72
[2024-05-15 16:05] VITALS: BP 128/70; PULSE 78
--- NOTE | 2024-05-15 16:11 | W.PN.HOSP.TC ---
Today's Communication/Plan
-
I spoke to case management today, waiting for SNF auth, also Dr. Blackman/Physiatry needs to see him for [facility] placement
Assessment / Plan
Assessment / Plan
Physical Exam
General: Not in acute distress
HEENT: Normocephalic
Respiratory: Clear to Auscultation Bilaterally
Cardiac: Regular Rhythm and S1/S2
GI: Soft, Nontender, Nondistended and Normal Bowel Sounds
Musculoskeletal: No Cyanosis and No Edema
Skin: Warm and Dry
Neuro: Central Nerve's Intact and Other (Flaccid paralysis to the left extremities, upgoing Babinski on left)
Psych: Calm
Impression:
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
Dense left hemiparesis
Fever
History of multiple CVA
Essential hypertension
NIDDM.
Asperger syndrome reported
Plan:
Acute likely embolic multifocal CVA.
MRI of the brain:
1. LARGE 8.6 cm ACUTE ISCHEMIC INFARCT in the ANTEROMEDIAL RIGHT FRONTAL LOBE (right anterior cerebral artery territory) containing severe cytotoxic edema.
2. Multiple small chronic infarcts in the white matter of both frontal lobes.
3. Small chronic lacunar infarcts in the basal ganglia.
4. Severe white matter leukoaraiosis in the frontal and parietal lobes.
5. Mild Wallerian degeneration in the right side of the midbrain and lisa.
6. Moderate diffuse cerebral and cerebellar volume loss.
CTA
There is absent flow/occlusion in the right anterior cerebral artery beyond the A2 segment of the right anterior cerebral artery with absent flow in the proximal portions of the right callosal marginal and pericallosal arteries with cross filling of
distal pericallosal branches
Risk factors dyslipidemia/LDL 147
Diabetes
ECG NSR/sinus tach. No known history of arrhythmias.
Echocardiogram with preserved ventricular function and no evidence for cardioembolic source
Found not to be a candidate for thrombolytics given unknown time of onset of symptoms/duration.
Initiated on dual antiplatelet therapy: Aspirin�Plavix. For 21 days with aspirin on day 22.
Statin.
Repeat MRI 05/09 with new foci of acute to subacute infarction involving parks radiata of the right parietal lobe and anterior and inferior left cerebral hemisphere.
In addition there is a hemorrhagic component at the right REMI infarct territory
MRV negative for thrombosis
DIAMANTE 05/10 with no evidence of cardioembolic source.
Initially on DAPT with Aspirin and Plavix, although with concern for hemorrhagic conversion as well as no evidence of intracranial stenosis on imaging Plavix had been discontinued on 05/09
Clinical concern for embolic CVA, although no documented arrhythmia on presentation and ongoing telemetry. May require outpatient cardiac monitoring.
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
Concern for subclinical seizures given persistent lethargy
Repeated EEG with no epileptic activity.
Continue Keppra 5 mg every 12 hours
Continue to monitor mental status closely
Aspiration risk.
Speech evaluation daily including VSE on 05/06
Aspiration precautions
Initiated on modified diet.
New onset of fever 05/03 - 05/04.
Lethargic.
Concern for evolving infection/sepsis: At risk for aspiration, UTI
Sepsis workup with negative
Initiated empiric antibiotics but discontinued on 05/05
Keep IDDSI 6 diet and thin liquids while administering oral medications with caution.
Essential hypertension
Adjust antihypertensive regimen with increased dose of Toprol and addition of lisinopril.
Type 2 diabetes
Hemoglobin A1c 8.9
Given persistent neurologic deficiencies hold oral glucose lowering medication
Continue basal bolus protocol
Initiated on Lantus. Continue dose adjustment to try to maintain glucose 140 to 180.
Anticipated Discharge: > 48 hours
Anticipated Discharge: 24 - 48 hours
Subjective/Interval History
-
Date of Service: May 15, 2024
Patient was seen and examined. No new events reported.
Objective Data
-
Vital Signs:
Vital Signs
Temp Pulse Resp BP Pulse Ox
98.2 F 88 18 154/85 93
05/15/24 08:11 05/15/24 08:11 05/15/24 08:11 05/15/24 08:11 05/15/24 08:11
I&O
05/14/24 05/15/24 05/16/24
06:59 06:59 06:59
Intake Total 450 / 450 590 / 590
Output Total 100 / 100
Balance 450 / 450 490 / 490
[2024-05-15 16:58] LABS: Glucose - Point of Care 236 mg/dl (70-99)
[2024-05-15] MEDS: LIPITOR 80 MG PO (16:58)
[2024-05-15 19:30] VITALS: BP 120/50
[2024-05-15 21:23] LABS: Glucose - Point of Care 147 mg/dl (70-99)
[2024-05-15] MEDS: LANTUS 0.09 UNITS SC (21:41)
[2024-05-15 23:00] VITALS: BP 149/86
[2024-05-16 07:33] VITALS: BP 135/85
[2024-05-16 08:00] LABS: Hematocrit 45.6 % (39.0-52.0); Hemoglobin 15.9 g/dL (13.0-18.0); Mean Corp Hgb Conc. 34.9 g/dL (33.0-37.0); Mean Corpuscular Hgb 29.8 pg (27.0-31.0); Mean Corpuscular Volume 85.4 fL (80.0-94.0); Mean Platelet Volume 12.1 fL (7.4-10.4); Platelet Count 197 10^3/uL (130-400); Red Blood Cell Count 5.34 10^6/uL (4.70-6.10); Red Cell Dist. Width 12.4 % (11.5-14.5); White Blood Cell Count 8.3 10^3/uL (4.8-10.8)
[2024-05-16 08:01] LABS: Glucose - Point of Care 165 mg/dl (70-99)
[2024-05-16 08:22] LABS: Blood Urea Nitrogen 19 mg/dl (9-20); Calcium 9.1 mg/dl (8.4-10.2); Carbon Dioxide 21 mmol/L (22-30); Chloride 102 mmol/L (98-107); Estimated Creatinine Clearance 77 ml/min; Glucose 182 mg/dl (70-99); Potassium 4.1 mmol/L (3.5-5.1); Sodium 137 mmol/L (135-145); eGFR > 60.00
[2024-05-16] MEDS: NOVOLOG FLEXPEN-MODERATE RESISTANCE 1 UNITS SC (08:52)
[2024-05-16] MEDS: TOPROL XL 25 MG PO (08:53)
[2024-05-16] MEDS: KEPPRA 500 MG PO ×2 (08:54→22:06)
[2024-05-16] MEDS: LOW STRENGTH ASPIRIN 81 MG PO (08:54)
[2024-05-16] MEDS: ZESTRIL 5 MG PO (08:54)
[2024-05-16] MEDS: PROTONIX 20 MG PO (08:57)
[2024-05-16 11:33] LABS: Glucose - Point of Care 222 mg/dl (70-99)
[2024-05-16] MEDS: NOVOLOG FLEXPEN-MODERATE RESISTANCE 3 UNITS SC (11:43)
[2024-05-16 15:36] VITALS: BP 110/68
--- NOTE | 2024-05-16 15:52 | CM ---
CM reviewed chart, discussed with PMR Dr. Blackman, recommending SNF for patient. CM updated referrals in [facility] ([place], [facility], [facility], [facility], and [facility]). CM spoke with patients sister, Poornima ([phone]) regarding
[facility] SNF- facility still does not have contract with patients insurance and can not accept at this time. CM will continue to follow for all discharge planning needs.
Plan; SNF with transition to LTC, awaiting accepting facility, will need insurance auth.
--- NOTE | 2024-05-16 16:21 | W.PN.HOSP.TC ---
Today's Communication/Plan
-
Patient is more awake and cooperative today.
Continue aspirin
Continue Keppra.
Continue physical therapy
Adjust insulin dose
Placement to assisted facility for rehab pending bed availability
Assessment / Plan
Assessment / Plan
Impression:
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
Dense left hemiparesis
Fever
History of multiple CVA
Essential hypertension
NIDDM.
Asperger syndrome reported
Plan:
Acute likely embolic multifocal CVA.
MRI of the brain:
1. LARGE 8.6 cm ACUTE ISCHEMIC INFARCT in the ANTEROMEDIAL RIGHT FRONTAL LOBE (right anterior cerebral artery territory) containing severe cytotoxic edema.
2. Multiple small chronic infarcts in the white matter of both frontal lobes.
3. Small chronic lacunar infarcts in the basal ganglia.
4. Severe white matter leukoaraiosis in the frontal and parietal lobes.
5. Mild Wallerian degeneration in the right side of the midbrain and lisa.
6. Moderate diffuse cerebral and cerebellar volume loss.
CTA
There is absent flow/occlusion in the right anterior cerebral artery beyond the A2 segment of the right anterior cerebral artery with absent flow in the proximal portions of the right callosal marginal and pericallosal arteries with cross filling of
distal pericallosal branches
Risk factors dyslipidemia/LDL 147
Diabetes
ECG NSR/sinus tach. No known history of arrhythmias.
Echocardiogram with preserved ventricular function and no evidence for cardioembolic source
Found not to be a candidate for thrombolytics given unknown time of onset of symptoms/duration.
Initiated on dual antiplatelet therapy: Aspirin�Plavix. For 21 days with aspirin on day 22.
Statin.
Repeat MRI 05/09 with new foci of acute to subacute infarction involving parks radiata of the right parietal lobe and anterior and inferior left cerebral hemisphere.
In addition there is a hemorrhagic component at the right REMI infarct territory
MRV negative for thrombosis
DIAMANTE 05/10 with no evidence of cardioembolic source.
Initially on DAPT with Aspirin and Plavix, although with concern for hemorrhagic conversion as well as no evidence of intracranial stenosis on imaging Plavix had been discontinued on 05/09
Clinical concern for embolic CVA, although no documented arrhythmia on presentation and ongoing telemetry. May require outpatient cardiac monitoring.
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
Concern for subclinical seizures given persistent lethargy
Repeated EEG with no epileptic activity.
Continue Keppra 5 mg every 12 hours
Continue to monitor mental status closely
Aspiration risk.
Speech evaluation daily including VSE on 05/06
Aspiration precautions
Initiated on modified diet.
New onset of fever 05/03 - 05/04.
Lethargic.
Concern for evolving infection/sepsis: At risk for aspiration, UTI
Sepsis workup with negative
Initiated empiric antibiotics but discontinued on 05/05
Keep IDDSI 6 diet and thin liquids while administering oral medications with caution.
Essential hypertension
Adjust antihypertensive regimen with increased dose of Toprol and addition of lisinopril.
Type 2 diabetes
Hemoglobin A1c 8.9
Given persistent neurologic deficiencies hold oral glucose lowering medication
Continue basal bolus protocol
Initiated on Lantus. Continue dose adjustment to try to maintain glucose 140 to 180.
Anticipated Discharge: > 48 hours
Anticipated Discharge: 24 - 48 hours
Subjective/Interval History
-
Date of Service: May 16, 2024
Objective Data
-
Labs:
Laboratory Results
05/16/24
07:10
WBC 8.3
Hgb 15.9
Hct 45.6
Plt Count 197
Sodium 137
Potassium 4.1
Chloride 102
Carbon Dioxide 21 L
BUN 19
Creatinine 1.1
Glucose 182 H
Calcium 9.1
Vital Signs:
Vital Signs
Temp Pulse Resp BP Pulse Ox
98.2 F 63 18 110/68 94
05/16/24 15:36 05/16/24 15:36 05/16/24 15:36 05/16/24 15:36 05/16/24 15:36
I&O
05/15/24 05/16/24 05/17/24
06:59 06:59 06:59
Intake Total 590 / 590 960 / 960
Output Total 100 / 100
Balance 490 / 490 960 / 960
Physical Exam
-
General: Well Nourished, No Apparent Distress and Comfortable
HEENT: Normocephalic, Atraumatic and Moist Mucous Membranes
Respiratory: Clear to Auscultation and Non Labored Respirations; Negative Wheezes, Rales or Rhonchi
Cardiac: Regular Rhythm and S1/S2; Negative Murmur, Rub or Gallop
GI: Soft, Nontender, Nondistended and Normal Bowel Sounds
Musculoskeletal: No Clubbing, No Cyanosis and No Edema
Skin: Warm and Dry; Negative Rash
Neuro: Awake, Oriented, Central Nerve's Intact and Other (Flaccid paralysis to the left extremities, upgoing Babinski on left)
Psych: Calm
[2024-05-16 16:24] LABS: Glucose - Point of Care 270 mg/dl (70-99)
--- NOTE | 2024-05-16 16:57 | W.PN.REHAB ---
Today's Communication / Plan
-
Summary of recommendations:
Discharge Destination: SNF, Once doing better and significantly benefit from transfer to acute rehab.
Left spastic nondominant hemiparesis: High risk for falls and sliding out of chair/bed. Safety reinforced.Recommend multipodus boot - LLE since already with history of left foot weakness prior to recent CVA
-Avoid using affected arm to help lift or pull patient as this will cause trauma to the shoulder.
-Would consider oral antispasticity medications however with his cognition concerns would be concerned that it would interfere too much at this time. Continue to monitor. Try positioning and stretching with therapy.
-Could consider Ritalin 5 mg in the morning and in the afternoon to help with mood as well as attention. Discussed with his sister who is willing to try it.
-Consider Multi-Podus boots.
Assessment/Function
-
Assessment:
Physical Exam:
General Appearance/Observation: Well-developed, well-nourished male in no apparent distress.
Mood/Affect: Appears avoidant, can interact and answer questions at times
Integumentary/Operative Site: No lesions noted during course of exam
Eyes: Conjunctiva/Lids: normal Pupils: pupils equal round and reactive to light and Accommodation
Ears/Nose/Throat: Unable to evaluate mouth
Cardiovascular: Heart: regular, no murmur
Pulses: dorsalis pedis 2+ bilaterally
Respiratory: Respiratory Effort/Chest Expansion: normal. Auscultation: Clear to auscultation bilaterally
Gastrointestinal: abdomen not tender, no distension, normal abdominal bowel sounds
Genitourinary: No Hale
Rectal Exam: Deferred
Extremities: Edema: None Cyanosis: None Trophic changes: None
Neurology Exam:
Orientation: Alert, Oriented to self, Time, Place except for off with dated week
Memory: Unable to assess
Repetition: Unable to assess
Comprehension: Intact
Two step command: Intact
Naming: Unable to assess
Cranial Nerves:
CNII: Pupillary light reflex: Intact Visual Field: Unable to assess
CN III, IV, : Extraocular muscles: Left eye more lateral
CN V: Facial Sensation: Unable to assess
CN VII: Facial movement: Left facial weakness
CN VIII: Hearing: Appears intact
CN IX/X: Speech & swallow: Normal Position of Uvula: Unable to assess
CN XI: Shoulder shrug: Decreased on left
CN XII: Tongue protrusion: Unable to assess
Sensory: Unable to assess
Reflexes:
Babinski: Present on the left, absent on the right
Clonus: Few beats
Colton: Upgoing left, downgoing right
Cerebellar: Dysmetria/Ataxia: None
Musculoskeletal: Motor: (Manual muscle scale 0-5) able to lift arm and leg up on the right. Does not appear to have volitional movement on the left but does have reflexive movement with touch and movement of the body in bed. Triple flexion
response.
Tone: Increased left upper and lower extremity, normal on the right
Range of Motion: Passively within normal limits on the right, limited on the left with tone.
Function:
Bed Mobility: Max A
Transfers:
Ambulation:
Steps:
ADL's:
Plan
-
Assessment
63 year old right handed male with PMH of ( Asperger, uncontrolled HTN, 2 prior strokes with residual left foot weakness, HDL)who has presented to the hospital with altered mental status and weakness. Found to have LARGE 8.6 cm ACUTE ISCHEMIC
INFARCT in the ANTEROMEDIAL RIGHT FRONTAL LOBE. Patient overall not responsive.
Plan
PT/OT to increase independence with ADLs, improve balance, coordination, endurance, strength, mobility, community reintegration, decreased burden of care on others and family education.
CVA: H/O 2 prior strokes with Left foot drop?- currently with LARGE 8.6 cm ACUTE ISCHEMIC INFARCT in the ANTEROMEDIAL RIGHT FRONTAL LOBE. started on aspirin and Plavix x 21 days, then aspirin alone statin, and blood pressure control (SBP less than
180 and diastolic less than 100 to participate with therapy for ischemic stroke).
-Patient able to have some response to verbal and tactile stimuli. Appears to be behavioral in nature for most of the time. Is able to answer clearly and is oriented when he wants to.
-Could consider Ritalin 5 mg in the morning and in the afternoon to help with mood as well as attention. Discussed with his sister who is willing to try it.
Left spastic nondominant hemiparesis: High risk for falls and sliding out of chair/bed. Safety reinforced.Recommend multipodus boot - LLE since already with history of left foot weakness prior to recent CVA
- Avoid using affected arm to help lift or pull patient as this will cause trauma to the shoulder.
-Would consider oral antispasticity medications however with his cognition concerns would be concerned that it would interfere too much at this time. Continue to monitor. Try positioning and stretching with therapy.
Left Neglect: makes patient at increased risk for falls.� Will need therapy to work on scanning of environment for safe navigation.
Dysphagia: Soft and bite-size
Asperger Syndrome: Noted
HTN: Lisinopril 5 mg daily, metoprolol succinate 25 mg daily, monitor closely
HLD: Atorvastatin 80 mg at bedtime
DM II: Accu-Cheks, insulin sliding scale, Hemoglobin A1c 8.9, Lantus, aspart, Actos 15 mg daily
Anemia: Likely multifactorial.� Continue to monitor.
Psych: Psychology consult.� Monitor mood, adjust medications as needed.
Skin: monitor for pressure sores/rashes/lesions.
Pain: acetaminophen as needed.
Bowel: Not on a bowel program
Bladder: Time void, PVRs, PRN straight cath.
GI Prophylaxis: Pantoprazole 20mg qd
DVT Prophylaxis: recommend mechanical and suggest Lovenox
Pulmonary: Incentive spirometry
Safety: Continue to reinforce assistance with all transfers.
Code Status:� Full code
Dispo (date/plan/equipment needs): Home with family care.� Social history reviewed.
Functional and Medical Goals: Modified Independent with ADL�s, ambulation, transfers
Discharge Destination: SNF discussed with nursing, case management, sister, patient, Dr. Guerrero. Once doing better and significantly benefit from transfer to acute rehab.
A total of 50 minutes were spent with the patient preparing for the evaluation, obtaining history, performing examination and evaluation, counseling, data review, case management, care coordination, medical orderly, and EMR documentation.
Subjective
-
Patient seen and examined today. Overall continues to make progress with interacting more and moving more per staff. Still limited with being fatigued and not interacting at times. Overall he notes feeling okay. Denies any concerns. Did require
nursing to be with him for a few minutes before he began to answer. Sister at bedside. No new concerns noted by nurse.
Vital Signs / Labs
-
Vital Signs and Labs:
Temp Pulse Resp BP Pulse Ox
98.2 F 63 18 110/68 94
05/16/24 15:36 05/16/24 15:36 05/16/24 15:36 05/16/24 15:36 05/16/24 15:36
05/16/24 07:10
05/16/24 07:10
05/15/24 05/15/24 05/16/24
16:55 21:21 07:10
MPV 12.1 H
Carbon Dioxide 21 L
Glucose 182 H
POC Glucose 236 H 147 H
05/16/24 05/16/24 05/16/24
07:59 11:32 16:23
MPV
Carbon Dioxide
Glucose
POC Glucose 165 H 222 H 270 H
[2024-05-16] MEDS: NOVOLOG FLEXPEN-MODERATE RESISTANCE 5 UNITS SC (17:13)
[2024-05-16] MEDS: NOVOLOG FLEXPEN 3 UNITS SC (17:13)
[2024-05-16] MEDS: LIPITOR 80 MG PO (17:14)
[2024-05-16 22:02] LABS: Glucose - Point of Care 108 mg/dl (70-99)
[2024-05-16] MEDS: LANTUS 0.09 UNITS SC (22:07)
[2024-05-16 23:25] VITALS: BP 139/84
[2024-05-17 07:37] VITALS: BP 142/83
[2024-05-17 08:12] LABS: Glucose - Point of Care 183 mg/dl (70-99)
[2024-05-17] MEDS: NOVOLOG FLEXPEN-MODERATE RESISTANCE SC ×2 (09:03→12:17)
[2024-05-17] MEDS: NOVOLOG FLEXPEN SC ×2 (09:03→12:17)
[2024-05-17] MEDS: ZESTRIL PO (09:04)
[2024-05-17] MEDS: LOW STRENGTH ASPIRIN PO (09:04)
[2024-05-17] MEDS: PROTONIX PO (09:04)
[2024-05-17] MEDS: KEPPRA PO (09:04)
[2024-05-17] MEDS: TOPROL XL PO (09:04)
--- NOTE | 2024-05-17 09:06 | PTCARENOTE ---
pt refusing AM medication pass and [facility] stroke assessment to be preformed. will try again later in shift with [facility]. MD Guerrero made aware via T.T. no new orders at this time.
--- NOTE | 2024-05-17 11:32 | CM ---
Addendum entered by Maritza Espinosa 05/17/24 15:16:
CM placed call to [facility], left voicemail requesting return call/ ability to accept patient. CM placed call to patients sisterPoornima, to discuss additional referrals sent. CM will continue to follow for all discharge planning needs.
Plan; SNF/LTC pending accepting facility.
Original Note:
CM spoke with [facility], unable to accept, no LTC beds at this time. CM spoke with [facility], will review clinicals. CM placed call to [facility], left voicemail requesting return call. Additional SNF referrals sent in [facility]. CM will
continue to follow for all discharge planning needs.
Plan; SNF transition to LTC pending accepting facility.
[2024-05-17 11:47] LABS: Glucose - Point of Care 165 mg/dl (70-99)
--- NOTE | 2024-05-17 15:16 | PTCARENOTE ---
MD Guerrero made at bedside reassessing pt made aware pt refused breakfast and lunch, med passes and [facility] stroke scale evaluation in the AM (done later in shift). no new orders at time. encouraged and explained the importance of compliance to
facilitate the most effective response to the interventions offered. care plan continues to be followed. CM continues to look for placement.
[2024-05-17 15:18] VITALS: BP 113/82
--- NOTE | 2024-05-17 16:05 | W.PN.HOSP.TC ---
Today's Communication/Plan
-
Stable neurologically
Ongoing PT.
Erratic oral including medications intake.
No insulin changes today
Pending placement to long term facility
Assessment / Plan
Assessment / Plan
Impression:
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
Dense left hemiparesis
Fever
History of multiple CVA
Essential hypertension
NIDDM.
Asperger syndrome reported
Plan:
Acute likely embolic multifocal CVA.
MRI of the brain:
1. LARGE 8.6 cm ACUTE ISCHEMIC INFARCT in the ANTEROMEDIAL RIGHT FRONTAL LOBE (right anterior cerebral artery territory) containing severe cytotoxic edema.
2. Multiple small chronic infarcts in the white matter of both frontal lobes.
3. Small chronic lacunar infarcts in the basal ganglia.
4. Severe white matter leukoaraiosis in the frontal and parietal lobes.
5. Mild Wallerian degeneration in the right side of the midbrain and lisa.
6. Moderate diffuse cerebral and cerebellar volume loss.
CTA
There is absent flow/occlusion in the right anterior cerebral artery beyond the A2 segment of the right anterior cerebral artery with absent flow in the proximal portions of the right callosal marginal and pericallosal arteries with cross filling of
distal pericallosal branches
Risk factors dyslipidemia/LDL 147
Diabetes
ECG NSR/sinus tach. No known history of arrhythmias.
Echocardiogram with preserved ventricular function and no evidence for cardioembolic source
Found not to be a candidate for thrombolytics given unknown time of onset of symptoms/duration.
Initiated on dual antiplatelet therapy: Aspirin�Plavix. For 21 days with aspirin on day 22.
Statin.
Repeat MRI 05/09 with new foci of acute to subacute infarction involving parks radiata of the right parietal lobe and anterior and inferior left cerebral hemisphere.
In addition there is a hemorrhagic component at the right REMI infarct territory
MRV negative for thrombosis
DIAMANTE 05/10 with no evidence of cardioembolic source.
Initially on DAPT with Aspirin and Plavix, although with concern for hemorrhagic conversion as well as no evidence of intracranial stenosis on imaging Plavix had been discontinued on 05/09
Clinical concern for embolic CVA, although no documented arrhythmia on presentation and ongoing telemetry. May require outpatient cardiac monitoring.
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
Concern for subclinical seizures given persistent lethargy
Repeated EEG with no epileptic activity.
Continue Keppra 5 mg every 12 hours
Continue to monitor mental status closely
Aspiration risk.
Speech evaluation daily including VSE on 05/06
Aspiration precautions
Initiated on modified diet.
New onset of fever 05/03 - 05/04.
Lethargic.
Concern for evolving infection/sepsis: At risk for aspiration, UTI
Sepsis workup with negative
Initiated empiric antibiotics but discontinued on 05/05
Keep IDDSI 6 diet and thin liquids while administering oral medications with caution.
Essential hypertension
Adjust antihypertensive regimen with increased dose of Toprol and addition of lisinopril.
Type 2 diabetes
Hemoglobin A1c 8.9
Given persistent neurologic deficiencies hold oral glucose lowering medication
Continue basal bolus protocol
Initiated on Lantus. Continue dose adjustment to try to maintain glucose 140 to 180.
Anticipated Discharge: > 48 hours
Anticipated Discharge: 24 - 48 hours
Subjective/Interval History
-
Date of Service: May 17, 2024
Objective Data
-
Vital Signs:
Vital Signs
Temp Pulse Resp BP Pulse Ox
97.9 F 72 20 113/82 97
05/17/24 15:18 05/17/24 15:18 05/17/24 15:18 05/17/24 15:18 05/17/24 15:18
I&O
05/16/24 05/17/24 05/18/24
06:59 06:59 06:59
Intake Total 960 / 960 840 / 840
Balance 960 / 960 840 / 840
Physical Exam
-
General: Well Nourished, No Apparent Distress and Comfortable
HEENT: Normocephalic, Atraumatic and Moist Mucous Membranes
Respiratory: Clear to Auscultation and Non Labored Respirations; Negative Wheezes, Rales or Rhonchi
Cardiac: Regular Rhythm and S1/S2; Negative Murmur, Rub or Gallop
GI: Soft, Nontender, Nondistended and Normal Bowel Sounds
Musculoskeletal: No Clubbing, No Cyanosis and No Edema
Skin: Warm and Dry; Negative Rash
Neuro: Awake, Oriented, Central Nerve's Intact and Other (Flaccid paralysis to the left extremities, upgoing Babinski on left)
Psych: Calm
[2024-05-17 17:16] LABS: Glucose - Point of Care 219 mg/dl (70-99)
[2024-05-17] MEDS: LIPITOR 80 MG PO (17:21)
[2024-05-17] MEDS: NOVOLOG FLEXPEN 3 UNITS SC (17:28)
[2024-05-17] MEDS: NOVOLOG FLEXPEN-MODERATE RESISTANCE 3 UNITS SC (17:40)
[2024-05-17] MEDS: KEPPRA 500 MG PO (19:35)
[2024-05-17 21:09] LABS: Glucose - Point of Care 147 mg/dl (70-99)
[2024-05-17] MEDS: LANTUS 0.09 UNITS SC (21:43)
[2024-05-17 23:22] VITALS: BP 138/75
[2024-05-18 07:28] VITALS: BP 115/75
[2024-05-18 08:11] LABS: Glucose - Point of Care 138 mg/dl (70-99)
[2024-05-18] MEDS: NOVOLOG FLEXPEN 3 UNITS SC ×3 (08:37→17:55)
[2024-05-18] MEDS: NOVOLOG FLEXPEN-MODERATE RESISTANCE SC (08:37)
[2024-05-18] MEDS: TOPROL XL 25 MG PO (08:38)
[2024-05-18] MEDS: KEPPRA 500 MG PO ×2 (08:39→20:50)
[2024-05-18] MEDS: PROTONIX 20 MG PO (08:39)
[2024-05-18] MEDS: LOW STRENGTH ASPIRIN 81 MG PO (08:40)
[2024-05-18] MEDS: ZESTRIL 5 MG PO (08:40)
[2024-05-18 12:05] LABS: Glucose - Point of Care 257 mg/dl (70-99)
[2024-05-18] MEDS: NOVOLOG FLEXPEN-MODERATE RESISTANCE 5 UNITS SC (12:12)
--- NOTE | 2024-05-18 13:45 | PTOTSP ---
Speech Language Pathology
Pt seen for speech/language tx. Improved verbalizations noted this date. Pt stated 'My Asperger's been getting in the way...of brain function.' Pt also with no response to questions at times. Answered approximately 50% of yes/no questions.
1-step commands= 80%.
Pt also seen for dysphagia tx. P.O. trials of puree, regular solids, and thin liquids provided. Adequate mastication, bolus formation, and A-P transit noted. Intermittent oral holding noted. This date, verbal and tactile cueing ineffective.
Typically able to initiate swallow on own given time. Had to expectorate sip of liquid x1. Otherwise, prompt swallow initiation noted. No overt signs of aspiration.
Recommend:
(1) Upgrade to regular solids/thin liquids
(2) Aspiration precautions: sit upright, slow rate, ensure pt swallows prior to next bite/sip, at least partial supervision
(3) Meds as tolerated
(4) RAILROAD ACCOUNTANT to continue to follow
--- NOTE | 2024-05-18 15:02 | CM ---
CM met with patients sister, discussed [facility], [facility], and [facility] can offer patient a bed once authorization approved. Patients sister would like to tour [facility] as they are local, will make decision. CM discussed
patient is medically stable for discharge, will await family decision to move forward with authorization. CM will continue to follow for all discharge planning needs.
Plan; Family to tour accepting facility, will require authorization, await family decision.
[2024-05-18 15:22] VITALS: BP 154/88
--- NOTE | 2024-05-18 15:31 | W.PN.HOSP.TC ---
Today's Communication/Plan
-
Ongoing dispo efforts
Assessment / Plan
Assessment / Plan
Impression:
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
Dense left hemiparesis
Fever
History of multiple CVA
Essential hypertension
NIDDM.
Asperger syndrome reported
Plan:
Acute likely embolic multifocal CVA.
MRI of the brain:
1. LARGE 8.6 cm ACUTE ISCHEMIC INFARCT in the ANTEROMEDIAL RIGHT FRONTAL LOBE (right anterior cerebral artery territory) containing severe cytotoxic edema.
2. Multiple small chronic infarcts in the white matter of both frontal lobes.
3. Small chronic lacunar infarcts in the basal ganglia.
4. Severe white matter leukoaraiosis in the frontal and parietal lobes.
5. Mild Wallerian degeneration in the right side of the midbrain and lisa.
6. Moderate diffuse cerebral and cerebellar volume loss.
CTA
There is absent flow/occlusion in the right anterior cerebral artery beyond the A2 segment of the right anterior cerebral artery with absent flow in the proximal portions of the right callosal marginal and pericallosal arteries with cross filling of
distal pericallosal branches
Risk factors dyslipidemia/LDL 147
Diabetes
ECG NSR/sinus tach. No known history of arrhythmias.
Echocardiogram with preserved ventricular function and no evidence for cardioembolic source
Found not to be a candidate for thrombolytics given unknown time of onset of symptoms/duration.
Initiated on dual antiplatelet therapy: Aspirin�Plavix. For 21 days with aspirin on day 22.
Statin.
Repeat MRI 05/09 with new foci of acute to subacute infarction involving parks radiata of the right parietal lobe and anterior and inferior left cerebral hemisphere.
In addition there is a hemorrhagic component at the right REMI infarct territory
MRV negative for thrombosis
DIAMANTE 05/10 with no evidence of cardioembolic source.
Initially on DAPT with Aspirin and Plavix, although with concern for hemorrhagic conversion as well as no evidence of intracranial stenosis on imaging Plavix had been discontinued on 9/23
Clinical concern for embolic CVA, although no documented arrhythmia on presentation and ongoing telemetry. May require outpatient cardiac monitoring.
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
Concern for subclinical seizures given persistent lethargy
Repeated EEG with no epileptic activity.
Continue Keppra 5 mg every 12 hours
Continue to monitor mental status closely
Aspiration risk.
Speech evaluation daily including VSE on 05/06
Aspiration precautions
Initiated on modified diet.
New onset of fever 05/03 - 05/04.
Lethargic.
Concern for evolving infection/sepsis: At risk for aspiration, UTI
Sepsis workup with negative
Initiated empiric antibiotics but discontinued on 05/05
Keep IDDSI 6 diet and thin liquids while administering oral medications with caution.
Essential hypertension
Adjust antihypertensive regimen with increased dose of Toprol and addition of lisinopril.
Type 2 diabetes
Hemoglobin A1c 8.9
Given persistent neurologic deficiencies hold oral glucose lowering medication
Continue basal bolus protocol
Initiated on Lantus. Continue dose adjustment to try to maintain glucose 140 to 180.
Speech cleared for regular diet.
DW at bedside
Medically stable for DC to rehab.
Anticipated Discharge: Within 24 hours
Subjective/Interval History
-
Date of Service: May 18, 2024
No new issues
Objective Data
-
Vital Signs:
Vital Signs
Temp Pulse Resp BP Pulse Ox
97.9 F 75 18 154/88 96
05/18/24 15:22 05/18/24 15:22 05/18/24 15:22 05/18/24 15:22 05/18/24 15:22
I&O
05/17/24 05/18/24 05/19/24
06:59 06:59 06:59
Intake Total 840 / 840 690 / 690
Balance 840 / 840 690 / 690
Physical Exam
-
General: Comfortable
HEENT: Moist Mucous Membranes
Respiratory: Non Labored Respirations; Negative Accessory Resp Muscle Use
Cardiac: Regular Rhythm and S1/S2
GI: Soft
Neuro: Awake and Alert
Psych: Calm
[2024-05-18 17:25] LABS: Glucose - Point of Care 245 mg/dl (70-99)
[2024-05-18] MEDS: NOVOLOG FLEXPEN-MODERATE RESISTANCE 3 UNITS SC (17:55)
[2024-05-18] MEDS: LIPITOR 80 MG PO (17:56)
[2024-05-18 22:01] LABS: Glucose - Point of Care 283 mg/dl (70-99)
[2024-05-18] MEDS: LANTUS 0.09 UNITS SC (22:16)
[2024-05-18 23:23] VITALS: BP 121/72
[2024-05-19 07:30] VITALS: BP 113/68
[2024-05-19 08:15] LABS: Glucose - Point of Care 209 mg/dl (70-99)
[2024-05-19] MEDS: NOVOLOG FLEXPEN-MODERATE RESISTANCE 3 UNITS SC ×2 (10:17→17:59)
[2024-05-19] MEDS: NOVOLOG FLEXPEN 3 UNITS SC ×3 (10:17→17:59)
[2024-05-19] MEDS: KEPPRA 500 MG PO ×2 (10:18→20:23)
[2024-05-19] MEDS: TOPROL XL 25 MG PO (10:18)
[2024-05-19] MEDS: ZESTRIL 5 MG PO (10:18)
[2024-05-19] MEDS: PROTONIX 20 MG PO (10:19)
[2024-05-19] MEDS: LOW STRENGTH ASPIRIN 81 MG PO (10:19)
[2024-05-19 11:46] LABS: Glucose - Point of Care 178 mg/dl (70-99)
[2024-05-19 12:28] VITALS: BP 114/56; BP 120/53; PULSE 68; O2SAT 93
[2024-05-19 12:32] VITALS: BP 114/56; BP 120/53; PULSE 68
[2024-05-19] MEDS: NOVOLOG FLEXPEN-MODERATE RESISTANCE 1 UNITS SC (12:52)
--- NOTE | 2024-05-19 13:30 | CM ---
CM met with patient and sister bedside, sister Poornima hayes [facility], agreeable for patient to discharge to facility. CM initiated auth through [employer] (p: [phone]), faxed authorization request form and clinicals to [phone], no
auth reference number given. CM will continue to follow for all discharge planning needs.
Plan; [facility] SNF/LTC once auth approved.
--- NOTE | 2024-05-19 13:59 | W.PN.HOSP.TC ---
Today's Communication/Plan
-
Ongoing dc efforts
Assessment / Plan
Assessment / Plan
Impression:
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
Dense left hemiparesis
Fever
History of multiple CVA
Essential hypertension
NIDDM.
Asperger syndrome reported
Plan:
Acute likely embolic multifocal CVA.
MRI of the brain:
1. LARGE 8.6 cm ACUTE ISCHEMIC INFARCT in the ANTEROMEDIAL RIGHT FRONTAL LOBE (right anterior cerebral artery territory) containing severe cytotoxic edema.
2. Multiple small chronic infarcts in the white matter of both frontal lobes.
3. Small chronic lacunar infarcts in the basal ganglia.
4. Severe white matter leukoaraiosis in the frontal and parietal lobes.
5. Mild Wallerian degeneration in the right side of the midbrain and lisa.
6. Moderate diffuse cerebral and cerebellar volume loss.
CTA
There is absent flow/occlusion in the right anterior cerebral artery beyond the A2 segment of the right anterior cerebral artery with absent flow in the proximal portions of the right callosal marginal and pericallosal arteries with cross filling of
distal pericallosal branches
Risk factors dyslipidemia/LDL 147
Diabetes
ECG NSR. No known history of arrhythmias.
Echocardiogram with preserved ventricular function and no evidence for cardioembolic source
Found not to be a candidate for thrombolytics given unknown time of onset of symptoms/duration.
Initiated on dual antiplatelet therapy: Aspirin�Plavix. For 21 days with aspirin on day 22.
Statin.
Repeat MRI 05/09 with new foci of acute to subacute infarction involving parks radiata of the right parietal lobe and anterior and inferior left cerebral hemisphere.
In addition there is a hemorrhagic component at the right REMI infarct territory
MRV negative for thrombosis
DIAMANTE 05/10 with no evidence of cardioembolic source.
Initially on DAPT with Aspirin and Plavix, although with concern for hemorrhagic conversion as well as no evidence of intracranial stenosis on imaging Plavix had been discontinued on 05/09
Clinical concern for embolic CVA, although no documented arrhythmia on presentation and ongoing telemetry. May require outpatient cardiac monitoring.
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
Concern for subclinical seizures given persistent lethargy
Repeated EEG with no epileptic activity.
Continue Keppra 5 mg every 12 hours
Continue to monitor mental status closely
Aspiration risk.
Speech evaluation daily including VSE on 05/06
Aspiration precautions
Initiated on modified diet.
New onset of fever 05/03 - 05/04.No eecurrence
Concern for evolving infection/sepsis: At risk for aspiration, UTI
Sepsis workup with negative
Initiated empiric antibiotics but discontinued on 05/05
Keep IDDSI 6 diet and thin liquids while administering oral medications with caution.
Essential hypertension
Adjust antihypertensive regimen with increased dose of Toprol and addition of lisinopril.
Type 2 diabetes
Hemoglobin A1c 8.9
Given persistent neurologic deficiencies hold oral glucose lowering medication
Continue basal bolus protocol
Initiated on Lantus. Continue dose adjustment to try to maintain glucose 140 to 180.
Initate back on Metformin on dc
Speech cleared for regular diet.
DW at bedside
Medically stable for DC to rehab.
DW CM -has a rehab ;auth pending
Anticipated Discharge: Within 24 hours
Subjective/Interval History
-
Date of Service: May 19, 2024
Doesnt talk much but said his left arm is bit better. at bedside - no new concerns from her end.
Objective Data
-
Vital Signs:
Vital Signs
Temp Pulse Resp BP Pulse Ox
97.1 F 65 16 113/68 98
05/19/24 07:30 05/19/24 10:18 05/19/24 07:30 05/19/24 10:18 05/19/24 08:34
I&O
05/18/24 05/19/24 05/20/24
06:59 06:59 06:59
Intake Total 690 / 690 1080 / 1080
Output Total 200 / 200
Balance 690 / 690 880 / 880
Review of Systems
-
Unable to obtain full review of systems at this time due to: Other (limited as he is not conversational much)
Respiratory: Denies Trouble Breathing
Cardiac: Denies Chest Pain
Physical Exam
-
Respiratory: Non Labored Respirations; Negative Accessory Resp Muscle Use
Cardiac: Regular Rhythm, S1/S2 and Other (Tele lead areas with allergic reaction); Negative Tachycardic
Neuro: Negative No Motor Deficits (left hemiparesis)
Psych: Calm
[2024-05-19 15:00] VITALS: BP 100/62
[2024-05-19 17:10] LABS: Glucose - Point of Care 215 mg/dl (70-99)
[2024-05-19] MEDS: LIPITOR 80 MG PO (18:00)
[2024-05-19] MEDS: HYDROCORTISONE 1% CREAM 1 APPLIC TOPICAL (20:23)
[2024-05-19 21:19] LABS: Glucose - Point of Care 183 mg/dl (70-99)
[2024-05-19] MEDS: LANTUS 0.09 UNITS SC (22:37)
[2024-05-19 23:41] VITALS: BP 115/61
[2024-05-20 07:34] LABS: Glucose - Point of Care 160 mg/dl (70-99)
[2024-05-20 07:50] VITALS: BP 111/70
[2024-05-20] MEDS: PROTONIX 20 MG PO (08:39)
[2024-05-20] MEDS: NOVOLOG FLEXPEN 3 UNITS SC ×3 (08:39→17:52)
[2024-05-20] MEDS: LOW STRENGTH ASPIRIN 81 MG PO (08:39)
[2024-05-20] MEDS: KEPPRA 500 MG PO ×2 (08:39→20:36)
[2024-05-20] MEDS: TOPROL XL 25 MG PO (08:39)
[2024-05-20] MEDS: NOVOLOG FLEXPEN-MODERATE RESISTANCE 1 UNITS SC (08:40)
[2024-05-20] MEDS: HYDROCORTISONE 1% CREAM 1 APPLIC TOPICAL ×2 (08:40→20:09)
[2024-05-20] MEDS: ZESTRIL 5 MG PO (08:40)
[2024-05-20 11:13] LABS: Glucose - Point of Care 310 mg/dl (70-99)
[2024-05-20] MEDS: NOVOLOG FLEXPEN-MODERATE RESISTANCE 7 UNITS SC (12:07)
--- NOTE | 2024-05-20 14:27 | W.PN.HOSP.TC ---
Today's Communication/Plan
-
DC
Assessment / Plan
Assessment / Plan
Impression:
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
Dense left hemiparesis
Fever
History of multiple CVA
Essential hypertension
NIDDM.
Asperger syndrome reported
Plan:
Acute likely embolic multifocal CVA.
MRI of the brain:
1. LARGE 8.6 cm ACUTE ISCHEMIC INFARCT in the ANTEROMEDIAL RIGHT FRONTAL LOBE (right anterior cerebral artery territory) containing severe cytotoxic edema.
2. Multiple small chronic infarcts in the white matter of both frontal lobes.
3. Small chronic lacunar infarcts in the basal ganglia.
4. Severe white matter leukoaraiosis in the frontal and parietal lobes.
5. Mild Wallerian degeneration in the right side of the midbrain and lisa.
6. Moderate diffuse cerebral and cerebellar volume loss.
CTA
There is absent flow/occlusion in the right anterior cerebral artery beyond the A2 segment of the right anterior cerebral artery with absent flow in the proximal portions of the right callosal marginal and pericallosal arteries with cross filling of
distal pericallosal branches
Risk factors dyslipidemia/LDL 147
Diabetes
ECG NSR. No known history of arrhythmias.
Echocardiogram with preserved ventricular function and no evidence for cardioembolic source
Found not to be a candidate for thrombolytics given unknown time of onset of symptoms/duration.
Initiated on dual antiplatelet therapy: Aspirin�Plavix. For 21 days with aspirin on day 22.
Statin.
Repeat MRI 05/09 with new foci of acute to subacute infarction involving parks radiata of the right parietal lobe and anterior and inferior left cerebral hemisphere.
In addition there is a hemorrhagic component at the right REMI infarct territory
MRV negative for thrombosis
DIAMANTE 05/10 with no evidence of cardioembolic source.
Initially on DAPT with Aspirin and Plavix, although with concern for hemorrhagic conversion as well as no evidence of intracranial stenosis on imaging Plavix had been discontinued on 05/09
Clinical concern for embolic CVA, although no documented arrhythmia on presentation and ongoing telemetry. May require outpatient cardiac monitoring.
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
Concern for subclinical seizures given persistent lethargy
Repeated EEG with no epileptic activity.
Continue Keppra 5 mg every 12 hours
Continue to monitor mental status closely
Aspiration risk.
Speech evaluation daily including VSE on 05/06
Aspiration precautions
Initiated on modified diet.
New onset of fever 05/03 - 05/04.No eecurrence
Concern for evolving infection/sepsis: At risk for aspiration, UTI
Sepsis workup with negative
Initiated empiric antibiotics but discontinued on 05/05
Keep IDDSI 6 diet and thin liquids while administering oral medications with caution.
Essential hypertension
Adjust antihypertensive regimen with increased dose of Toprol and addition of lisinopril.
Type 2 diabetes
Hemoglobin A1c 8.9
Given persistent neurologic deficiencies hold oral glucose lowering medication
Continue basal bolus protocol
Initiated on Lantus. Continue dose adjustment to try to maintain glucose 140 to 180.
Initate back on Metformin on dc
cw regular diet.
DW mom at bedside
Medically stable for DC to rehab.
DW CM -await auth pending
Anticipated Discharge: Today
Subjective/Interval History
-
Date of Service: May 20, 2024
No overnight events.
Alert and awake.
Not conversive. Mom at bedside who also noticed him not conversive much today
Objective Data
-
Vital Signs:
Vital Signs
Temp Pulse Resp BP Pulse Ox
97.8 F 66 17 111/70 96
05/20/24 07:50 05/20/24 07:50 05/20/24 07:50 05/20/24 07:50 05/20/24 07:50
I&O
05/19/24 05/20/24 05/21/24
06:59 06:59 06:59
Intake Total 1080 / 1080 600 / 600
Output Total 200 / 200
Balance 880 / 880 600 / 600
Review of Systems
-
Unable to obtain full review of systems at this time due to: Other (Not conversive with me today)
Physical Exam
-
General: Comfortable
Respiratory: Non Labored Respirations; Negative Accessory Resp Muscle Use
Cardiac: Regular Rhythm and S1/S2; Negative Tachycardic
GI: Soft
Neuro: Awake and Alert; Negative No Motor Deficits (left hemiparesis)
[2024-05-20 14:30] VITALS: BP 101/66; BP 138/71; PULSE 77; O2SAT 94
--- NOTE | 2024-05-20 14:34 | CM ---
CM called [facility] ([phone]) to check auth status- informed fax not received, provided different fax number through [facility] ([phone]), call [phone] for updates, pending reference number provided [id number]. CM will continue
to follow for all discharge planning needs.
Plan; [facility], pending insurance auth.
[2024-05-20 15:27] VITALS: BP 102/56
[2024-05-20 16:05] VITALS: BP 101/66; BP 138/71; PULSE 77; O2SAT 98
[2024-05-20 16:16] LABS: Glucose - Point of Care 134 mg/dl (70-99)
[2024-05-20] MEDS: NOVOLOG FLEXPEN-MODERATE RESISTANCE SC (16:47)
[2024-05-20] MEDS: LIPITOR 80 MG PO (17:52)
[2024-05-20 21:49] LABS: Glucose - Point of Care 326 mg/dl (70-99)
[2024-05-20] MEDS: LANTUS 0.09 UNITS SC (21:51)
[2024-05-20 23:04] VITALS: BP 147/79
[2024-05-21 07:28] VITALS: BP 120/78
[2024-05-21 07:54] LABS: Glucose - Point of Care 190 mg/dl (70-99)
[2024-05-21] MEDS: NOVOLOG FLEXPEN 3 UNITS SC ×3 (08:27→17:11)
[2024-05-21] MEDS: NOVOLOG FLEXPEN-MODERATE RESISTANCE 1 UNITS SC (08:27)
[2024-05-21] MEDS: TOPROL XL 25 MG PO (08:27)
[2024-05-21] MEDS: LOW STRENGTH ASPIRIN 81 MG PO (08:27)
[2024-05-21] MEDS: KEPPRA 500 MG PO ×2 (08:27→20:45)
[2024-05-21] MEDS: HYDROCORTISONE 1% CREAM 1 APPLIC TOPICAL ×2 (08:28→20:45)
[2024-05-21] MEDS: PROTONIX 20 MG PO (08:28)
[2024-05-21] MEDS: ZESTRIL 5 MG PO (08:28)
[2024-05-21 11:38] LABS: Glucose - Point of Care 228 mg/dl (70-99)
[2024-05-21] MEDS: NOVOLOG FLEXPEN-MODERATE RESISTANCE 6 UNITS SC (13:16)
--- NOTE | 2024-05-21 14:57 | W.PN.HOSP.TC ---
Today's Communication/Plan
-
ongoing disposition efforts
Assessment / Plan
Assessment / Plan
Impression:
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
Dense left hemiparesis
Fever
History of multiple CVA
Essential hypertension
NIDDM.
Asperger syndrome reported
Plan:
Acute likely embolic multifocal CVA.
MRI of the brain:
1. LARGE 8.6 cm ACUTE ISCHEMIC INFARCT in the ANTEROMEDIAL RIGHT FRONTAL LOBE (right anterior cerebral artery territory) containing severe cytotoxic edema.
2. Multiple small chronic infarcts in the white matter of both frontal lobes.
3. Small chronic lacunar infarcts in the basal ganglia.
4. Severe white matter leukoaraiosis in the frontal and parietal lobes.
5. Mild Wallerian degeneration in the right side of the midbrain and lisa.
6. Moderate diffuse cerebral and cerebellar volume loss.
CTA
There is absent flow/occlusion in the right anterior cerebral artery beyond the A2 segment of the right anterior cerebral artery with absent flow in the proximal portions of the right callosal marginal and pericallosal arteries with cross filling of
distal pericallosal branches
Risk factors dyslipidemia/LDL 147
Diabetes
ECG NSR. No known history of arrhythmias.
Echocardiogram with preserved ventricular function and no evidence for cardioembolic source
Found not to be a candidate for thrombolytics given unknown time of onset of symptoms/duration.
Initiated on dual antiplatelet therapy: Aspirin�Plavix. For 21 days with aspirin on day 22.
Statin.
Repeat MRI 05/09 with new foci of acute to subacute infarction involving parks radiata of the right parietal lobe and anterior and inferior left cerebral hemisphere.
In addition there is a hemorrhagic component at the right REMI infarct territory
MRV negative for thrombosis
DIAMANTE 05/10 with no evidence of cardioembolic source.
Initially on DAPT with Aspirin and Plavix, although with concern for hemorrhagic conversion as well as no evidence of intracranial stenosis on imaging Plavix had been discontinued on 05/09
Clinical concern for embolic CVA, although no documented arrhythmia on presentation and ongoing telemetry. May require outpatient cardiac monitoring.
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
Concern for subclinical seizures given persistent lethargy
Repeated EEG with no epileptic activity.
Continue Keppra 5 mg every 12 hours
Continue to monitor mental status closely
Aspiration risk.
Speech evaluation daily including VSE on 05/06
Aspiration precautions
Initiated on modified diet.
New onset of fever 05/03 - 05/04.No eecurrence
Concern for evolving infection/sepsis: At risk for aspiration, UTI
Sepsis workup with negative
Initiated empiric antibiotics but discontinued on 05/05
Keep IDDSI 6 diet and thin liquids while administering oral medications with caution.
Essential hypertension
Adjust antihypertensive regimen with increased dose of Toprol and addition of lisinopril.
Type 2 diabetes
Hemoglobin A1c 8.9
Given persistent neurologic deficiencies hold oral glucose lowering medication
Continue basal bolus protocol
Initiated on Lantus. Continue dose adjustment to try to maintain glucose 140 to 180.
Initate back on Metformin on dc
Remains Medically stable for DC to rehab.
DW CM -await auth pending
Anticipated Discharge: Within 24 hours
Subjective/Interval History
-
Date of Service: May 21, 2024
No overnight events
Objective Data
-
Vital Signs:
Vital Signs
Temp Pulse Resp BP Pulse Ox
98.3 F 92 16 120/78 96
05/21/24 07:28 05/21/24 07:28 05/21/24 07:28 05/21/24 07:28 05/21/24 07:28
I&O
05/20/24 05/21/24 05/22/24
06:59 06:59 06:59
Intake Total 600 / 600 480 / 480
Balance 600 / 600 480 / 480
Review of Systems
-
Unable to obtain full review of systems at this time due to: Other (not much conversive today again but apparently was talking to RN)
Physical Exam
-
General: Comfortable
Respiratory: Non Labored Respirations; Negative Accessory Resp Muscle Use
Cardiac: Regular Rhythm and S1/S2; Negative Tachycardic
Neuro: Awake and Alert
Psych: Calm
[2024-05-21 15:21] VITALS: BP 123/71
[2024-05-21 16:16] VITALS: BP 114/66; BP 119/77; PULSE 79; PULSE 87; O2SAT 95
[2024-05-21 16:26] LABS: Glucose - Point of Care 233 mg/dl (70-99)
[2024-05-21] MEDS: LIPITOR 80 MG PO (17:11)
[2024-05-21] MEDS: NOVOLOG FLEXPEN-MODERATE RESISTANCE 3 UNITS SC (17:11)
[2024-05-21 22:06] LABS: Glucose - Point of Care 259 mg/dl (70-99)
[2024-05-21] MEDS: LANTUS 0.09 UNITS SC (22:32)
[2024-05-21 23:24] VITALS: BP 134/75
[2024-05-22 07:00] VITALS: BP 140/80
[2024-05-22 07:46] LABS: Glucose - Point of Care 165 mg/dl (70-99)
[2024-05-22] MEDS: NOVOLOG FLEXPEN-MODERATE RESISTANCE 1 UNITS SC (08:30)
[2024-05-22] MEDS: HYDROCORTISONE 1% CREAM 1 APPLIC TOPICAL ×2 (08:30→20:51)
[2024-05-22] MEDS: NOVOLOG FLEXPEN 3 UNITS SC ×3 (08:30→17:43)
[2024-05-22] MEDS: KEPPRA 500 MG PO ×2 (08:31→20:51)
[2024-05-22] MEDS: ZESTRIL 5 MG PO (08:31)
[2024-05-22] MEDS: TOPROL XL 25 MG PO (08:31)
[2024-05-22] MEDS: PROTONIX 20 MG PO (08:31)
[2024-05-22] MEDS: LOW STRENGTH ASPIRIN 81 MG PO (08:31)
[2024-05-22 11:26] LABS: Glucose - Point of Care 226 mg/dl (70-99)
[2024-05-22] MEDS: NOVOLOG FLEXPEN-MODERATE RESISTANCE 3 UNITS SC ×2 (12:14→17:44)
[2024-05-22 15:00] VITALS: BP 141/77
--- NOTE | 2024-05-22 15:44 | W.PN.HOSP.TC ---
Today's Communication/Plan
-
Await placement
Assessment / Plan
Assessment / Plan
Impression:
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
Dense left hemiparesis
Fever
History of multiple CVA
Essential hypertension
NIDDM.
Asperger syndrome reported
Plan:
Acute likely embolic multifocal CVA.
MRI of the brain:
1. LARGE 8.6 cm ACUTE ISCHEMIC INFARCT in the ANTEROMEDIAL RIGHT FRONTAL LOBE (right anterior cerebral artery territory) containing severe cytotoxic edema.
2. Multiple small chronic infarcts in the white matter of both frontal lobes.
3. Small chronic lacunar infarcts in the basal ganglia.
4. Severe white matter leukoaraiosis in the frontal and parietal lobes.
5. Mild Wallerian degeneration in the right side of the midbrain and lisa.
6. Moderate diffuse cerebral and cerebellar volume loss.
CTA
There is absent flow/occlusion in the right anterior cerebral artery beyond the A2 segment of the right anterior cerebral artery with absent flow in the proximal portions of the right callosal marginal and pericallosal arteries with cross filling of
distal pericallosal branches
Risk factors dyslipidemia/LDL 147
Diabetes
ECG NSR. No known history of arrhythmias.
Echocardiogram with preserved ventricular function and no evidence for cardioembolic source
Found not to be a candidate for thrombolytics given unknown time of onset of symptoms/duration.
Initiated on dual antiplatelet therapy: Aspirin�Plavix. For 21 days with aspirin on day 22.
Statin.
Repeat MRI 05/09 with new foci of acute to subacute infarction involving parks radiata of the right parietal lobe and anterior and inferior left cerebral hemisphere.
In addition there is a hemorrhagic component at the right REMI infarct territory
MRV negative for thrombosis
DIAMANTE 05/10 with no evidence of cardioembolic source.
Initially on DAPT with Aspirin and Plavix, although with concern for hemorrhagic conversion as well as no evidence of intracranial stenosis on imaging Plavix had been discontinued on 05/09
Clinical concern for embolic CVA, although no documented arrhythmia on presentation and ongoing telemetry. May require outpatient cardiac monitoring.
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
Concern for subclinical seizures given persistent lethargy
Repeated EEG with no epileptic activity.
Continue Keppra 5 mg every 12 hours
Continue to monitor mental status closely
Aspiration risk.
Speech evaluation daily including VSE on 05/06
Aspiration precautions
Initiated on modified diet.
New onset of fever 05/03 - 05/04.No eecurrence
Concern for evolving infection/sepsis: At risk for aspiration, UTI
Sepsis workup with negative
Initiated empiric antibiotics but discontinued on 05/05
Keep IDDSI 6 diet and thin liquids while administering oral medications with caution.
Essential hypertension
Adjust antihypertensive regimen with increased dose of Toprol and addition of lisinopril.
Type 2 diabetes
Hemoglobin A1c 8.9
Given persistent neurologic deficiencies hold oral glucose lowering medication
Continue basal bolus protocol
Initiated on Lantus. Continue dose adjustment to try to maintain glucose 140 to 180.
Initate back on Metformin on dc
Remains Medically stable for DC to rehab.
DW CM -await auth pending
Anticipated Discharge: Within 24 hours
Subjective/Interval History
-
Date of Service: May 22, 2024
No overnight events.
Objective Data
-
Vital Signs:
Vital Signs
Temp Pulse Resp BP Pulse Ox
97.2 F 79 20 141/77 97
05/22/24 15:00 05/22/24 15:00 05/22/24 15:00 05/22/24 15:00 05/22/24 15:00
I&O
05/21/24 05/22/24 05/23/24
06:59 06:59 06:59
Intake Total 480 / 480 850 / 850
Balance 480 / 480 850 / 850
Review of Systems
-
Unable to obtain full review of systems at this time due to: Other (minimal conversation)
Physical Exam
-
General: Comfortable
Respiratory: Non Labored Respirations; Negative Accessory Resp Muscle Use
Cardiac: Regular Rhythm and S1/S2
Neuro: Awake and Alert
Psych: Calm
[2024-05-22 16:39] LABS: Glucose - Point of Care 223 mg/dl (70-99)
[2024-05-22] MEDS: LIPITOR 80 MG PO (17:43)
[2024-05-22 21:38] LABS: Glucose - Point of Care 228 mg/dl (70-99)
[2024-05-22] MEDS: LANTUS 0.09 UNITS SC (22:43)
[2024-05-22 23:29] VITALS: BP 131/75
[2024-05-23 07:45] VITALS: BP 148/91
[2024-05-23 07:48] LABS: Glucose - Point of Care 210 mg/dl (70-99)
[2024-05-23] MEDS: NOVOLOG FLEXPEN 3 UNITS SC ×2 (08:18→12:46)
[2024-05-23] MEDS: NOVOLOG FLEXPEN-MODERATE RESISTANCE 3 UNITS SC (08:19)
[2024-05-23] MEDS: HYDROCORTISONE 1% CREAM 1 APPLIC TOPICAL (08:20)
[2024-05-23] MEDS: KEPPRA 500 MG PO (08:21)
[2024-05-23] MEDS: TOPROL XL 25 MG PO (08:21)
[2024-05-23] MEDS: ZESTRIL 5 MG PO (08:21)
[2024-05-23] MEDS: PROTONIX 20 MG PO (08:21)
[2024-05-23] MEDS: LOW STRENGTH ASPIRIN 81 MG PO (08:21)
--- NOTE | 2024-05-23 10:27 | CM ---
Addendum entered by Maritza Espinosa 05/23/24 14:38:
Transport scheduled for 3:00 p.m. MA51 form faxed to [facility] per facility request.
Original Note:
CM received voicemail from patients insurance, auth approved 05/20-05/31, skilled level 2, auth #[id number]. Provide updates to , fax- [phone]. Call placed to patients sister, Poornima, to provide update, anticipating ambulance
transport for 3:00 p.m. [facility] at [facility] updated. CM will continue to follow for all discharge planning needs.
Plan; [facility], awaiting ambulance transport.
Report: [phone]
[2024-05-23 11:40] VITALS: BP 123/79
[2024-05-23 12:09] VITALS: BP 123/79
[2024-05-23 12:18] LABS: Glucose - Point of Care 197 mg/dl (70-99)
[2024-05-23] MEDS: NOVOLOG FLEXPEN-MODERATE RESISTANCE 1 UNITS SC (12:47)
--- NOTE | 2024-05-23 14:48 | W.PN.HOSP.TC ---
Today's Communication/Plan
-
dc to SNF today
Assessment / Plan
Assessment / Plan
Impression:
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
Dense left hemiparesis
Fever
History of multiple CVA
Essential hypertension
NIDDM.
Asperger syndrome reported
Plan:
Acute likely embolic multifocal CVA.
MRI of the brain:
1. LARGE 8.6 cm ACUTE ISCHEMIC INFARCT in the ANTEROMEDIAL RIGHT FRONTAL LOBE (right anterior cerebral artery territory) containing severe cytotoxic edema.
2. Multiple small chronic infarcts in the white matter of both frontal lobes.
3. Small chronic lacunar infarcts in the basal ganglia.
4. Severe white matter leukoaraiosis in the frontal and parietal lobes.
5. Mild Wallerian degeneration in the right side of the midbrain and lisa.
6. Moderate diffuse cerebral and cerebellar volume loss.
CTA
There is absent flow/occlusion in the right anterior cerebral artery beyond the A2 segment of the right anterior cerebral artery with absent flow in the proximal portions of the right callosal marginal and pericallosal arteries with cross filling of
distal pericallosal branches
Risk factors dyslipidemia/LDL 147
Diabetes
ECG NSR. No known history of arrhythmias.
Echocardiogram with preserved ventricular function and no evidence for cardioembolic source
Found not to be a candidate for thrombolytics given unknown time of onset of symptoms/duration.
Initiated on dual antiplatelet therapy: Aspirin�Plavix. For 21 days with aspirin on day 22.
Statin.
Repeat MRI 05/09 with new foci of acute to subacute infarction involving parks radiata of the right parietal lobe and anterior and inferior left cerebral hemisphere.
In addition there is a hemorrhagic component at the right REMI infarct territory
MRV negative for thrombosis
DIAMANTE 05/10 with no evidence of cardioembolic source.
Initially on DAPT with Aspirin and Plavix, although with concern for hemorrhagic conversion as well as no evidence of intracranial stenosis on imaging Plavix had been discontinued on 05/09
Clinical concern for embolic CVA, although no documented arrhythmia on presentation and ongoing telemetry. May require outpatient cardiac monitoring.
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
Concern for subclinical seizures given persistent lethargy
Repeated EEG with no epileptic activity.
Continue Keppra 500 mg bid
Continue to monitor mental status closely
Aspiration risk.
Speech evaluation daily including VSE on 05/06
Aspiration precautions
Initiated on modified diet.
New onset of fever 05/03 - 05/04.No recurrence
Concern for evolving infection/sepsis: At risk for aspiration, UTI
Sepsis workup with negative
Initiated empiric antibiotics but discontinued on 05/05
Keep IDDSI 6 diet and thin liquids while administering oral medications with caution.
Essential hypertension
Adjust antihypertensive regimen with increased dose of Toprol and addition of lisinopril.
Type 2 diabetes
Hemoglobin A1c 8.9
Given persistent neurologic deficiencies hold oral glucose lowering medication
Continue basal bolus protocol
Initiated on Lantus. Continue dose adjustment to try to maintain glucose 140 to 180.
Initiate back on Metformin on dc
Remains Medically stable for DC to rehab.
More than 30 minutes spent in discharge including
Final examination of the patient
Summarizing hospital stay
Instructions for continuing care to all relevant caregivers
Preparation of discharge records, prescriptions, and referral forms
Total time spent (in minutes): 41
Anticipated Discharge: Today
Subjective/Interval History
-
Date of Service: May 23, 2024
no complaints
for DC today
Objective Data
-
Vital Signs:
Vital Signs
Temp Pulse Resp BP Pulse Ox
97.5 F 79 17 123/79 97
05/23/24 12:09 05/23/24 12:09 05/23/24 12:09 05/23/24 12:09 05/23/24 12:09
I&O
05/22/24 05/23/24 05/24/24
06:59 06:59 06:59
Intake Total 850 / 850
Balance 850 / 850
Physical Exam
-
General: No Apparent Distress
HEENT: Normocephalic and Atraumatic
Respiratory: Negative Wheezes
Cardiac: Regular Rhythm and S1/S2
GI: Soft
Genito-urinary: No Costovertebral Tender
Musculoskeletal: No Edema
Neuro: AO x 3
Psych: Calm
Data Reviewed
-
Total Time Spent with Patient (in minutes): 41
Labs: Labs Reviewed by me
--- NOTE | 2024-05-23 14:55 | W.DS.TRANS ---
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
-
Discharge Instructions:
Discharge Diagnosis/Procedures Acute CVA R frontal lobe, Loop recorder implant
05/12
Diet Diabetic, Carb Controlled
Activity As tolerated
Bathing Restrictions After dressing removed
Other Services OT,PT,ST
Instructions:
Stand-Alone Forms: DC Inst - Implanted Device
Changes to Home Medications: Yes
Discharge Medications:
DC Medications w/original date entered in [facility]
furosemide 20 mg tablet (Lasix) 20 mg PO DAILY 05/01/24
azelastine 137 mcg (0.1 %) nasal spray 1 spray intranasal BID 05/10/24
metformin 500 mg tablet 500 mg PO BID 05/10/24
aspirin 81 mg chewable tablet 81 mg PO DAILY #100 tabs 05/23/24
atorvastatin 80 mg tablet 80 mg PO QPM #30 tabs 05/23/24
insulin aspart U-100 100 unit/mL (3 mL) subcutaneous pen 3 unit (0.03 mL) SC AC #15 mL 05/23/24
insulin glargine 100 unit/mL (3 mL) subcutaneous pen (Lantus Solostar U-100 Insulin) 9 unit (0.09 mL) SC QPM #15 mL 05/23/24
levetiracetam 500 mg tablet 500 mg PO BID #60 tabs 05/23/24
lisinopril 5 mg tablet 5 mg PO DAILY #30 tabs 05/23/24
metoprolol succinate 25 mg tablet,extended release 24 hr 25 mg PO DAILY #30 tabs 05/23/24
pantoprazole 20 mg tablet,delayed release 20 mg PO DAILY #30 tabs 05/23/24
Home Medication Changes
actos, glipizide stopped
Pending Results: No
Total time spent discharging patient (in min): 42
[2024-05-23 15:18] VITALS: BP 116/66
--- NOTE | 2024-05-23 17:05 | PTCARENOTE ---
Called [facility] for report. The prince frederick sent my call to the floor which went directly to [employer]. I left a message with my name and the pt that I was going to give report on, with the phone number to call us back.
== END 2024-05-23 17:14 | DRG 40 ==
LOC: 4 WEST ACU 23:29
PROVIDERS: Emergency Medicine; Hospitalist; Internal Medicine; Internal Medicine Cardiovascular Disease; Registered Nurse Critical Care Medicine; ADMITTING PHYSICIAN Internal Medicine; ATTENDING PHYSICIAN Internal Medicine; CONSULT PHYSICIAN Internal Medicine Cardiovascular Disease; CONSULT PHYSICIAN Physical Medicine & Rehabilitation; CONSULT PHYSICIAN Psychiatry & Neurology Neurology; EMERGENCY PHYSICIAN Emergency Medicine; OTHER PHYSICIAN Internal Medicine Infectious Disease; OTHER PHYSICIAN Psychiatry & Neurology Neurology
PROC: B24BZZ4 Ultrasonography of Heart with Aorta, Transesophageal (ICD-10-PCS; 2024-05-10)
PROC: 0JH632Z Insertion of Monitoring Device into Chest Subcutaneous Tissue and Fascia, Percutaneous Approach (ICD-10-PCS; 2024-05-12)
DX: I63.421 Cerebral infarction due to embolism of right anterior cerebral artery (principal); G93.41 Metabolic encephalopathy; G93.6 Cerebral edema; G81.94 Hemiplegia, unspecified affecting left nondominant side; F84.5 Asperger's syndrome; G99.2 Myelopathy in diseases classified elsewhere; G93.49 Other encephalopathy; I63.411 Cerebral infarction due to embolism of right middle cerebral artery; M48.02 Spinal stenosis, cervical region; R29.810 Facial weakness; D64.9 Anemia, unspecified; E11.65 Type 2 diabetes mellitus with hyperglycemia; E78.00 Pure hypercholesterolemia, unspecified; G31.9 Degenerative disease of nervous system, unspecified; R50.9 Fever, unspecified; N41.1 Chronic prostatitis; R47.01 Aphasia; G93.89 Other specified disorders of brain; R56.9 Unspecified convulsions; N40.0 Benign prostatic hyperplasia without lower urinary tract symptoms; I11.9 Hypertensive heart disease without heart failure; Z60.2 Problems related to living alone; V47.5XXA Car driver injured in collision with fixed or stationary object in traffic accident, initial encounter; Y93.89 Activity, other specified; Y92.481 Parking lot as the place of occurrence of the external cause; Z88.0 Allergy status to penicillin; Z86.73 Personal history of transient ischemic attack (TIA), and cerebral infarction without residual deficits; Z91.81 History of falling; Z79.02 Long term (current) use of antithrombotics/antiplatelets; Z79.82 Long term (current) use of aspirin; Z75.1 Person awaiting admission to adequate facility elsewhere
CPT/HCPCS: 0042T; 33285; 70450; 70496; 70498; 70546; 70551; 71046; 74230; 80048; 80053; 80061; 80306; 81003; 82962; 83036; 83516; 83605; 83721; 83735; 84484; 85025; 85027; 85610; 85652; 85730; 86038; 86140; 87040; 87389; 92507; 92523; 92526; 92610; 92611; 93005; 93306; 93312; 93320; 93325; 95816; 97110; 97112; 97129; 97163; 97167; 97530; 97535; 99291; A9585; C1764; Q9967

== ENCOUNTER 2024-11-15 16:37 | Inpatient (IN) | payer MEDICARE, OTHER, SELFPAY ==
[2024-11-15 12:44] VITALS: BP 133/79
[2024-11-15 12:45] LABS: Glucose - Point of Care 208 mg/dl (70-99)
--- NOTE | 2024-11-15 12:53 | ED.GENMED ---
History of Present Illness
General
Chief Complaint: Blood Sugar Problem
Source: patient
Exam Limitations: non verbal-adult
Time Seen by Provider: 11/15/24 12:41
Nursing documentation reviewed up to this point in time: agreed with
History of Present Illness
History of Present Illness:
64-year-old male prior stroke diabetic from [facility] presents with vomiting elevated blood sugar patient appears to be aphasic
Patient appears to be alert denies any pain
Past History
Past History
ED Past Medical History: CVA, Hypercholesterolemia and IDDM
ED Past Surgical History: Urological
Social History
Tobacco: Non-smoker
Alcohol: Former
Drug: None
Living: senior care
Employment: Not employed
Review of Systems
Review of Systems
All Other Systems: Not applicable
Phy Exam
Physical Exam
Physical Exam:
Physical Exam
General: Chronically ill-appearing man
Neck: Dry
Heart: s1/s2 regular rate and rhythm, no murmur. equal radial pulses.
Lungs: no acute respiratory distress. clear bilaterally
Abdomen: Soft not tender
Neuro: Expressive aphasia left-sided please
Skin: no rash
Psychiatric: Flat affect
Extremities: no edema.
Course
Orders/Labs/Results
Orders:
Orders
11/15/24 12:52
Electrocardiogram (*1) Stat
Reason for Study: Abdominal Pain
Cardiac Monitoring- Treatment ONCE
EKG- Treatment ONCE
IV Insert/Care/Rem.- Treatment PRN
0.9% Sodium Chloride 1000 ml [Nss] 1,000 ml IV BOLUS
Ondansetron Injectable [Zofran] 4 mg IV NOW STA
Pantoprazole [Protonix IV] 40 mg IV NOW STA
CR Obstruct Series W/pa Chest Urgent
Comment:
Reason For Exam: vomiting
11/15/24 12:57
Complete Blood Count/With Diff Urgent
Comprehensive Metabolic Panel Urgent
Troponin I Urgent
11/15/24 13:02
Lidocaine 2% [Lidocaine Uro-Jet 2%] 1 syringe .ROUTE .[facility] [place]
11/15/24 13:18
Urinalysis Reflex To Culture Urgent
Date Specimen was Collected: 11/15/24
Time Specimen was Collected: 12:56
Urine Microscopic Reflex Cult Urgent
Urine Culture Urgent
PARRISH Source: U
Specimen Description:
Date Specimen was Collected: 11/15/24
Time Specimen was Collected: 12:56
Abnormal Lab Results
11/15/24 11/15/24 11/15/24
12:43 12:57 13:18
WBC 15.3 H 10^3/uL
(4.8-10.8)
MPV 12.4 H fL
(7.4-10.4)
Abs Immat Gran (auto) 0.1 H 10^3/uL
(0-0.05)
Absolute Neuts (auto) 13.7 H 10^3/uL
(1.4-6.5)
Absolute Lymphs (auto) 0.5 L 10^3/uL
(1.2-3.4)
Absolute Monos (auto) 0.9 H 10^3/uL
(0.1-0.6)
Neutrophils % 89.8 H %
(42.2-75.2)
Lymphocytes % 3.5 L %
(20.5-51.1)
BUN 22 H mg/dl
(9-20)
Glucose 225 H mg/dl
(70-99)
Urine Ketones 3+ A
(Negative)
Ur Occult Blood Reflex 1+ A
(Negative)
Leukocyte Esterase Rfl 3+ A
(Negative)
Urine Glucose 4+ A
(Negative)
Urine Albumin (Reflex) 2+ A
(Neg - Trace)
POC Glucose 208 H mg/dl
(70-99)
11/15/24 12:57
11/15/24 12:57
Vital Signs
Initial and Last Documented VS:
Initial Vital Signs
Temp Pulse Resp BP Pulse Ox
97.5 F 71 20 133/79 98
11/15/24 12:44 11/15/24 12:44 11/15/24 12:44 11/15/24 12:44 11/15/24 12:44
Last Documented Vital Signs
Temp Pulse Resp BP Pulse Ox
97.5 F 75 18 130/75 98
11/15/24 12:44 11/15/24 14:21 11/15/24 13:30 11/15/24 13:00 11/15/24 13:00
MDM/Problems Addressed
Differential Diagnosis Includes:
Enteritis bowel obstruction DKA HHNK viral syndrome
MDM/Problems Addressed:
Vomiting
Chronic conditions affecting care: DM and Neurological disorder
Acute Exacerbation and/or Progression of Chronic Illness: DM and Neurological disorder
*Radiology
Radiology exam reviewed: preliminary read by ED provider
*Pulse Oximetry
Patient hypoxic: no
*EKG
Interpreted by ED Provider?: Yes
Interpretation: normal
Comparison EKG: no comparison EKG present
Heart Rate: 78
Rate: normal
Rhythm: sinus
Ischemia: non-specific ST changes
*[employer] Curriculum Developer Interpretation
Rate: normal
Interpretation: normal
Heart Rate: 78
Rhythm: sinus
*Critical Care Note
Total Time (30-74mins, 75-104mins- exclusive of procedures): Not Applicable
Update Note
Update Note:
1:30 PM labs EKG noted is not acidotic obstruction series is pending
2:30 PM x-ray report noted patient appears well will try to feed him see how he does sister updated
ED Attending Note
-
Portions of this chart may have been created with voice recognition software.� Occasional wrong word or��sound alike� substitutions may have occurred due to the inherent limitations of voice recognition software.
Discharge Plan
Departure
Prescriptions:
No Action
furosemide [Lasix] 20 mg Tablet
20 mg PO DAILY
metformin 500 mg Tablet
500 mg PO BID
azelastine 137 mcg (0.1 %) [place],Non-Aerosol
1 spray INTRANASAL BID
atorvastatin 80 mg Tablet
80 mg PO QPM Qty: 30 0RF
levetiracetam 500 mg Tablet
500 mg PO BID Qty: 60 0RF
pantoprazole 20 mg Tablet,Delayed Release (Dr/Ec)
20 mg PO DAILY Qty: 30 0RF
aspirin 81 mg Tablet,Chewable
81 mg PO DAILY Qty: 100 0RF
lisinopril 5 mg Tablet
5 mg PO DAILY Qty: 30 0RF
metoprolol succinate 25 mg Tablet Extended Release 24 Hr
25 mg PO DAILY Qty: 30 0RF
insulin aspart U-100 100 unit/mL (3 mL) Insulin Pen
3 unit SC AC Qty: 15 0RF
insulin glargine [Lantus Solostar U-100 Insulin] 100 unit/mL (3 mL) insulin pen
9 unit SC QPM Qty: 15 0RF
Referrals:
Harinder Mars I., DO [Family Provider] -
Interventions
Interventions:
*Risk Screen - Suicide Last Done: 11/15/24 12:51
*General Assessment Last Done: 11/15/24 12:51
*Neglect/Abuse Screening Last Done: 11/15/24 12:51
*ED- Fall Risk Assessment Last Done: 11/15/24 12:51
*ED COVID-19 Vaccine History Last Done: 11/15/24 12:51
ED- Neurological Assessment Last Done: 11/15/24 14:23
Discharge Date and Time
Print Language: GAMBIAN
[2024-11-15] MEDS: NSS 1000 IV ×2 (12:59→16:03)
[2024-11-15 13:00] VITALS: BP 130/75
[2024-11-15] MEDS: PROTONIX IV 40 MG IV (13:00)
[2024-11-15] MEDS: ZOFRAN 4 MG IV (13:00)
[2024-11-15 13:09] LABS: % Basophils 0.3 % (0-2); % Immature Granulocytes 0.5 % (0-0.5); % Lymphocytes 3.5 % (20.5-51.1); % Monocytes 5.9 % (1.7-9.3); % Neutrophils 89.8 % (42.2-75.2); Absolute Basophils 0.1 10^3/uL (0-0.2); Absolute Immature Granulocytes 0.1 10^3/uL (0-0.05); Absolute Lymphocytes 0.5 10^3/uL (1.2-3.4); Absolute Monocytes 0.9 10^3/uL (0.1-0.6); Absolute Neutrophils 13.7 10^3/uL (1.4-6.5); Hematocrit 44.1 % (39.0-52.0); Hemoglobin 14.8 g/dL (13.0-18.0); Mean Corp Hgb Conc. 33.6 g/dL (33.0-37.0); Mean Corpuscular Hgb 29.1 pg (27.0-31.0); Mean Corpuscular Volume 86.6 fL (80.0-94.0); Mean Platelet Volume 12.4 fL (7.4-10.4); Nucleated Red Blood Cells % 0 % (-); Platelet Count 160 10^3/uL (130-400); Red Blood Cell Count 5.09 10^6/uL (4.70-6.10); Red Cell Dist. Width 12.5 % (11.5-14.5); White Blood Cell Count 15.3 10^3/uL (4.8-10.8)
[2024-11-15 13:20] LABS: ALT (SGPT) 22 U/L (0-50); AST (SGOT) 20 U/L (17-59); Albumin 4.7 g/dl (3.5-5.0); Alkaline Phosphatase 104 U/L (38-126); Blood Urea Nitrogen 22 mg/dl (9-20); Calcium 10.1 mg/dl (8.4-10.2); Carbon Dioxide 28 mmol/L (22-30); Chloride 102 mmol/L (98-107); Estimated Creatinine Clearance 79 ml/min; Glucose 225 mg/dl (70-99); Potassium 4.8 mmol/L (3.5-5.1); Sodium 143 mmol/L (135-145); Total Bilirubin 0.6 mg/dl (0.2-1.3); Total Protein 7.6 g/dl (6.3-8.2); eGFR > 60.00
[2024-11-15 13:31] LABS: Troponin I < 0.012 ng/ml
[2024-11-15 13:53] LABS: Urine Albumin 2+ (Neg - Trace); Urine Bilirubin Negative (Negative); Urine Character Clear (Clear); Urine Color Yellow; Urine Glucose 4+ (Negative); Urine Ketone 3+ (Negative); Urine Leukocyte 3+ (Negative); Urine Nitrite Negative (Negative); Urine Occult Blood 1+ (Negative); Urine Urobilinogen Negative (Neg - 1+)
[2024-11-15 14:09] VITALS: BMI 18.3
[2024-11-15 14:41] LABS: Urine Squamous Cell 0-2 /LPF (Few)
[2024-11-15 14:42] LABS: Urine Bacteria Few (Negative); Urine White Cell 16-20 /HPF (0-5)
--- NOTE | 2024-11-15 16:23 | HPS.HSE ---
Family Physician
-
Family Physician: Harinder Mars
Chief Complaint
-
Vomiting
History of Present Illness
Patient is 64 years old with a history of stroke, insulin-dependent diabetes mellitus, hypertension, hyperlipidemia, GERD who came [facility] the [facility] from [facility] with vomiting and elevated blood sugar.
Met with the patient and his sister at bedside who provide history, patient is answering yes or no question but based on the sister at bedside he was having issues with vomiting since yesterday, denies any recent fever or chills at home, no coughing
or shortness of breath or chest pain.
Blood work done in the ER shows leukocytosis and CT chest abdomen pelvis done shows no evidence of intra-abdominal pathology but concern for pneumonia, discussed with sister.
Patient received Zofran and [facility] which did not help.
Also sister stated that he had significant weight loss recently.
Medical History
Past Medical History
Past Medical History: Reports CVA, GERD, HTN and Hypercholesterolemia
Past Surgical History: Reports Urological
Social History
Tobacco: Non-smoker
Alcohol: Former
Living: [facility]
Family History
Family History: Not pertinent
Allergies / Home Medications
Allergies reflects when Allergies were last updated in [facility].
Home Medications with original date entered in [facility]
Allergy/Medication List:
Allergies
Allergy/AdvReac Type Severity Reaction Status Date / Time
Penicillins Allergy Unknown Verified 05/01/24 21:59
Home Medications
azelastine 137 mcg (0.1 %) nasal spray 1 spray intranasal [id number] PRN allergic rhinitis 05/10/24
metformin 500 mg tablet 500 mg PO BID 05/10/24
aspirin 81 mg chewable tablet 81 mg PO DAILY #100 tabs 05/23/24
atorvastatin 80 mg tablet 80 mg PO QPM #30 tabs 05/23/24
levetiracetam 500 mg tablet 500 mg PO BID #60 tabs 05/23/24
lisinopril 5 mg tablet 5 mg PO DAILY #30 tabs 05/23/24
metoprolol succinate 25 mg tablet,extended release 24 hr 25 mg PO DAILY #30 tabs 05/23/24
pantoprazole 20 mg tablet,delayed release 20 mg PO DAILY #30 tabs 05/23/24
Semglee Pen U-100 Insulin 11 units SC HS 11/15/24
acetaminophen 325 mg tablet 650 mg PO Q4HPRN PRN mild pain/temp>100 11/15/24
bisacodyl 10 mg rectal suppository (Dulcolax (bisacodyl)) 10 mg [place] DAILYPRN PRN MOM ineffective after 24hrs 11/15/24
furosemide 20 mg tablet 20 mg PO DAILY 11/15/24
insulin aspart U-100 100 unit/mL (3 mL) subcutaneous pen 8 unit SC AC 11/15/24
loratadine 10 mg tablet (Claritin) 10 mg PO DAILY 11/15/24
magnesium hydroxide 400 mg/5 mL oral suspension (Milk of Magnesia) 2,400 mg PO DAILYPRN PRN no BM in 3 days 11/15/24
mupirocin 2 % topical ointment 1 applic topical DAILYPRN PRN dislodgement 11/15/24
mupirocin 2 % topical ointment 1 applic topical QPM 11/15/24
ondansetron HCl 4 mg tablet 4 mg PO Q8HPRN PRN nausea/vommiting 11/15/24
sodium phosphates 19 gram-7 gram/118 mL enema (Fleet Enema) 118 ml [place] DAILYPRN PRN bisacodyl ineffective after 24hrs 11/15/24
tizanidine 4 mg tablet 4 mg PO TID 11/15/24
trazodone 50 mg tablet 12.5 mg PO DAILY 11/15/24
trazodone 50 mg tablet 25 mg PO HS 11/15/24
Review of Systems
-
History Source: Family
A 12 point ROS was completed and negative except as noted: Yes
Constitutional: Reports Weight Loss; Denies Fever, Weight Gain, Fatigue or Sleep Disturbance
EENT: Denies Tearing, Sore Throat, Mouth Pain, Mouth Swelling or Runny Nose
Respiratory: Denies Cough, Hemoptysis or Trouble Breathing
Cardiac: Denies Chest Pain, Diaphoresis, Palpitations or Syncope
Abdomen/GI: Reports Nausea and Vomiting; Denies Abdominal Pain, Diarrhea, Constipated, Bloody Stools or Black Stools
: Denies Dysuria, Frequency, Flank Pain, Incontinence, Difficulty Voiding, Urgency, Bleeding or Dark Urine
Musculoskeletal: Denies Joint Pain, Joint Swelling, Muscle Pain, Muscle Stiffness or Edema
Skin: Denies Itching or Rash
Neurological: Denies Dizzy, Headache, Weakness or Numbness
Endocrine: Denies Polyuria, Polydipsia or Temp Intolerance
Hematologic/Lymphatic: Denies Bleeding, Swollen Glands or Bruising
Psych: Reports Calm; Denies Depression, Anxiety or Panic Disorder
Physical Exam
Vital Signs
Vital Signs
Temp Pulse Resp BP Pulse Ox
97.5 F 70 14 130/75 98
11/15/24 12:44 11/15/24 15:15 11/15/24 15:15 11/15/24 13:00 11/15/24 15:15
Physical Exam
General: Well Developed, Well Nourished, No Apparent Distress, Comfortable and Good Appetite; No Pain, Chills or Sweats
HEENT: NormoCephalic, Moist mucous membranes, Atraumatic, Good Dentition, PERRLA, Nose Appears Normal and Ears Appear Normal
Respiratory: Rales
Cardiac: S1/S2 and Regular Rhythm
Breast: Deferred by me
GI: Soft, Non Tender, Non Distended and Normal Bowel Sounds
Genito-urinary: Deferred by me
Musculoskeletal: Other (Contracted left upper extremity-left foot outer surface with callus)
Skin: Warm; No Rash, Jaundice, Ulcers, Lesions or Decubitus Ulcers
Neuro: Awake, Alert, Oriented, AO x 3, No Motor Deficits, Nonfocal/grossly intact and Cranial Nerves Intact
Hematologic/Lymphatic: No Lymphadenopathy
Psych: Calm
Laboratory Results
-
11/15/24 12:57
11/15/24 12:57
Laboratory Results
Total Bilirubin 0.6 mg/dl (0.2-1.3) 11/15/24 12:57
AST 20 U/L (17-59) 11/15/24 12:57
ALT 22 U/L (0-50) 11/15/24 12:57
Alkaline Phosphatase 104 U/L (38-126) 11/15/24 12:57
Troponin I < 0.012 ng/ml 11/15/24 12:57
Data Reviewed
-
Diagnostic Radiology: Report Reviewed by me
CT Scan: Report Reviewed by me
Medical Tests (Nuc Med, Echo, EKG etc): Report Reviewed by me
Lab Data: Labs Reviewed by me
Old Records: Reviewed
Impression/Plan
-
IMPRESSION:
Patient is 64 years old with history of prior stroke, diabetes, hypertension, hyperlipidemia, GERD who came from [facility] with intractable nausea and vomiting and elevated blood pressure found to have leukocytosis and CT finding of questionable
pneumonia, patient denies coughing or shortness of breath. Vomiting not improved with Zofran.
Assessment/Plan:
Intractable nausea and vomiting
CT abdomen pelvis done in the ER showed:
No intestinal obstruction or free air.
Cannot exclude some mild patchy left basilar opacity such as subsegmental atelectasis and/or pneumonia.
Possible secondary to pneumonia
Probable underlying gastroparesis
As per sister, no improvement with Zofran
Trial of Reglan
Questionable pneumonia
Seen on CT scan start ceftriaxone/azithromycin
Leukocytosis
Continue to biotic.
Repeat CBC in AM.
Pending cultures
History of diabetes mellitus
Continue home medication
Continue Lantus and lispro as per home dose.
Hold metformin
Insulin sliding scale
Diabetic diet
Hemoglobin A1c 8.9 on May 02, 2024
Repeat hemoglobin A1c
History of hypertension
Continue home lisinopril/
History of hyperlipidemia
Continue statin
History of GERD.
Continue pantoprazole
History of CVA with residual weakness and aphasia
Continue aspirin/atorvastatin.
CODE STATUS: Full code
DVT prophylaxis: Lovenox
Diet: Soft, diabetic
Total time spent on today's encounter was 75 minutes which included time spent in counseling the patient/family regarding diagnosis and treatment plan as listed above, goals of care, and symptom management. Case was discussed with nursing staff,
specialists, and care coordinators/case management. All labs and imaging personally reviewed by me. Remainder the time spent in detailed review of previous records, lab data, imaging, and other medical provider documentation.
[2024-11-15 17:43] LABS: TSH Reflex To Free T4 0.91 uIU/ml (0.47-4.68)
[2024-11-15] MEDS: REGLAN 10 MG IV (17:54)
[2024-11-15] MEDS: ZITHROMAX INFUSION 250 IV (17:56)
[2024-11-15 18:29] VITALS: BP 137/82
[2024-11-15 19:30] VITALS: BP 125/64
[2024-11-15] MEDS: ROCEPHIN 1000 MG IV (19:56)
[2024-11-15] MEDS: STERILE WATER FOR INJECTION 10 ML IV (19:56)
[2024-11-15] MEDS: NOVOLOG FLEXPEN SC (19:56)
[2024-11-15] MEDS: KEPPRA 500 MG PO (19:57)
[2024-11-15] MEDS: LIPITOR 80 MG PO (19:57)
[2024-11-15] MEDS: LOVENOX 40 MG SC (19:57)
[2024-11-15 21:46] LABS: Glucose - Point of Care 204 mg/dl (70-99)
[2024-11-15] MEDS: DESYREL 25 MG PO (22:00)
[2024-11-15] MEDS: LANTUS 0.11 UNITS SC (22:00)
[2024-11-15] MEDS: ZANAFLEX 4 MG PO (22:01)
[2024-11-15 23:59] VITALS: BP 105/55
[2024-11-16] MEDS: NSS 1000 IV ×3 (01:11→16:02)
[2024-11-16 03:30] VITALS: BP 109/66
[2024-11-16 06:00] VITALS: BMI 19.5
[2024-11-16 07:00] VITALS: BP 105/62
[2024-11-16 08:00] LABS: Glucose - Point of Care 100 mg/dl (70-99)
[2024-11-16] MEDS: NOVOLOG FLEXPEN-LOW RESISTANCE SC (08:03)
[2024-11-16] MEDS: NOVOLOG FLEXPEN SC ×4 (08:03→16:50)
[2024-11-16] MEDS: KEPPRA 500 MG PO ×2 (08:20→21:46)
[2024-11-16] MEDS: ZESTRIL 5 MG PO (08:20)
[2024-11-16] MEDS: ZANAFLEX 4 MG PO ×3 (08:20→21:49)
[2024-11-16] MEDS: LOW STRENGTH ASPIRIN 81 MG PO (08:20)
[2024-11-16] MEDS: PROTONIX 20 MG PO (08:20)
[2024-11-16] MEDS: DESYREL 12.5 MG PO (08:21)
[2024-11-16] MEDS: TOPROL XL 25 MG PO (08:21)
[2024-11-16] MEDS: LASIX 20 MG PO (08:22)
[2024-11-16 08:42] LABS: Hematocrit 34.9 % (39.0-52.0); Hemoglobin 11.7 g/dL (13.0-18.0); Mean Corp Hgb Conc. 33.5 g/dL (33.0-37.0); Mean Corpuscular Hgb 29.3 pg (27.0-31.0); Mean Corpuscular Volume 87.5 fL (80.0-94.0); Mean Platelet Volume 12.9 fL (7.4-10.4); Platelet Count 130 10^3/uL (130-400); Red Blood Cell Count 3.99 10^6/uL (4.70-6.10); Red Cell Dist. Width 12.8 % (11.5-14.5); White Blood Cell Count 9.4 10^3/uL (4.8-10.8)
[2024-11-16 09:26] LABS: Blood Urea Nitrogen 19 mg/dl (9-20); Calcium 8.9 mg/dl (8.4-10.2); Carbon Dioxide 24 mmol/L (22-30); Chloride 111 mmol/L (98-107); Estimated Creatinine Clearance 75 ml/min; Glucose 102 mg/dl (70-99); Magnesium 1.8 mg/dl (1.6-2.3); Potassium 3.7 mmol/L (3.5-5.1); Sodium 145 mmol/L (135-145); eGFR > 60.00
[2024-11-16 10:13] LABS: Glycohemoglobin (HgbA1c) 7.6 % (4.0-5.6)
[2024-11-16 11:24] VITALS: BP 107/65
[2024-11-16 12:48] LABS: Glucose - Point of Care 163 mg/dl (70-99)
[2024-11-16] MEDS: NOVOLOG FLEXPEN-LOW RESISTANCE 1 UNITS SC ×2 (13:06→16:49)
[2024-11-16] MEDS: NOVOLOG FLEXPEN 3 UNITS SC ×2 (13:07→16:49)
--- NOTE | 2024-11-16 13:18 | W.PN.HOSP.TC ---
Today's Communication/Plan
-
Discharge tomorrow
Assessment / Plan
Assessment / Plan
IMPRESSION:
Patient is 64 years old with history of prior stroke, diabetes, hypertension, hyperlipidemia, GERD [facility] and vomiting and elevated blood pressure found to have leukocytosis and CT finding of questionable
pneumonia, patient denies coughing or shortness of breath. Vomiting not improved with Zofran.
Symptoms improved with IV antibiotic, IV fluid.
Plan to be discharged back to rehab on 11/17
Assessment/Plan:
Intractable nausea and vomiting
CT abdomen pelvis done in the ER showed:
No intestinal obstruction or free air.
Cannot exclude some mild patchy left basilar opacity such as subsegmental atelectasis and/or pneumonia.
Possible secondary to pneumonia
Probable underlying gastroparesis
As per sister, no improvement with Zofran
Trial of Reglan
11/16
Symptoms improved
Questionable pneumonia
Seen on CT scan start ceftriaxone/azithromycin
11/16
Patient denies cough
Leukocytosis
Continue to biotic.
Repeat CBC in AM.
Pending cultures
11/16
Leukocytosis
History of diabetes mellitus
Continue home medication
Continue Lantus and lispro as per home dose.
Hold metformin
Insulin sliding scale
Diabetic diet
Hemoglobin A1c 8.9 on May 02, 2024
Repeat hemoglobin A1c 7.6
History of hypertension
Continue home lisinopril
History of hyperlipidemia
Continue statin
History of GERD.
Continue pantoprazole
History of CVA with residual weakness and aphasia
Continue aspirin/atorvastatin.
CODE STATUS: Full code
DVT prophylaxis: Lovenox
Diet: Soft, diabetic
CODE STATUS: Full code
DVT prophylaxis: Lovenox
Diet: Regular diet
Total time spent on today's encounter was 55 minutes which included time spent in counseling the patient/family regarding diagnosis and treatment plan as listed above, goals of care, and symptom management. Case was discussed with nursing staff,
specialists, and care coordinators/case management. All labs and imaging personally reviewed by me. Remainder the time spent in detailed review of previous records, lab data, imaging, and other medical provider documentation.
Anticipated Discharge: Within 24 hours
Subjective/Interval History
-
Date of Service: November 16, 2024
Patient seen and examined at bedside, sister at bedside, overall symptoms improving and patient denies any nausea or vomiting.
Also more available today.
Continue antibiotic, possible discharge tomorrow back to rehab
Objective Data
-
Labs:
Laboratory Results
11/16/24
07:14
WBC 9.4
Hgb 11.7 L D
Hct 34.9 L
Plt Count 130
Sodium 145
Potassium 3.7
Chloride 111 H
Carbon Dioxide 24
BUN 19
Creatinine 0.9
Glucose 102 H
Calcium 8.9
Vital Signs:
Vital Signs
Temp Pulse Resp BP Pulse Ox
97.9 F 65 18 107/65 98
11/16/24 11:24 11/16/24 11:24 11/16/24 11:24 11/16/24 11:24 11/16/24 11:24
Physical Exam
-
General: Well Developed, Well Nourished, No Apparent Distress and Comfortable
HEENT: Normocephalic, Atraumatic, Moist Mucous Membranes, No Ptosis, PERRLA and Nose Appears Normal
Respiratory: Rales and Non Labored Respirations
Cardiac: Regular Rhythm and S1/S2
Breast: Deferred by me
GI: Soft, Nontender, Nondistended and Normal Bowel Sounds
Genito-urinary: No Costovertebral Tender
Musculoskeletal: Other (Contracted left upper EXTR-left lateral foot Callus)
Skin: Warm
Neuro: Awake, Alert, Oriented, AO x 3 and No Motor Deficits
Psych: Calm
Data Reviewed
-
Diagnostic Radiology: Image personally visualized and interpreted and Report Reviewed by me
CT Scan: Image personally visualized and interpreted and Report Reviewed by me
Ultrasound: Image personally visualized and interpreted and Report Reviewed by me
MRI: Image personally visualized and interpreted and Report Reviewed by me
Medical Tests (Nuc Med, Echo etc): Image personally visualized and interpreted and Report Reviewed by me
Labs: Labs Reviewed by me
Old Records: Reviewed
[2024-11-16 15:00] VITALS: BP 126/67
--- NOTE | 2024-11-16 15:14 | CM ---
CM reviewed chart, patient seen bedside[facility] Per [place] (liaison [facility]), patient max assist for bed mobility, dependent for transfers, supervision for grooming, dependent for toileting. Patient sister,
HILARY Mirza. CM will send return of care referral in [facility]. CM will continue to follow for all discharge planning needs.
Plan; return to [facility] when stable, will require ambulance transport.
[2024-11-16 16:39] LABS: Glucose - Point of Care 199 mg/dl (70-99)
[2024-11-16] MEDS: LIPITOR 80 MG PO (16:47)
[2024-11-16] MEDS: ZITHROMAX INFUSION 250 IV (16:47)
[2024-11-16] MEDS: LOVENOX 40 MG SC (16:48)
[2024-11-16] MEDS: ROCEPHIN 1000 MG IV (16:48)
[2024-11-16] MEDS: STERILE WATER FOR INJECTION 10 ML IV (16:48)
[2024-11-16 19:30] VITALS: BP 108/59
[2024-11-16] MEDS: DESYREL 25 MG PO (21:46)
[2024-11-16] MEDS: LANTUS 0.11 UNITS SC (21:49)
[2024-11-16 21:54] LABS: Glucose - Point of Care 167 mg/dl (70-99)
[2024-11-16 23:58] VITALS: BP 106/59
[2024-11-17 03:21] VITALS: BP 108/64
[2024-11-17 06:00] VITALS: BMI 19.0
[2024-11-17 06:57] LABS: Hematocrit 31.9 % (39.0-52.0); Hemoglobin 10.8 g/dL (13.0-18.0); Mean Corp Hgb Conc. 33.9 g/dL (33.0-37.0); Mean Corpuscular Hgb 29.3 pg (27.0-31.0); Mean Corpuscular Volume 86.4 fL (80.0-94.0); Mean Platelet Volume 12.6 fL (7.4-10.4); Platelet Count 130 10^3/uL (130-400); Red Blood Cell Count 3.69 10^6/uL (4.70-6.10); Red Cell Dist. Width 12.8 % (11.5-14.5); White Blood Cell Count 7.9 10^3/uL (4.8-10.8)
[2024-11-17 07:18] LABS: Blood Urea Nitrogen 14 mg/dl (9-20); Calcium 8.6 mg/dl (8.4-10.2); Carbon Dioxide 25 mmol/L (22-30); Chloride 112 mmol/L (98-107); Estimated Creatinine Clearance 83 ml/min; Glucose 114 mg/dl (70-99); Potassium 3.5 mmol/L (3.5-5.1); Sodium 143 mmol/L (135-145); eGFR > 60.00
[2024-11-17 07:28] VITALS: BP 108/57
[2024-11-17] MEDS: LASIX 20 MG PO (07:50)
[2024-11-17] MEDS: TOPROL XL 25 MG PO (07:51)
[2024-11-17] MEDS: DESYREL 12.5 MG PO (07:51)
[2024-11-17] MEDS: ZANAFLEX 4 MG PO (07:51)
[2024-11-17] MEDS: KEPPRA 500 MG PO (07:51)
[2024-11-17] MEDS: LOW STRENGTH ASPIRIN 81 MG PO (07:52)
[2024-11-17] MEDS: NOVOLOG FLEXPEN 8 UNITS SC ×2 (07:52→12:49)
[2024-11-17] MEDS: NOVOLOG FLEXPEN 3 UNITS SC ×2 (07:52→12:49)
[2024-11-17] MEDS: ZESTRIL 5 MG PO (07:52)
[2024-11-17] MEDS: PROTONIX 20 MG PO (07:52)
[2024-11-17 07:54] LABS: Glucose - Point of Care 112 mg/dl (70-99)
[2024-11-17] MEDS: NOVOLOG FLEXPEN-LOW RESISTANCE SC ×2 (07:54→12:48)
[2024-11-17 10:27] VITALS: BMI 19.0
[2024-11-17 11:33] VITALS: BP 106/58
--- NOTE | 2024-11-17 11:51 | W.PN.HOSP.TC ---
Today's Communication/Plan
-
Discharge to SNF today
Assessment / Plan
Assessment / Plan
IMPRESSION:
Patient is 64 years old with history of prior stroke, diabetes, hypertension, hyperlipidemia, GERD who [facility] with intractable nausea and vomiting and elevated blood pressure found to have leukocytosis and CT finding of questionable
pneumonia, patient denies coughing or shortness of breath. Vomiting not improved with Zofran.
Symptoms improved with IV antibiotic, IV fluid.
Improved leukocytosis, no nausea or vomiting.
Plan to be discharged back to rehab on 11/17
Assessment/Plan:
Intractable nausea and vomiting
CT abdomen pelvis done in the ER showed:
No intestinal obstruction or free air.
Cannot exclude some mild patchy left basilar opacity such as subsegmental atelectasis and/or pneumonia.
Possible secondary to pneumonia
Probable underlying gastroparesis
As per sister, no improvement with Zofran
Trial of Reglan
11/16
Symptoms improved
Questionable pneumonia
Seen on CT scan start ceftriaxone/azithromycin
11/16
Patient denies cough
Leukocytosis
Continue to biotic.
Repeat CBC in AM.
Pending cultures
11/16
Leukocytosis improved
History of diabetes mellitus
Continue home medication
Continue Lantus and lispro as per home dose.
Hold metformin
Insulin sliding scale
Diabetic diet
Hemoglobin A1c 8.9 on May 02, 2024
Repeat hemoglobin A1c 7.6
History of hypertension
Continue home lisinopril
History of hyperlipidemia
Continue statin
History of GERD.
Continue pantoprazole
History of CVA with residual weakness and aphasia
Continue aspirin/atorvastatin.
CODE STATUS: Full code
DVT prophylaxis: Lovenox
Diet: Soft, diabetic
Total time spent on today's encounter was 55 minutes which included time spent in counseling the patient/family regarding diagnosis and treatment plan as listed above, goals of care, and symptom management. Case was discussed with nursing staff,
specialists, and care coordinators/case management. All labs and imaging personally reviewed by me. Remainder the time spent in detailed review of previous records, lab data, imaging, and other medical provider documentation.
Anticipated Discharge: Today
Subjective/Interval History
-
Date of Service: November 17, 2024
Patient seen and examined at bedside, denies any chest pain or shortness of breath, no abdominal pain, no nausea, no vomiting, no diarrhea or constipation.
Improved leukocytosis, no nausea or vomiting plan to discharge back to rehab.
Objective Data
-
Labs:
Laboratory Results
11/17/24
06:24
WBC 7.9
Hgb 10.8 L
Hct 31.9 L
Plt Count 130
Sodium 143
Potassium 3.5
Chloride 112 H
Carbon Dioxide 25
BUN 14
Creatinine 0.8
Glucose 114 H
Calcium 8.6
Vital Signs:
Vital Signs
Temp Pulse Resp BP Pulse Ox
97.6 F 64 18 106/58 95
11/17/24 11:33 11/17/24 11:33 11/17/24 11:33 11/17/24 11:33 11/17/24 11:33
I&O
11/16/24 11/17/24 11/18/24
06:59 06:59 06:59
Intake Total 1470 / 1470
Balance 1470 / 1470
Physical Exam
-
General: Well Developed, Well Nourished, No Apparent Distress and Comfortable
HEENT: Normocephalic, Atraumatic, Moist Mucous Membranes, No Ptosis, PERRLA and Nose Appears Normal
Respiratory: Rales and Non Labored Respirations
Cardiac: Regular Rhythm and S1/S2
Breast: Deferred by me
GI: Soft, Nontender, Nondistended and Normal Bowel Sounds
Genito-urinary: No Costovertebral Tender
Musculoskeletal: Other (Contracted left upper EXTR-left lateral foot Callus)
Skin: Warm
Neuro: Awake, Alert, Oriented, AO x 3 and No Motor Deficits
Psych: Calm
Data Reviewed
-
Diagnostic Radiology: Image personally visualized and interpreted and Report Reviewed by me
CT Scan: Image personally visualized and interpreted and Report Reviewed by me
Ultrasound: Image personally visualized and interpreted and Report Reviewed by me
MRI: Image personally visualized and interpreted and Report Reviewed by me
Medical Tests (Nuc Med, Echo etc): Image personally visualized and interpreted and Report Reviewed by me
Labs: Labs Reviewed by me
Old Records: Reviewed
--- NOTE | 2024-11-17 12:09 | W.DCSUMMARY ---
Discharge Summary
Discharge Data
Date of Admission: 11/15/24
Date of Discharge: 11/17/24
-
Pending Results: No
Hospital Course
IMPRESSION:
Patient is 64 years old with history of prior stroke, diabetes, hypertension, hyperlipidemia, GERD who came from [facility] with intractable nausea and vomiting and elevated blood pressure found to have leukocytosis and CT finding of questionable
pneumonia, patient denies coughing or shortness of breath. Vomiting not improved with Zofran.
Symptoms improved with IV antibiotic, IV fluid.
Improved leukocytosis, no nausea or vomiting.
Plan to be discharged back to rehab on 11/17
Assessment/Plan:
Intractable nausea and vomiting
CT abdomen pelvis done in the ER showed:
No intestinal obstruction or free air.
Cannot exclude some mild patchy left basilar opacity such as subsegmental atelectasis and/or pneumonia.
Possible secondary to pneumonia
Probable underlying gastroparesis
As per sister, no improvement with Zofran
Trial of Reglan
11/16
Symptoms improved
Questionable pneumonia
Seen on CT scan start ceftriaxone/azithromycin
11/16
Patient denies cough
Leukocytosis
Continue to biotic.
Repeat CBC in AM.
Pending cultures
11/16
Leukocytosis improved
History of diabetes mellitus
Continue home medication
Continue Lantus and lispro as per home dose.
Hold metformin
Insulin sliding scale
Diabetic diet
Hemoglobin A1c 8.9 on May 02, 2024
Repeat hemoglobin A1c 7.6
History of hypertension
Continue home lisinopril
History of hyperlipidemia
Continue statin
History of GERD.
Continue pantoprazole
History of CVA with residual weakness and aphasia
Continue aspirin/atorvastatin.
CODE STATUS: Full code
DVT prophylaxis: Lovenox
Diet: Soft, diabetic
Total time spent on today's encounter was 40 minutes which included time spent in counseling the patient/family regarding diagnosis and treatment plan as listed above, goals of care, and symptom management. Case was discussed with nursing staff,
specialists, and care coordinators/case management. All labs and imaging personally reviewed by me. Remainder the time spent in detailed review of previous records, lab data, imaging, and other medical provider documentation.
Anticipated Discharge: Today
Discharge Plan
-
Patient Disposition: [facility]NF
Discharge Diagnosis/Procedures: Pneumonia/nausea vomiting
Diet: Diabetic, Carb Controlled and Other diet
Additional Diets: 6 Small frequent meals
Activity: With assistance
Other Services: PT and OT
Referrals:
Harinder Mars I., DO [Family Provider] -
Prescriptions:
New
cefuroxime axetil 500 mg tablet
500 mg PO BID 5 Days Qty: 10 0RF
azithromycin [Zithromax] 500 mg tablet
500 mg PO DAILY 5 Days Qty: 5 0RF
Continued
metformin 500 mg Tablet
500 mg PO BID
azelastine 137 mcg (0.1 %) [place],Non-Aerosol
1 spray INTRANASAL [id number] PRN (Reason: allergic rhinitis)
atorvastatin 80 mg Tablet
80 mg PO QPM Qty: 30 0RF
levetiracetam 500 mg Tablet
500 mg PO BID Qty: 60 0RF
pantoprazole 20 mg Tablet,Delayed Release (Dr/Ec)
20 mg PO DAILY Qty: 30 0RF
aspirin 81 mg Tablet,Chewable
81 mg PO DAILY Qty: 100 0RF
lisinopril 5 mg Tablet
5 mg PO DAILY Qty: 30 0RF
metoprolol succinate 25 mg Tablet Extended Release 24 Hr
25 mg PO DAILY Qty: 30 0RF
acetaminophen 325 mg Tablet
650 mg PO Q4HPRN MDD 3000mg PRN (Reason: mild pain/temp>100)
trazodone 50 mg Tablet
12.5 mg PO DAILY
trazodone 50 mg Tablet
25 mg PO HS
tizanidine 4 mg Tablet
4 mg PO TID
ondansetron HCl 4 mg Tablet
4 mg PO Q8HPRN PRN (Reason: nausea/vommiting)
magnesium hydroxide [Milk of Magnesia] 400 mg/5 mL Suspension
2,400 mg PO DAILYPRN PRN (Reason: no BM in 3 days)
bisacodyl [Dulcolax (bisacodyl)] 10 mg Suppository
10 mg AL DAILYPRN PRN (Reason: MOM ineffective after 24hrs)
Fleet Enema 19-7 gram/118 mL Enema
118 ml AL DAILYPRN PRN (Reason: bisacodyl ineffective after 24hrs)
mupirocin 2 % Ointment
1 applic TOPICAL QPM
Patient Comments:
left lateral foot
mupirocin 2 % Ointment
1 applic TOPICAL DAILYPRN PRN (Reason: dislodgement)
Patient Comments:
left lateral foot
furosemide 20 mg Tablet
20 mg PO DAILY
loratadine [Claritin] 10 mg Tablet
10 mg PO DAILY
insulin glargine 100 unit/mL (3 mL) Insulin Pen
11 unit SC HS
insulin aspart U-100 100 unit/mL (3 mL) insulin pen
8 unit SC AC
Discharge Orders:
Discharge Patient (As Directed); Ordered 11/17/24
Ordered By: Holly Villavicencio
Discharge Date and Time
Print Language: RWANDAN
--- NOTE | 2024-11-17 13:31 | CM ---
Patient is stable for d/c today. Patient is a LTC resident at [facility]. Patient's sister, Poornima, wanting patient to see therapy to see if he requires any rehab, however, patient is non-ambulatory and dependent at baseline. Nurse and
hospitalist discussed w/ Poornima, who is now agreeable to patient returning to SNF and assess for therapy needs as appropriate.
Spoke w/ [facility] david, agreeable to accept patient back today. Confirmed patient is total care
Ambulance transport scheduled for 3:30 pm.
IMM verbally reviewed, copy provided to Poornima, copy placed on chart
[facility]
Report: [phone]

Plan: Return to [facility]. Ambulance transport
[2024-11-17 15:45] VITALS: BP 113/64
== END 2024-11-17 15:49 | DRG 73 ==
LOC: 4 WEST ACU 16:37
PROVIDERS: ADMITTING PHYSICIAN General Practice; EMERGENCY PHYSICIAN Emergency Medicine; FAMILY PHYSICIAN Internal Medicine
DX: E11.43 Type 2 diabetes mellitus with diabetic autonomic (poly)neuropathy (principal); J18.9 Pneumonia, unspecified organism; E11.65 Type 2 diabetes mellitus with hyperglycemia; E78.00 Pure hypercholesterolemia, unspecified; I10 Essential (primary) hypertension; K31.84 Gastroparesis; K21.9 Gastro-esophageal reflux disease without esophagitis; I69.320 Aphasia following cerebral infarction; I69.398 Other sequelae of cerebral infarction; Z79.4 Long term (current) use of insulin; Z79.84 Long term (current) use of oral hypoglycemic drugs; Z88.0 Allergy status to penicillin; Z79.82 Long term (current) use of aspirin; Z79.899 Other long term (current) drug therapy
CPT/HCPCS: 74022; 80048; 80053; 81003; 81015; 82962; 83036; 83735; 84443; 84484; 85025; 85027; 87070; 87086; 93005; 96361; 96374; 96375; 99285